=== PATIENT | male | born 1935 | race Caucasian/White ===

== ENCOUNTER 2016-10-13 05:47 | Day surgery (SDC) | payer MEDICARE, BC ==
[2016-10-13] MEDS ORDERED: Lactated Ringers 1,000 ML IV SCH (06:45)
[2016-10-13] MEDS ORDERED: Propofol 200 MG/20 ML SDV IV ONE (08:10)
[2016-10-13] MEDS ORDERED: Midazolam 1 MG/ML 2 ML SDV IV ONE (08:10)
[2016-10-13] MEDS ORDERED: Lidocaine 2% 100 MG/5 ML Syringe IVPUSH ONE (08:10)
--- NOTE | 2016-10-13 08:15 | PCM.HPR ---
H & P Addendum review - H & P Addendum Review Date Reviewed: 10/13/16 Patient was Examined: No Changes (Will also do EGD because of anemia, upper abdominal pain, weight loss, hx GERD)
--- NOTE | 2016-10-13 08:59 | PCM.OPNOTE ---
- General Post-Op/Procedure Note Date of Surgery/Procedure: 10/13/16 Operative Procedure(s): EGD. Colonoscopy with Bx Findings: Prox Ascending Colon Tumor Pre Op Diagnosis: Anemia, wt loss Post-Op Diagnosis: Same Anesthesia Technique: MAC Primary Surgeon: Blake Johnson Anesthesia Provider: Nataly Timmons Pathology: Colon Bx EBL in mLs: 1 Complications: None Condition: Good
[2016-10-13 10:40] VITALS: BP 114/52
[2016-10-13] MEDS ORDERED: Iopamidol 755 MG/ML 150 ML Bottle IV ONE (12:27)
--- NOTE | 2016-10-13 13:55 | OR ---
DATE OF OPERATION: 10/13/2016 SURGEON: Blake Johnson MD PREOPERATIVE DIAGNOSES: 1. Anemia. 2. Weight loss. POSTOPERATIVE DIAGNOSES: 1. Small hiatal hernia. 2. Proximal ascending colon tumor. PROCEDURE: 1. Esophagogastroduodenoscopy. 2. Colonoscopy with biopsy. ANESTHESIA: IV sedation. DESCRIPTION OF PROCEDURE: The patient was brought to the procedure room, where he was placed on his left side and IV sedation administered. Oral bite-block was placed and the upper endoscope advanced into the esophagus under direct vision without difficulty. Vocal cords were viewed and were normal. The scope was advanced to the third portion of the duodenum. Duodenum and pylorus were normal. Antrum and body of the stomach were normal. Retroflexion reveals a normal appearing fundus. A small regular hiatal hernia is noted. Squamocolumnar junction appears normal. There was no evidence of reflux esophagitis. Air was removed from the stomach and the scope withdrawn through the remaining esophagus, which appears normal. The patient tolerated this portion of the procedure well. Next, colonoscopy was performed, after digital rectal exam was performed, which was normal. The colonoscope was inserted and advanced to the level of the cecum without difficulty. Cecal position was confirmed by identifying the appendiceal lumen and ileocecal valve. Prep was good and surfaces were well visualized. Upon withdrawing the scope, there is an obvious malignancy in the proximal ascending colon that is at least half circumferential and is the source of his anemia. I did take several biopsies from this. The remaining ascending, transverse, and descending colon were normal. The colorectal anastomosis appears normal. Rectum was normal and retroflexion was normal. Air was removed and the scope was withdrawn. The patient tolerated the procedure well and returned to recovery in stable condition. RECOMMENDATIONS: I will have the patient obtain a CT scan of the chest, abdomen, and pelvis, and follow up with me at the end of the week for review of biopsies. /[id number] MARQUES/ELEAZAR
--- NOTE | 2016-10-13 15:44 | CT ---
INDICATION: Follow-up colon tumor, ascending colon. CT CHEST/ABDOMEN/PELVIS WITH CONTRAST: Spiral 2.5-mm axial sections were obtained through the chest, abdomen, and pelvis with oral and IV contrast (150 mL Isovue-370 at 1 mL per second due to limited IV access). Examination was obtained 10/13/2016. No comparison was available. Total Exam DLP = 2467.15 mGy-cm. CT CHEST: Examination of the chest was obtained, as noted above, revealing relatively minimal apical pleuroparenchymal scarring. There are some emphysematous changes noted in the lungs. No definite active infiltrate, effusion, or nodular changes could be identified to suggest malignancy or pneumonia or pleuritis. There is some pleuroparenchymal scarring of mild degree. Minimal mediastinal lymphadenopathy is noted, which is nonspecific. No mediastinal masses were identified. Calcifications are noted in the thoracic aorta, brachiocephalic vessels, and coronary arteries. The heart appears slightly generous in size. Aortic valvular area calcifications also noted. The gallbladder is absent with clips at the cystic duct compatible with cholecystectomy. The liver had a normal appearance. The spleen, pancreas, and adrenal glands appeared essentially normal. Renal fascial thickening is noted, compatible with a mild degree of renal cortical scarring. The kidneys otherwise appeared unremarkable. No retroperitoneal masses were identified. Calcifications are noted in the aorta, superior mesenteric artery, at the origins of the renal arteries, in the iliac, and minimally in the left femoral artery. Radioactive seeds are noted in the prostate, which does not appear to be enlarged. The urinary bladder appeared fairly normal. There is suggestion of a very early minimal right inguinal hernia including only fat and normal structures in that area. Inguinal lymphadenopathy is noted, which is nonspecific. Degenerative changes and disk disease with vacuum disk phenomenon are noted at the L5-S1 level. Mild hypertrophic degenerative changes are noted off vertebral bodies in the lumbar area in general, with bridging hyperostotic changes anterolaterally at T12-L1 and in mid and lower thoracic spine included on the study. The appendix is not definitely visualized. This should be correlated clinically. No finding to suggest metastatic disease was identified. A partially encircling overhanging edge soft tissue density is noted in the mid ascending colon, compatible with a carcinoma. No definite synchronous lesion is identified. There appears to have been previous surgery at the level of the sigmoid colon, with anastomoses there. No evidence of bowel obstruction was seen. IMPRESSION: 1. No evidence of metastatic disease could be identified in the chest, abdomen , or pelvis. 2. 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 3. Radioactive seeds at the prostate noted compatible with previous prostatic surgery. 4. Degenerative changes and disk disease L5-S1. Hypertrophic degenerative changes thoracolumbar spine. 5. Post-surgical change sigmoid colon. 6. Minimal left inguinal hernia which appears to include only fat. 7. Mild degree of renal cortical scarring. 8. ASD/ASHD. 9. Appendix not definitely visualized. 10. Post cholecystectomy. CT ABDOMEN: Examination of the abdomen was obtained by CT, as noted above, and revealed findings compatible with carcinoma in the mid ascending colon, involving the mucosa posteriorly - encircling the lumen posteriorly over a relatively short interval of the ascending colon. No definite retroperitoneal masses were identified with a mild degree of retroperitoneal lymphadenopathy, which is nonspecific. No definite evidence of metastatic disease was seen. CT PELVIS: Examination of the pelvis was obtained by CT, as noted above, and revealed evidence of radioactive seeds in the area of the prostate, compatible with previous prostatic CA. No definite metastatic disease process was identified. The appendix was not definitely visualized. Calcifications are noted in the arteries. Degenerative changes and disk disease are noted at L5-S1. Report faxed to Dr. Johnson on 10/13/2016 at 1541 hours. MTDD
== END 2016-10-13 10:20 | disposition home or self-care (01) ==
LOC: FB.SDS 05:47
PROVIDERS: ATTEND Surgery
DX: C18.2 Malignant neoplasm of ascending colon (principal); K44.9 Diaphragmatic hernia without obstruction or gangrene; Z88.0 Allergy status to penicillin; Z79.82 Long term (current) use of aspirin; Z79.899 Other long term (current) drug therapy
CPT/HCPCS: 00810; 36415; 43235; 45380; 71260; 74177; 80053; 82378; 85025; 88305; J2250; J2704; J7120; Q9967

== ENCOUNTER 2016-10-20 10:30 | Inpatient (IN) | payer MEDICARE, BC ==
[2016-10-20] MEDS ORDERED: Lactated Ringers 1,000 ML IV SCH (11:00)
[2016-10-20] MEDS ORDERED: Neostigmine Methylsulfate 10 MG/10 ML MDV IVPUSH ONE (12:30)
[2016-10-20] MEDS ORDERED: Rocuronium 50 MG/5 ML Vial IV ONE (12:30)
[2016-10-20] MEDS ORDERED: Labetalol 100 MG/20 ML MDV IV ONE (12:30)
[2016-10-20] MEDS ORDERED: Glycopyrrolate 0.2 MG/ML 5 ML MDV IV ONE (12:30)
[2016-10-20] MEDS ORDERED: Succinylcholine 200 MG/10 ML MDV IV ONE (12:30)
[2016-10-20] MEDS ORDERED: Citric Acid/Sodium Citrate Solution 30 ML Cup PO ONE (12:30)
[2016-10-20] MEDS ORDERED: cefOXitin 2 GM in Sodium Chloride 0.9% 100 ML IV ONE (12:30)
[2016-10-20] MEDS ORDERED: Ketorolac 30 MG/ML SDV IVPUSH ONE (12:30)
[2016-10-20] MEDS ORDERED: Lactated Ringers 1,000 ML IV ONE (12:30)
[2016-10-20] MEDS ORDERED: Ondansetron 4 MG/2 ML SDV IVPUSH ONE (12:30)
[2016-10-20] MEDS ORDERED: fentaNYL 100 MCG/2 ML SDV IV ONE (12:30)
[2016-10-20] MEDS ORDERED: Midazolam 1 MG/ML 2 ML SDV IV ONE (12:30)
[2016-10-20] MEDS ORDERED: Propofol 200 MG/20 ML SDV IV ONE (12:30)
--- NOTE | 2016-10-20 15:11 | PCM.HPR ---
H & P Addendum review - H & P Addendum Review Date of Original H & P: 10/17/16 Date Reviewed: 10/20/16 Time Reviewed: 10:30 Patient was Examined: No Changes
--- NOTE | 2016-10-20 15:13 | PCM.OPNOTE ---
- General Post-Op/Procedure Note Date of Surgery/Procedure: 10/20/16 Operative Procedure(s): Right Colectomy; Adhesiolysis Findings: Asc Colon Tumor Pre Op Diagnosis: Colon Ca Post-Op Diagnosis: Same Anesthesia Technique: General ET Tube Primary Surgeon: Blake Johnson Anesthesia Provider: Nataly Timmons Hospital Carrier: Bruce Fink Pathology: Right Colon EBL in mLs: 200 Complications: None Condition: Good
[2016-10-20] MEDS ORDERED: Naloxone 0.4 MG/ML SDV IVPUSH PRN (15:21)
[2016-10-20] MEDS: Morphine 2 MG/ML Syringe IVPUSH PRN ×2 (16:00→16:22)
[2016-10-20] MEDS: Morphine PF 30 MG/30 ML PCA Vial IV PRN (17:12)
[2016-10-20] MEDS: Pantoprazole 40 MG Vial IVPUSH SCH (17:29)
[2016-10-20] MEDS: Ketorolac 15 MG/ML SDV IVPUSH SCH (19:38)
[2016-10-21] MEDS: Ketorolac 15 MG/ML SDV IVPUSH SCH ×4 (00:50→19:35)
[2016-10-21] MEDS: Lactated Ringers 1,000 ML IV SCH ×3 (03:56→21:54)
[2016-10-21] MEDS: Morphine PF 30 MG/30 ML PCA Vial IV PRN (04:12)
--- NOTE | 2016-10-21 09:17 | PCM.SURGPN ---
- General Info Date of Service: 10/21/16 POD#: 1 Functional Status: Reports: Pain Controlled, Ambulating - Review of Systems General: Reports: No Symptoms Pulmonary: Reports: No Symptoms Cardiovascular: Reports: No Symptoms Gastrointestinal: Reports: No Symptoms - Patient Data Vitals - Most Recent: Last Vital Signs Temp 98.2 F 10/21/16 03:55 Pulse 74 10/21/16 07:57 Resp 18 10/21/16 03:55 BP 132/64 10/21/16 03:55 Pulse Ox 93 L 10/21/16 07:57 Weight - Most Recent: 130.635 kg I&O - Last 24 Hours: Intake & Output 10/20/16 10/21/16 10/21/16 22:59 06:59 14:59 Intake Total 665 988 Output Total 175 300 Balance 490 688 Lab Results Last 24 Hrs: Laboratory Results - last 24 hr 10/20/16 10/21/16 10/21/16 Range/Units 11:50 06:30 06:30 WBC 12.8 H (4.5-12.0) X10-3/uL RBC 3.85 L (4.30-5.75) x10(6)uL Hgb 8.5 L (11.5-15.5) g/dL Hct 27.6 L (30.0-51.3) % MCV 71.5 L (80-96) fL MCH 22.2 L (27.7-33.6) pg MCHC 31.0 L (32.2-35.4) g/dL RDW 20.3 H (11.5-15.5) % Plt Count 340 (125-369) X10(3)uL MPV 8.3 (7.4-10.4) fL Neut % (Auto) 84.1 H (46-82) % Lymph % (Auto) 8.2 L (13-37) % Todd % (Auto) 7.2 (4-12) % Eos % (Auto) 0 L (1.0-5.0) % Baso % (Auto) 0 (0-2) % Neut # (Auto) 10.8 H (1.6-8.3) # Lymph # (Auto) 1.0 (0.6-5.0) # Todd # (Auto) 0.9 (0.0-1.3) # Eos # (Auto) 0.0 (0.0-0.8) # Baso # (Auto) 0.1 (0.0-0.2) # Sodium 137 (135-145) mmol/L Potassium 4.2 (3.5-5.3) mmol/L Chloride 106 (100-110) mmol/L Carbon Dioxide 25 (23-29) mmol/L BUN 14 (8-23) mg/dL Creatinine 1.0 (0.6-1.3) mg/dL Est Cr Clr Drug Dosing 62.86 mL/min Estimated GFR (MDRD) > 60 (>60) BUN/Creatinine Ratio 14.0 (9-20) Glucose 153 H (80-116) mg/dL Calcium 8.8 (8.6-10.2) mg/dL Blood Type A POSITIVE Gel Antibody Screen Negative Med Orders - Current: Current Medications Enoxaparin Sodium (Lovenox) 30 mg SUBCUT Q24H [facility] [place] Lactated Ringer's (Ringers, Lactated) 1,000 mls @ 125 mls/hr IV ASDIRECTED [facility] Last Admin: 10/21/16 03:56 Dose: 125 mls/hr Cefoxitin Sodium 1 gm/ Sodium (Chloride) 50 mls @ 100 mls/hr IV Q6H [facility] [place] Stop: 10/22/16 07:29 Last Admin: 10/21/16 06:27 Dose: 100 mls/hr Ketorolac Tromethamine (Toradol) 15 mg IVPUSH Q6H [facility] [place] Stop: 10/25/16 15:20 Last Admin: 10/21/16 06:27 Dose: 15 mg Metoprolol Tartrate (Lopressor) 25 mg PO BID [facility] [place] Morphine Sulfate (Morphine Hotel Or Motel Receptionist 30 Mg In 30 Ml) 0 mg IV ASDIRECTED PRN; Protocol PRN Reason: Pain (severe 7-10) Last Admin: 10/21/16 04:12 Dose: 30 mg Morphine Sulfate (Morphine) 2 mg IVPUSH Q3M PRN PRN Reason: Abdominal Pain Last Admin: 10/20/16 16:22 Dose: 2 mg Naloxone HCl (Narcan) 0.4 mg IVPUSH Q2M PRN PRN Reason: Respiratory Distress Pantoprazole Sodium (Protonix Iv) 40 mg IVPUSH DAILY@1600 [facility] Last Admin: 10/20/16 17:29 Dose: 40 mg Sodium Chloride (Saline Flush) 10 ml FLUSH ASDIRECTED PRN PRN Reason: Keep Vein Open Discontinued Medications Lactated Ringer's (Ringers, Lactated) 1,000 mls @ 125 mls/hr IV ASDIRECTED [facility] [place] Last Admin: 10/20/16 12:10 Dose: 125 mls/hr Cefoxitin Sodium 2 gm/ Sodium (Chloride) 100 mls @ 200 mls/hr IV ONETIME ONE Stop: 10/20/16 12:59 Last Admin: 10/20/16 12:20 Dose: 200 mls/hr - Exam Wound/Incisions: Dressing Dry and Intact General: Alert, Oriented Lungs: Clear to Auscultation, Normal Respiratory Effort Cardiovascular: Regular Rate, Regular Rhythm GI/Abdominal Exam: Soft - Problem List Review Problem List Initiated/Reviewed/Updated: Yes - My Orders Last 24 Hours: Active Orders 24 hr Category Date Time Status Patient Status [ADT] Routine ADT 10/20/16 11:00 Active Ambulate [RC] QSHIFT Care 10/20/16 15:13 Active Antiembolic Devices [RC] .Routine Care 10/20/16 15:16 Active Cardiac Monitoring [RC] .As Directed Care 10/20/16 15:21 Inactive Communication Order [RC] STAT Care 10/20/16 15:21 Active Notify Provider [RC] PRN Care 10/20/16 15:21 Active Oxygen Therapy [RC] PRN Care 10/20/16 15:13 Active FINANCIAL AID MANAGER Record [RC] 06,14,22 Care 10/20/16 15:21 Active Pulse Oximetry [RC] CONTINUOUS Care 10/20/16 15:21 Inactive RT Incentive Spirometry [RC] Q2HWA Care 10/20/16 15:13 Active VTE/DVT Education [RC] Click to Edit Care 10/20/16 15:16 Active Vital Signs [RC] 00,04,08,12,16,20 Care 10/20/16 15:13 Active Nothing Per Oral Diet [DIET] Diet 10/20/16 Dinner Active Enoxaparin [Lovenox] Med 10/21/16 12:00 Active 30 mg SUBCUT Q24H Ketorolac [Toradol] Med 10/20/16 19:00 Active 15 mg IVPUSH Q6H Lactated Ringers [Ringers, Lactated] 1,000 ml Med 10/20/16 15:15 Active IV ASDIRECTED Metoprolol Tartrate [Lopressor] Med 10/21/16 09:00 Active 25 mg PO BID Morphine Med 10/20/16 15:38 Active 2 mg IVPUSH Q3M PRN Morphine PF [Morphine FINANCIAL AID MANAGER 30 MG in 30 ML] Med 10/20/16 15:21 Active See Protocol IV ASDIRECTED PRN Naloxone [Narcan] Med 10/20/16 15:21 Active 0.4 mg IVPUSH Q2M PRN Pantoprazole [ProTONIX IV] Med 10/20/16 16:00 Active 40 mg IVPUSH DAILY@1600 Sodium Chloride 0.9% [Saline Flush] Med 10/20/16 11:00 Active 10 ml FLUSH ASDIRECTED PRN cefOXitin [Mefoxin] 1 gm Med 10/20/16 19:00 Active Sodium Chloride 0.9% [Normal Saline] 50 ml IV Q6H DVT/VTE Prophylaxis Reflex [OM.PC] Per Unit Routine Oth 10/20/16 15:16 Ordered Medication Discontinuation Instructions [OM.PC] Stat Oth 10/20/16 15:21 Ordered Peripheral IV Insertion Adult [OM.PC] Routine Oth 10/20/16 11:00 Ordered Sequential Compression Device [OM.PC] Routine Oth 10/20/16 11:00 Ordered Resuscitation Status Routine Resus Stat 10/20/16 09:57 Ordered EKG 12 Lead [EK] Routine Ther 10/20/16 10:23 Ordered Medication Orders Enoxaparin Sodium (Lovenox) 30 mg SUBCUT Q24H [facility] Lactated Ringer's (Ringers, Lactated) 1,000 mls @ 125 mls/hr IV ASDIRECTED [facility] Last Admin: 10/21/16 03:56 Dose: 125 mls/hr Cefoxitin Sodium 1 gm/ Sodium (Chloride) 50 mls @ 100 mls/hr IV Q6H [facility] Stop: 10/22/16 07:29 Last Admin: 10/21/16 06:27 Dose: 100 mls/hr Infusion: 10/21/16 01:20 Dose: 100 mls/hr Admin: 10/21/16 00:50 Dose: 100 mls/hr Infusion: 10/20/16 19:52 Dose: 100 mls/hr Admin: 10/20/16 19:22 Dose: 100 mls/hr Ketorolac Tromethamine (Toradol) 15 mg IVPUSH Q6H [facility] Stop: 10/25/16 15:20 Last Admin: 10/21/16 06:27 Dose: 15 mg Admin: 10/21/16 00:50 Dose: 15 mg Admin: 10/20/16 19:38 Dose: 15 mg Metoprolol Tartrate (Lopressor) 25 mg PO BID [facility] [place] Morphine Sulfate (Morphine Hotel [employer]el Receptionist 30 Mg In 30 Ml) 0 mg IV ASDIRECTED PRN; Protocol PRN Reason: Pain (severe 7-10) Last Admin: 10/21/16 04:12 Dose: 30 mg Admin: 10/20/16 17:12 Dose: 30 mg Morphine Sulfate (Morphine) 2 mg IVPUSH Q3M PRN PRN Reason: Abdominal Pain Last Admin: 10/20/16 16:22 Dose: 2 mg Admin: 10/20/16 16:00 Dose: 2 mg Naloxone HCl (Narcan) 0.4 mg IVPUSH Q2M PRN PRN Reason: Respiratory Distress Pantoprazole Sodium (Protonix Iv) 40 mg IVPUSH DAILY@1600 [facility] Last Admin: 10/20/16 17:29 Dose: 40 mg Sodium Chloride (Saline Flush) 10 ml FLUSH ASDIRECTED PRN PRN Reason: Keep Vein Open - Assessment Assessment (Free Text/Narrative):: Doing well POD #1 Hgb 8.5 - Plan Plan (Free Text/Narrative):: Cont as is, start Lovenox
[2016-10-21] MEDS: Metoprolol Tartrate 25 MG Tab PO SCH ×2 (10:08→21:53)
[2016-10-21] MEDS: Promethazine 25 MG in Sodium Chloride 0.9% 50 ML IV PRN (11:33)
[2016-10-21] MEDS: Enoxaparin 30 MG/0.3 ML Syringe SUBCUT SCH (12:48)
[2016-10-21] MEDS: Pantoprazole 40 MG Vial IVPUSH SCH (18:06)
[2016-10-22] MEDS: Morphine PF 30 MG/30 ML PCA Vial IV PRN (00:22)
[2016-10-22] MEDS: Ketorolac 15 MG/ML SDV IVPUSH SCH ×4 (00:25→19:46)
[2016-10-22] MEDS: Lactated Ringers 1,000 ML IV SCH ×3 (06:12→23:21)
[2016-10-22] MEDS: Metoprolol Tartrate 25 MG Tab PO SCH ×2 (09:27→21:05)
[2016-10-22] MEDS: Enoxaparin 30 MG/0.3 ML Syringe SUBCUT SCH (12:10)
[2016-10-22] MEDS: Sodium Chloride 0.9% 10 ML Syringe FLUSH PRN (12:18)
--- NOTE | 2016-10-22 13:37 | PCM.SURGPN ---
- General Info Date of Service: 10/22/16 POD#: 2 Functional Status: Reports: Pain Controlled, Ambulating - Review of Systems General: Reports: No Symptoms Pulmonary: Reports: No Symptoms Cardiovascular: Reports: No Symptoms Gastrointestinal: Reports: No Symptoms, Abdominal Pain (controlled) - Patient Data Vitals - Most Recent: Last Vital Signs Temp 98.6 F 10/22/16 12:00 Pulse 79 10/22/16 12:00 Resp 18 10/22/16 12:00 BP 123/70 10/22/16 12:00 Pulse Ox 93 L 10/22/16 12:00 Weight - Most Recent: 130.635 kg I&O - Last 24 Hours: Intake & Output 10/21/16 10/22/16 10/22/16 22:59 06:59 14:59 Intake Total 1015 994 Output Total 350 350 Balance 665 644 Med Orders - Current: Current Medications Enoxaparin Sodium (Lovenox) 30 mg SUBCUT Q24H [facility] Last Admin: 10/22/16 12:10 Dose: 30 mg Lactated Ringer's (Ringers, Lactated) 1,000 mls @ 125 mls/hr IV ASDIRECTED [facility] Last Admin: 10/22/16 06:12 Dose: 125 mls/hr Promethazine HCl 25 mg/ Sodium (Chloride) 51 mls @ 200 mls/hr IV Q6H PRN PRN Reason: Nausea/Vomiting Last Admin: 10/21/16 11:33 Dose: 200 mls/hr Ketorolac Tromethamine (Toradol) 15 mg IVPUSH Q6H [facility] Stop: 10/25/16 15:20 Last Admin: 10/22/16 12:11 Dose: 15 mg Metoprolol Tartrate (Lopressor) 25 mg PO BID [facility] Last Admin: 10/22/16 09:27 Dose: 25 mg Morphine Sulfate (Morphine Anodiser 30 Mg In 30 Ml) 0 mg IV ASDIRECTED PRN; Protocol PRN Reason: Pain (severe 7-10) Last Admin: 10/22/16 00:22 Dose: 30 mg Naloxone HCl (Narcan) 0.4 mg IVPUSH Q2M PRN PRN Reason: Respiratory Distress Pantoprazole Sodium (Protonix Iv) 40 mg IVPUSH DAILY@1600 [facility] Last Admin: 10/21/16 18:06 Dose: 40 mg Sodium Chloride (Saline Flush) 10 ml FLUSH ASDIRECTED PRN PRN Reason: Keep Vein Open Last Admin: 10/22/16 12:18 Dose: 10 ml Discontinued Medications Lactated Ringer's (Ringers, Lactated) 1,000 mls @ 125 mls/hr IV ASDIRECTED [facility] Last Admin: 10/20/16 12:10 Dose: 125 mls/hr Cefoxitin Sodium 2 gm/ Sodium (Chloride) 100 mls @ 200 mls/hr IV ONETIME ONE Stop: 10/20/16 12:59 Last Admin: 10/20/16 12:20 Dose: 200 mls/hr Cefoxitin Sodium 1 gm/ Sodium (Chloride) 50 mls @ 100 mls/hr IV Q6H [facility] Stop: 10/22/16 07:29 Last Admin: 10/22/16 06:12 Dose: 100 mls/hr Morphine Sulfate (Morphine) 2 mg IVPUSH Q3M PRN PRN Reason: Abdominal Pain Last Admin: 10/20/16 16:22 Dose: 2 mg - Exam Wound/Incisions: Healing Well General: Alert, Oriented Lungs: Clear to Auscultation, Normal Respiratory Effort GI/Abdominal Exam: Soft, Non-Tender - Problem List Review Problem List Initiated/Reviewed/Updated: Yes - My Orders Last 24 Hours: Active Orders 24 hr Category Date Time Status DC Denney Catheter [Urinary Catheter Removal] [RC] Per Care 10/22/16 13:34 Ordered Unit Routine Medication Orders Enoxaparin Sodium (Lovenox) 30 mg SUBCUT Q24H [facility] Last Admin: 10/22/16 12:10 Dose: 30 mg Admin: 10/21/16 12:48 Dose: 30 mg Lactated Ringer's (Ringers, Lactated) 1,000 mls @ 125 mls/hr IV ASDIRECTED [facility] Last Admin: 10/22/16 06:12 Dose: 125 mls/hr Infusion: 10/22/16 05:54 Dose: 125 mls/hr Admin: 10/21/16 21:54 Dose: 125 mls/hr Infusion: 10/21/16 20:49 Dose: 125 mls/hr Admin: 10/21/16 12:49 Dose: 125 mls/hr Infusion: 10/21/16 11:56 Dose: 125 mls/hr Admin: 10/21/16 03:56 Dose: 125 mls/hr Promethazine HCl 25 mg/ Sodium (Chloride) 51 mls @ 200 mls/hr IV Q6H PRN PRN Reason: Nausea/Vomiting Last Admin: 10/21/16 11:33 Dose: 200 mls/hr Ketorolac Tromethamine (Toradol) 15 mg IVPUSH Q6H [facility] Stop: 10/25/16 15:20 Last Admin: 10/22/16 12:11 Dose: 15 mg Admin: 10/22/16 06:12 Dose: 15 mg Admin: 10/22/16 00:25 Dose: 15 mg Admin: 10/21/16 19:35 Dose: 15 mg Admin: 10/21/16 12:45 Dose: 15 mg Admin: 10/21/16 06:27 Dose: 15 mg Admin: 10/21/16 00:50 Dose: 15 mg Admin: 10/20/16 19:38 Dose: 15 mg Metoprolol Tartrate (Lopressor) 25 mg PO BID [facility] Last Admin: 10/22/16 09:27 Dose: 25 mg Admin: 10/21/16 21:53 Dose: 25 mg Admin: 10/21/16 10:08 Dose: 25 mg Morphine Sulfate (Morphine Anodiser 30 Mg In 30 Ml) 0 mg IV ASDIRECTED PRN; Protocol PRN Reason: Pain (severe 7-10) Last Admin: 10/22/16 00:22 Dose: 30 mg Admin: 10/21/16 04:12 Dose: 30 mg Admin: 10/20/16 17:12 Dose: 30 mg Naloxone HCl (Narcan) 0.4 mg IVPUSH Q2M PRN PRN Reason: Respiratory Distress Pantoprazole Sodium (Protonix Iv) 40 mg IVPUSH DAILY@1600 [facility] Last Admin: 10/21/16 18:06 Dose: 40 mg Admin: 10/20/16 17:29 Dose: 40 mg Sodium Chloride (Saline Flush) 10 ml FLUSH ASDIRECTED PRN PRN Reason: Keep Vein Open Last Admin: 10/22/16 12:18 Dose: 10 ml - Assessment Assessment (Free Text/Narrative):: Doing well POD #2 - Plan Plan (Free Text/Narrative):: Discontinue CYBER REVERSE ENGINEER continuous rate D/C denney
--- NOTE | 2016-10-22 15:05 | OR ---
DATE OF OPERATION: 10/22/2016 SURGEON: Blake Johnson MD PREOPERATIVE DIAGNOSIS: Carcinoma of ascending colon. POSTOPERATIVE DIAGNOSIS: Carcinoma of ascending colon with adhesions. PROCEDURE PERFORMED: Right colectomy with adhesiolysis. CSR: Bruce Fink MD. ANESTHESIA: General. DESCRIPTION OF PROCEDURE: The patient was brought to the operating room, where general endotracheal anesthesia was administered. A Atkinson catheter was inserted and Flowtrons applied. The abdomen was prepped with ChloraPrep and draped sterilely. An upper midline incision was made through his previous scar and extended into the peritoneal cavity without difficulty. There were fairly extensive adhesions along the anterior abdominal wall consisting of omentum, colon, and small bowel. Approximately 30 minutes was spent, taking down and freeing these adhesions. The wound protractor was then placed and Acosta retractor system set up. The cecum and ascending colon were mobilized along the peritoneal reflection using electrocautery. This continued up to the hepatic flexure and proximal transverse colon. The middle colic vessel was identified and the mesocolon transected to the right of the middle colic vessels. The omentum was split throughout this level also. The transverse colon was transected with a BRIANNA 60 stapler. The right colic vessels were taken down with pions and doubly tied with #0 Vicryl sutures. The transection line was decided to be approximately 10 cm proximal to the ileocecal valve, and the small bowel mesentery was scored at this level and divided with hemostats and 0 Vicryl ties. The terminal ilium was divided with a BRIANNA 60 stapler. The ileocolic vessels were then taken down with pions and 0 Vicryl ties. Specimen was handed off for pathology and opened. The tumor was evident. I did not feel any gross lymphadenopathy. The ileocolic anastomosis was then performed by using one application of the BRIANNA 60 stapler across the antimesenteric surfaces and the colotomy closed with a TA- 60 stapler. The anterior surface of the anastomosis and heel of the anastomosis were secured with interrupted 3-0 silk sutures. Mesenteric defect was closed with running 2-0 chromic. Wound was thoroughly irrigated and hemostasis assured. The general exploration revealed palpable and visible small bowel to be normal. The right lobe of liver feels to have a cyst at the dome but no evidence of metastatic disease. The gallbladder was surgically absent. Midline fascia was closed with running 2-0 Prolene with a few interrupted 1-0 PDS internal retention sutures. The wound was thoroughly irrigated, and the skin closed with marquita. A sterile dressing was applied. The patient tolerated the procedure well. Estimated blood loss was 200 mL. He returned to postanesthesia in stable condition. /[id number] MARQUES/ELEAZAR
[2016-10-22] MEDS: Pantoprazole 40 MG Vial IVPUSH SCH (16:27)
[2016-10-23] MEDS: Ketorolac 15 MG/ML SDV IVPUSH SCH ×5 (01:51→19:43)
[2016-10-23] MEDS: Morphine PF 30 MG/30 ML PCA Vial IV PRN (01:59)
[2016-10-23] MEDS: Metoprolol Tartrate 25 MG Tab PO SCH ×2 (09:45→21:08)
[2016-10-23] MEDS: Enoxaparin 30 MG/0.3 ML Syringe SUBCUT SCH (12:12)
[2016-10-23] MEDS: Lactated Ringers 1,000 ML IV SCH (15:50)
[2016-10-23] MEDS: Pantoprazole 40 MG Vial IVPUSH SCH (15:54)
--- NOTE | 2016-10-23 19:21 | PCM.SURGPN ---
- General Info Date of Service: 10/23/16 Date of Surgery/Procedure: 10/20/16 POD#: 3 Functional Status: Reports: Pain Controlled (Patient notes moderate pain with activity) - Review of Systems Pulmonary: Reports: No Symptoms Gastrointestinal: Denies: Flatus, Nausea, Vomiting Musculoskeletal: Denies: Leg Pain - Patient Data Vitals - Most Recent: Last Vital Signs Temp 97.6 F 10/23/16 16:10 Pulse 75 10/23/16 16:10 Resp 18 10/23/16 16:10 BP 129/65 10/23/16 16:10 Pulse Ox 96 10/23/16 16:10 Weight - Most Recent: 288 lb I&O - Last 24 Hours: Intake & Output 10/23/16 10/23/16 10/23/16 06:59 14:59 22:59 Intake Total 815 Output Total 450 Balance -450 815 Med Orders - Current: Current Medications Enoxaparin Sodium (Lovenox) 30 mg SUBCUT Q24H [facility] Last Admin: 10/23/16 12:12 Dose: 30 mg Lactated Ringer's (Ringers, Lactated) 1,000 mls @ 125 mls/hr IV ASDIRECTED [facility] Last Admin: 10/23/16 15:50 Dose: 125 mls/hr Promethazine HCl 25 mg/ Sodium (Chloride) 51 mls @ 200 mls/hr IV Q6H PRN PRN Reason: Nausea/Vomiting Last Admin: 10/21/16 11:33 Dose: 200 mls/hr Ketorolac Tromethamine (Toradol) 15 mg IVPUSH Q6H [facility] Stop: 10/25/16 15:20 Last Admin: 10/23/16 16:31 Dose: Not Given Metoprolol Tartrate (Lopressor) 25 mg PO BID [facility] Last Admin: 10/23/16 09:45 Dose: 25 mg Morphine Sulfate (Morphine Employment Clerk 30 Mg In 30 Ml) 0 mg IV ASDIRECTED PRN; Protocol PRN Reason: Pain (severe 7-10) Last Admin: 10/23/16 01:59 Dose: 30 mg Naloxone HCl (Narcan) 0.4 mg IVPUSH Q2M PRN PRN Reason: Respiratory Distress Pantoprazole Sodium (Protonix Iv) 40 mg IVPUSH DAILY@1600 [facility] Last Admin: 10/23/16 15:54 Dose: 40 mg Sodium Chloride (Saline Flush) 10 ml FLUSH ASDIRECTED PRN PRN Reason: Keep Vein Open Last Admin: 10/22/16 12:18 Dose: 10 ml Discontinued Medications Lactated Ringer's (Ringers, Lactated) 1,000 mls @ 125 mls/hr IV ASDIRECTED [facility] Last Admin: 10/20/16 12:10 Dose: 125 mls/hr Cefoxitin Sodium 2 gm/ Sodium (Chloride) 100 mls @ 200 mls/hr IV ONETIME ONE Stop: 10/20/16 12:59 Last Admin: 10/20/16 12:20 Dose: 200 mls/hr Cefoxitin Sodium 1 gm/ Sodium (Chloride) 50 mls @ 100 mls/hr IV Q6H [facility] Stop: 10/22/16 07:29 Last Admin: 10/22/16 06:12 Dose: 100 mls/hr Morphine Sulfate (Morphine) 2 mg IVPUSH Q3M PRN PRN Reason: Abdominal Pain Last Admin: 10/20/16 16:22 Dose: 2 mg - Exam Wound/Incisions: Dressing Dry and Intact General: Alert, Oriented Lungs: Normal Respiratory Effort - Problem List Review Problem List Initiated/Reviewed/Updated: Yes - My Orders Last 24 Hours: Active Orders 24 hr Category Date Time Status BASIC METABOLIC PANEL,BMP [CHEM] Routine Lab 10/24/16 07:00 Ordered CBC W/O DIFF,HEMOGRAM [HEME] Routine Lab 10/24/16 07:00 Ordered Medication Orders Enoxaparin Sodium (Lovenox) 30 mg SUBCUT Q24H [facility] Last Admin: 10/23/16 12:12 Dose: 30 mg Admin: 10/22/16 12:10 Dose: 30 mg Admin: 10/21/16 12:48 Dose: 30 mg Lactated Ringer's (Ringers, Lactated) 1,000 mls @ 125 mls/hr IV ASDIRECTED [facility] Last Admin: 10/23/16 15:50 Dose: 125 mls/hr Infusion: 10/23/16 07:21 Dose: 125 mls/hr Admin: 10/22/16 23:21 Dose: 125 mls/hr Infusion: 10/22/16 23:06 Dose: 125 mls/hr Admin: 10/22/16 15:06 Dose: 125 mls/hr Infusion: 10/22/16 14:12 Dose: 125 mls/hr Admin: 10/22/16 06:12 Dose: 125 mls/hr Infusion: 10/22/16 05:54 Dose: 125 mls/hr Admin: 10/21/16 21:54 Dose: 125 mls/hr Infusion: 10/21/16 20:49 Dose: 125 mls/hr Admin: 10/21/16 12:49 Dose: 125 mls/hr Infusion: 10/21/16 11:56 Dose: 125 mls/hr Admin: 10/21/16 03:56 Dose: 125 mls/hr Promethazine HCl 25 mg/ Sodium (Chloride) 51 mls @ 200 mls/hr IV Q6H PRN PRN Reason: Nausea/Vomiting Last Admin: 10/21/16 11:33 Dose: 200 mls/hr Ketorolac Tromethamine (Toradol) 15 mg IVPUSH Q6H [facility] Stop: 10/25/16 15:20 Last Admin: 10/23/16 16:31 Dose: Not Given Admin: 10/23/16 14:35 Dose: 15 mg Admin: 10/23/16 01:51 Dose: 15 mg Admin: 10/22/16 19:46 Dose: 15 mg Admin: 10/22/16 12:11 Dose: 15 mg Admin: 10/22/16 06:12 Dose: 15 mg Admin: 10/22/16 00:25 Dose: 15 mg Admin: 10/21/16 19:35 Dose: 15 mg Admin: 10/21/16 12:45 Dose: 15 mg Admin: 10/21/16 06:27 Dose: 15 mg Admin: 10/21/16 00:50 Dose: 15 mg Admin: 10/20/16 19:38 Dose: 15 mg Metoprolol Tartrate (Lopressor) 25 mg PO BID [facility] Last Admin: 10/23/16 09:45 Dose: 25 mg Admin: 10/22/16 21:05 Dose: 25 mg Admin: 10/22/16 09:27 Dose: 25 mg Admin: 10/21/16 21:53 Dose: 25 mg Admin: 10/21/16 10:08 Dose: 25 mg Morphine Sulfate (Morphine Employment Clerk 30 Mg In 30 Ml) 0 mg IV ASDIRECTED PRN; Protocol PRN Reason: Pain (severe 7-10) Last Admin: 10/23/16 01:59 Dose: 30 mg Admin: 10/22/16 00:22 Dose: 30 mg Admin: 10/21/16 04:12 Dose: 30 mg Admin: 10/20/16 17:12 Dose: 30 mg Naloxone HCl (Narcan) 0.4 mg IVPUSH Q2M PRN PRN Reason: Respiratory Distress Pantoprazole Sodium (Protonix Iv) 40 mg IVPUSH DAILY@1600 [facility] Last Admin: 10/23/16 15:54 Dose: 40 mg Admin: 10/22/16 16:27 Dose: 40 mg Admin: 10/21/16 18:06 Dose: 40 mg Admin: 10/20/16 17:29 Dose: 40 mg Sodium Chloride (Saline Flush) 10 ml FLUSH ASDIRECTED PRN PRN Reason: Keep Vein Open Last Admin: 10/22/16 12:18 Dose: 10 ml - Assessment Assessment (Free Text/Narrative):: POD#3 Right Colectomy - progressing satisfactory - afebrile no flatus yet voiding OK without denney - Plan Plan (Free Text/Narrative):: Continue IV and pain control encourage ambulation continue NPO until evidence of return of bowel function
[2016-10-24] MEDS: Ketorolac 15 MG/ML SDV IVPUSH SCH ×4 (01:28→18:10)
[2016-10-24] MEDS: Lactated Ringers 1,000 ML IV SCH ×2 (02:06→14:42)
[2016-10-24] MEDS: Promethazine 25 MG in Sodium Chloride 0.9% 50 ML IV PRN ×2 (06:18→18:12)
[2016-10-24] MEDS: Metoprolol Tartrate 25 MG Tab PO SCH ×2 (08:39→22:02)
[2016-10-24] MEDS ORDERED: Iopamidol 755 MG/ML 150 ML Bottle IV ONE (09:39)
[2016-10-24] MEDS ORDERED: Ondansetron 4 MG/2 ML SDV IVPUSH ONE (11:00)
[2016-10-24] MEDS ORDERED: Lactated Ringers 1,000 ML IV ONE (11:00)
[2016-10-24] MEDS ORDERED: Glycopyrrolate 0.2 MG/ML 5 ML MDV IV ONE (11:00)
[2016-10-24] MEDS ORDERED: Propofol 200 MG/20 ML SDV IV ONE (11:00)
[2016-10-24] MEDS ORDERED: Morphine 10 MG/ML Syringe IVPUSH ONE (11:00)
[2016-10-24] MEDS ORDERED: Succinylcholine 200 MG/10 ML MDV IV ONE (11:00)
[2016-10-24] MEDS ORDERED: Rocuronium 50 MG/5 ML Vial IV ONE (11:00)
[2016-10-24] MEDS ORDERED: Midazolam 1 MG/ML 2 ML SDV IV ONE (11:00)
[2016-10-24] MEDS ORDERED: Neostigmine Methylsulfate 10 MG/10 ML MDV IVPUSH ONE (11:00)
[2016-10-24] MEDS ORDERED: fentaNYL 100 MCG/2 ML SDV IV ONE (11:00)
[2016-10-24] MEDS ORDERED: Phenylephrine 1% 10 MG/ML SDV IV ONE (11:00)
--- NOTE | 2016-10-24 11:13 | CT ---
INDICATION: Severe pain after right colectomy. CT ABDOMEN AND PELVIS WITH CONTRAST: Spiral 2.5-mm axial sections were obtained through the abdomen and pelvis with an additional run through the lower chest/upper abdomen to include the entire liver, with sagittal and coronal reconstructions, 10/24/2016, utilizing 150 mL Isovue-370 at 3.5 mL per second. Findings were compared with 10/13/2016 examination. Total Exam DLP = 2262.03 mGy-cm. Minimal pleuroparenchymal changes are noted at the lung bases, appearing slightly more prominent than on the previous examination. Findings may represent some atelectasis and possibly very minimal pneumonia and pleuritis post surgically. No gross consolidating pneumonia was identified. Coronary artery calcifications are noted. Calcifications are noted in the aorta. The heart is slightly enlarged. Abdominal ascites is noted surrounding the liver and spleen with fluid extending into the paracolic gutters bilaterally. The amount of fluid on the right is more prominent. Bubbles of free intraperitoneal air are noted. Air/gas is noted, which conceivably could be secondary to post-surgical change. Radioactive seeds are noted in the prostate. The urinary bladder was normal in appearance. Multiple fluid-filled loops of small bowel are noted with air-fluid levels, which may be on the basis of paralytic ileus post surgically. Air-fluid level also noted in the colon. Clips compatible with cholecystectomy are noted. No focal liver lesions were identified. Evidence of right hemicolectomy is noted with no definite mechanically obstructive process identified, since there is fluid throughout the small and large bowel. IMPRESSION: 1. The patient is post right hemicolectomy with findings of ascites and relatively minimal amount of free air in the abdomen, likely on that basis. However, the possibility of peritonitis is difficult to entirely exclude. Findings should be correlated clinically therefore. Most of the bubbles of air or gas were in the midline anteriorly, although a few were noted right laterally and posteriorly just below the level of the liver and anterior to the right kidney. The possibility of a bowel leak, also, is difficult to entirely exclude. 2. Probable paralytic ileus post-surgically, with no definite mechanically obstructive process. 3. Radioactive seeds prostate. 4. Post cholecystectomy CT PELVIS: Examination of the pelvis was obtained by CT, as noted above, revealing some fat stranding extending into the pelvis, which may be on the basis of previous surgery. Multiple loops of small bowel with air-fluid levels are noted. Fluid is noted in the colon also. Findings are compatible post-op paralytic ileus and should be correlated clinically. Only one abnormal air bubble was noted in the uppermost pelvis anteriorly, likely in the surgical wound. No gross free air was seen. No gross fluid collections were seen in the pelvis. Radioactive seeds were noted in the prostate. Report was called to Dr. Johnson at 1040 hours, 10/24/2016. [facility]
--- NOTE | 2016-10-24 11:18 | PCM.SURGPN ---
- General Info Date of Service: 10/24/16 POD#: 4 Functional Status: Reports: Urinating, New Symptoms (severe abd pain and nausea) . Denies: Pain Controlled - Review of Systems General: Denies: Fever, Chills Pulmonary: Reports: No Symptoms Cardiovascular: Reports: No Symptoms Gastrointestinal: Reports: Abdominal Pain (severe diffuse), Other (loose stools today) - Patient Data Vitals - Most Recent: Last Vital Signs Temp 98.7 F 10/24/16 10:56 Pulse 82 10/24/16 10:56 Resp 18 10/24/16 10:56 BP 150/80 H 10/24/16 10:56 Pulse Ox 97 10/24/16 10:56 Weight - Most Recent: 130.635 kg I&O - Last 24 Hours: Intake & Output 10/23/16 10/24/16 10/24/16 22:59 06:59 14:59 Intake Total 918 705 Output Total 500 Balance 918 205 Lab Results Last 24 Hrs: Laboratory Results - last 24 hr 10/24/16 10/24/16 Range/Units 06:30 06:30 WBC 7.6 (4.5-12.0) X10-3/uL RBC 3.97 L (4.30-5.75) x10(6)uL Hgb 8.6 L (11.5-15.5) g/dL Hct 28.3 L (30.0-51.3) % MCV 71.1 L (80-96) fL MCH 21.7 L (27.7-33.6) pg MCHC 30.5 L (32.2-35.4) g/dL RDW 21.0 H (11.5-15.5) % Plt Count 386 H (125-369) X10(3)uL Sodium 136 (135-145) mmol/L Potassium 3.6 (3.5-5.3) mmol/L Chloride 106 (100-110) mmol/L Carbon Dioxide 19 L (23-29) mmol/L BUN 11 (8-23) mg/dL Creatinine 0.8 (0.6-1.3) mg/dL Est Cr Clr Drug Dosing 78.58 mL/min Estimated GFR (MDRD) > 60 (>60) BUN/Creatinine Ratio 13.8 (9-20) Glucose 117 H (80-116) mg/dL Calcium 8.4 L (8.6-10.2) mg/dL Med Orders - Current: Current Medications Enoxaparin Sodium (Lovenox) 30 mg SUBCUT Q24H [facility] Last Admin: 10/23/16 12:12 Dose: 30 mg Lactated Ringer's (Ringers, Lactated) 1,000 mls @ 75 mls/hr IV ASDIRECTED [facility] Last Admin: 10/24/16 02:06 Dose: 75 mls/hr Promethazine HCl 25 mg/ Sodium (Chloride) 51 mls @ 200 mls/hr IV Q6H PRN PRN Reason: Nausea/Vomiting Last Admin: 10/24/16 06:18 Dose: 200 mls/hr Ketorolac Tromethamine (Toradol) 15 mg IVPUSH Q6H [facility] Stop: 10/25/16 15:20 Last Admin: 10/24/16 06:48 Dose: 15 mg Metoprolol Tartrate (Lopressor) 25 mg PO BID [facility] Last Admin: 10/24/16 08:39 Dose: 25 mg Morphine Sulfate (Morphine Garage Helper 30 Mg In 30 Ml) 0 mg IV ASDIRECTED PRN; Protocol PRN Reason: Pain (severe 7-10) Last Admin: 10/23/16 01:59 Dose: 30 mg Naloxone HCl (Narcan) 0.4 mg IVPUSH Q2M PRN PRN Reason: Respiratory Distress Pantoprazole Sodium (Protonix Iv) 40 mg IVPUSH DAILY@1600 [facility] Last Admin: 10/23/16 15:54 Dose: 40 mg Sodium Chloride (Saline Flush) 10 ml FLUSH ASDIRECTED PRN PRN Reason: Keep Vein Open Last Admin: 10/22/16 12:18 Dose: 10 ml Discontinued Medications Lactated Ringer's (Ringers, Lactated) 1,000 mls @ 125 mls/hr IV ASDIRECTED [facility] Last Admin: 10/20/16 12:10 Dose: 125 mls/hr Cefoxitin Sodium 2 gm/ Sodium (Chloride) 100 mls @ 200 mls/hr IV ONETIME ONE Stop: 10/20/16 12:59 Last Admin: 10/20/16 12:20 Dose: 200 mls/hr Cefoxitin Sodium 1 gm/ Sodium (Chloride) 50 mls @ 100 mls/hr IV Q6H [facility] Stop: 10/22/16 07:29 Last Admin: 10/22/16 06:12 Dose: 100 mls/hr Iopamidol (Isovue-370 (76%)) 150 ml IV ONETIME ONE Stop: 10/24/16 09:40 Last Admin: 10/24/16 10:12 Dose: 150 ml Morphine Sulfate (Morphine) 2 mg IVPUSH Q3M PRN PRN Reason: Abdominal Pain Last Admin: 10/20/16 16:22 Dose: 2 mg - Exam Wound/Incisions: Healing Well General: Alert, Severe Distress Lungs: Clear to Auscultation, Normal Respiratory Effort GI/Abdominal Exam: Distended, Rebound, Tender - Problem List Review Problem List Initiated/Reviewed/Updated: Yes - My Orders Last 24 Hours: Medication Orders Enoxaparin Sodium (Lovenox) 30 mg SUBCUT Q24H [facility] Last Admin: 10/23/16 12:12 Dose: 30 mg Admin: 10/22/16 12:10 Dose: 30 mg Admin: 10/21/16 12:48 Dose: 30 mg Lactated Ringer's (Ringers, Lactated) 1,000 mls @ 75 mls/hr IV ASDIRECTED [facility] Last Admin: 10/24/16 02:06 Dose: 75 mls/hr Infusion: 10/24/16 02:05 Dose: 75 mls/hr Infusion: 10/23/16 20:29 Dose: 75 mls/hr Admin: 10/23/16 15:50 Dose: 125 mls/hr Infusion: 10/23/16 07:21 Dose: 125 mls/hr Admin: 10/22/16 23:21 Dose: 125 mls/hr Infusion: 10/22/16 23:06 Dose: 125 mls/hr Admin: 10/22/16 15:06 Dose: 125 mls/hr Infusion: 10/22/16 14:12 Dose: 125 mls/hr Admin: 10/22/16 06:12 Dose: 125 mls/hr Infusion: 10/22/16 05:54 Dose: 125 mls/hr Admin: 10/21/16 21:54 Dose: 125 mls/hr Infusion: 10/21/16 20:49 Dose: 125 mls/hr Admin: 10/21/16 12:49 Dose: 125 mls/hr Infusion: 10/21/16 11:56 Dose: 125 mls/hr Admin: 10/21/16 03:56 Dose: 125 mls/hr Promethazine HCl 25 mg/ Sodium (Chloride) 51 mls @ 200 mls/hr IV Q6H PRN PRN Reason: Nausea/Vomiting Last Admin: 10/24/16 06:18 Dose: 200 mls/hr Admin: 10/21/16 11:33 Dose: 200 mls/hr Ketorolac Tromethamine (Toradol) 15 mg IVPUSH Q6H [facility] Stop: 10/25/16 15:20 Last Admin: 10/24/16 06:48 Dose: 15 mg Admin: 10/24/16 01:28 Dose: 15 mg Admin: 10/23/16 19:43 Dose: 15 mg Admin: 10/23/16 16:31 Dose: Not Given Admin: 10/23/16 14:35 Dose: 15 mg Admin: 10/23/16 01:51 Dose: 15 mg Admin: 10/22/16 19:46 Dose: 15 mg Admin: 10/22/16 12:11 Dose: 15 mg Admin: 10/22/16 06:12 Dose: 15 mg Admin: 10/22/16 00:25 Dose: 15 mg Admin: 10/21/16 19:35 Dose: 15 mg Admin: 10/21/16 12:45 Dose: 15 mg Admin: 10/21/16 06:27 Dose: 15 mg Admin: 10/21/16 00:50 Dose: 15 mg Admin: 10/20/16 19:38 Dose: 15 mg Metoprolol Tartrate (Lopressor) 25 mg PO BID [facility] Last Admin: 10/24/16 08:39 Dose: 25 mg Admin: 10/23/16 21:08 Dose: 25 mg Admin: 10/23/16 09:45 Dose: 25 mg Admin: 10/22/16 21:05 Dose: 25 mg Admin: 10/22/16 09:27 Dose: 25 mg Admin: 10/21/16 21:53 Dose: 25 mg Admin: 10/21/16 10:08 Dose: 25 mg Morphine Sulfate (Morphine Garage Helper 30 Mg In 30 Ml) 0 mg IV ASDIRECTED PRN; Protocol PRN Reason: Pain (severe 7-10) Last Admin: 10/23/16 01:59 Dose: 30 mg Admin: 10/22/16 00:22 Dose: 30 mg Admin: 10/21/16 04:12 Dose: 30 mg Admin: 10/20/16 17:12 Dose: 30 mg Naloxone HCl (Narcan) 0.4 mg IVPUSH Q2M PRN PRN Reason: Respiratory Distress Pantoprazole Sodium (Protonix Iv) 40 mg IVPUSH DAILY@1600 [facility] Last Admin: 10/23/16 15:54 Dose: 40 mg Admin: 10/22/16 16:27 Dose: 40 mg Admin: 10/21/16 18:06 Dose: 40 mg Admin: 10/20/16 17:29 Dose: 40 mg Sodium Chloride (Saline Flush) 10 ml FLUSH ASDIRECTED PRN PRN Reason: Keep Vein Open Last Admin: 10/22/16 12:18 Dose: 10 ml - Assessment Assessment (Free Text/Narrative):: Severe abd pain CT scan shows moderate amount of free fluid and some air bubbles outside of the bowel - Plan Plan (Free Text/Narrative):: Will bring back to OR for probable anastomotoc leak discussed with patient and ; understand possible ostomy needed
[2016-10-24] MEDS ORDERED: metroNIDAZOLE/Normal Saline 100 ML IV ONE (11:45)
[2016-10-24] MEDS ORDERED: Ciprofloxacin in D5W 400 MG in Premix Bag 1 BAG IV ONE ×2 (11:45)
--- NOTE | 2016-10-24 13:30 | PCM.OPNOTE ---
- General Post-Op/Procedure Note Date of Surgery/Procedure: 10/24/16 Operative Procedure(s): Expl Lap, Repair Anast Leak; Diverting loop ileostomy Findings: Small Anast Leak Pre Op Diagnosis: Abd Pain Post-Op Diagnosis: Same Anesthesia Technique: General ET Tube Primary Surgeon: Blake Johnson Anesthesia Provider: Luis Pack Clinical Nursing Director: Bruce Fink Output, Urine Amount: 500 EBL in mLs: 10 Complications: None Condition: Good Free Text/Narrative:: Intake & Output 10/23/16 10/24/16 10/24/16 22:59 06:59 14:59 Intake Total 918 705 Output Total 500 Balance 918 205
[2016-10-24] MEDS ORDERED: fentaNYL 100 MCG/2 ML SDV IVPUSH PRN (13:38)
[2016-10-24] MEDS ORDERED: Naloxone 0.4 MG/ML SDV IVPUSH PRN (13:38)
[2016-10-24] MEDS ORDERED: Morphine 2 MG/ML Syringe IVPUSH PRN ×2 (13:38)
[2016-10-24] MEDS ORDERED: Ondansetron 4 MG/2 ML SDV IVPUSH PRN (13:38)
[2016-10-24] MEDS ORDERED: Lactated Ringers 1,000 ML IV SCH (13:45)
[2016-10-24] MEDS: Morphine PF 30 MG/30 ML PCA Vial IV PRN (14:45)
[2016-10-24] MEDS: Enoxaparin 30 MG/0.3 ML Syringe SUBCUT SCH (14:56)
[2016-10-24] MEDS: Pantoprazole 40 MG Vial IVPUSH SCH (16:54)
[2016-10-24] MEDS: metroNIDAZOLE/Normal Saline 500 MG in Premix Bag 1 BAG IV SCH (20:25)
[2016-10-24] MEDS ORDERED: Ciprofloxacin in D5W 400 MG in Premix Bag 1 BAG IV SCH ×2 (23:45)
[2016-10-25] MEDS: Ciprofloxacin in D5W 400 MG in Premix Bag 1 BAG IV SCH ×4 (00:20→13:24)
[2016-10-25] MEDS: Lactated Ringers 1,000 ML IV SCH ×3 (01:28→23:35)
[2016-10-25] MEDS: Ketorolac 15 MG/ML SDV IVPUSH SCH ×3 (01:30→13:19)
[2016-10-25] MEDS: metroNIDAZOLE/Normal Saline 500 MG in Premix Bag 1 BAG IV SCH ×3 (04:16→20:16)
[2016-10-25] MEDS: Morphine PF 30 MG/30 ML PCA Vial IV PRN (09:47)
[2016-10-25] MEDS: Enoxaparin 30 MG/0.3 ML Syringe SUBCUT SCH (12:14)
--- NOTE | 2016-10-25 13:59 | PCM.SURGPN ---
- General Info Date of Service: 10/25/16 POD#: 5 Functional Status: Reports: Pain Controlled - Review of Systems General: Reports: No Symptoms, Weakness Pulmonary: Reports: No Symptoms Cardiovascular: Reports: No Symptoms Gastrointestinal: Reports: No Symptoms, Abdominal Pain (much better) - Patient Data Vitals - Most Recent: Last Vital Signs Temp 98.2 F 10/25/16 08:00 Pulse 82 10/25/16 10:20 Resp 16 10/25/16 08:00 BP 129/51 L 10/25/16 08:00 Pulse Ox 93 L 10/25/16 10:20 Weight - Most Recent: 133.764 kg I&O - Last 24 Hours: Intake & Output 10/24/16 10/25/16 10/25/16 22:59 06:59 14:59 Intake Total 780 1050 Output Total 440 330 175 Balance 340 720 -175 Lab Results Last 24 Hrs: Laboratory Results - last 24 hr 10/25/16 10/25/16 Range/Units 05:45 05:45 WBC 9.8 (4.5-12.0) X10-3/uL RBC 3.89 L (4.30-5.75) x10(6)uL Hgb 8.6 L (11.5-15.5) g/dL Hct 27.7 L (30.0-51.3) % MCV 71.3 L (80-96) fL MCH 22.0 L (27.7-33.6) pg MCHC 30.9 L (32.2-35.4) g/dL RDW 20.7 H (11.5-15.5) % Plt Count 371 H (125-369) X10(3)uL Sodium 137 (135-145) mmol/L Potassium 4.0 (3.5-5.3) mmol/L Chloride 108 (100-110) mmol/L Carbon Dioxide 24 (23-29) mmol/L BUN 12 (8-23) mg/dL Creatinine 0.9 (0.6-1.3) mg/dL Est Cr Clr Drug Dosing 69.85 mL/min Estimated GFR (MDRD) > 60 (>60) BUN/Creatinine Ratio 13.3 (9-20) Glucose 137 H (80-116) mg/dL Calcium 8.2 L (8.6-10.2) mg/dL Total Bilirubin 1.6 H (0.1-1.3) mg/dL AST 18 D (5-27) IU/L ALT 14 D (14-26) IU/L Alkaline Phosphatase 39 L (56-112) IU/L Total Protein 5.1 L (6.0-8.0) g/dL Albumin 2.3 L (3.2-4.6) g/dL Globulin 2.8 g/dL Albumin/Globulin Ratio 0.8 Med Orders - Current: Current Medications Enoxaparin Sodium (Lovenox) 30 mg SUBCUT Q24H [facility] Last Admin: 10/25/16 12:14 Dose: 30 mg Promethazine HCl 25 mg/ Sodium (Chloride) 51 mls @ 200 mls/hr IV Q6H PRN PRN Reason: Nausea/Vomiting Last Admin: 10/24/16 18:12 Dose: 200 mls/hr Metronidazole 500 mg/ Premix 100 mls @ 100 mls/hr IV Q8H [facility] Last Admin: 10/25/16 12:07 Dose: 100 mls/hr Ciprofloxacin/Dextrose 400 mg/ (Premix) 200 mls @ 200 mls/hr IV Q12H [facility] Last Admin: 10/25/16 13:24 Dose: 200 mls/hr Lactated Ringer's (Ringers, Lactated) 1,000 mls @ 125 mls/hr IV ASDIRECTED [facility] Last Admin: 10/25/16 10:54 Dose: 125 mls/hr Ketorolac Tromethamine (Toradol) 15 mg IVPUSH Q6H [facility] Stop: 10/25/16 15:20 Last Admin: 10/25/16 13:19 Dose: 15 mg Metoprolol Tartrate (Lopressor) 25 mg PO BID [facility] Last Admin: 10/24/16 22:02 Dose: Not Given Morphine Sulfate (Morphine Yield Engineer 30 Mg In 30 Ml) 0 mg IV ASDIRECTED PRN; Protocol PRN Reason: Pain (severe 7-10) Last Admin: 10/25/16 09:47 Dose: 30 mg Naloxone HCl (Narcan) 0.4 mg IVPUSH Q2M PRN PRN Reason: Respiratory Distress Pantoprazole Sodium (Protonix Iv) 40 mg IVPUSH DAILY@1600 [facility] Last Admin: 10/24/16 16:54 Dose: 40 mg Sodium Chloride (Saline Flush) 10 ml FLUSH ASDIRECTED PRN PRN Reason: Keep Vein Open Last Admin: 10/22/16 12:18 Dose: 10 ml Discontinued Medications Fentanyl (Sublimaze) 50 mcg IVPUSH Q5M PRN PRN Reason: Pain (severe 7-10) Lactated Ringer's (Ringers, Lactated) 1,000 mls @ 125 mls/hr IV ASDIRECTED [facility] Last Admin: 10/20/16 12:10 Dose: 125 mls/hr Cefoxitin Sodium 2 gm/ Sodium (Chloride) 100 mls @ 200 mls/hr IV ONETIME ONE Stop: 10/20/16 12:59 Last Admin: 10/20/16 12:20 Dose: 200 mls/hr Lactated Ringer's (Ringers, Lactated) 1,000 mls @ 75 mls/hr IV ASDIRECTED [facility] Last Admin: 10/24/16 14:42 Dose: 75 mls/hr Cefoxitin Sodium 1 gm/ Sodium (Chloride) 50 mls @ 100 mls/hr IV Q6H [facility] Stop: 10/22/16 07:29 Last Admin: 10/22/16 06:12 Dose: 100 mls/hr Metronidazole (Flagyl 500 Mg In Ns 100 Ml) 100 mls @ 200 mls/hr IV ONETIME ONE Stop: 10/24/16 12:14 Last Admin: 10/24/16 11:51 Dose: 200 mls/hr Ciprofloxacin/Dextrose 400 mg/ (Premix) 200 mls @ 200 mls/hr IV ONETIME ONE Stop: 10/24/16 12:44 Last Admin: 10/24/16 11:46 Dose: 200 mls/hr Lactated Ringer's (Ringers, Lactated) 1,000 mls @ 0 mls/hr IV ASDIRECTED [facility] PRN Reason: KVO Ciprofloxacin/Dextrose 400 mg/ (Premix) 200 mls @ 200 mls/hr IV Q12H [facility] Iopamidol (Isovue-370 (76%)) 150 ml IV ONETIME ONE Stop: 10/24/16 09:40 Last Admin: 10/24/16 10:12 Dose: 150 ml Morphine Sulfate (Morphine Yield Engineer 30 Mg In 30 Ml) 0 mg IV ASDIRECTED PRN; Protocol PRN Reason: Pain (severe 7-10) Last Admin: 10/24/16 14:45 Dose: 30 mg Morphine Sulfate (Morphine) 2 mg IVPUSH Q3M PRN PRN Reason: Abdominal Pain Last Admin: 10/20/16 16:22 Dose: 2 mg Morphine Sulfate (Morphine) 1 mg IVPUSH Q5M PRN PRN Reason: Pain (moderate 4-6) Last Admin: 10/24/16 13:59 Dose: 1 mg Morphine Sulfate (Morphine) 2 mg IVPUSH ONETIME PRN PRN Reason: Pain (severe 7-10) Naloxone HCl (Narcan) 0.2 mg IVPUSH Q1M PRN PRN Reason: Respiratory Depression Ondansetron HCl (Zofran) 4 mg IVPUSH ONETIME PRN PRN Reason: Nausea/Vomiting - Exam Wound/Incisions: Dressing Dry and Intact General: Alert, Oriented Lungs: Clear to Auscultation, Normal Respiratory Effort, Decreased Breath Sounds Cardiovascular: Regular Rate, Regular Rhythm GI/Abdominal Exam: Soft, Other (ileostomy pink) Psy/Mental Status: Alert, Normal Affect, Normal Mood - Problem List Review Problem List Initiated/Reviewed/Updated: Yes - My Orders Last 24 Hours: Active Orders 24 hr Category Date Time Status Patient Status Manage Transfer [TRANSFER] Routine ADT 10/25/16 13:53 Ordered Communication Order [RC] ASDIRECTED Care 10/24/16 13:39 Active Communication Order [RC] ASDIRECTED Care 10/24/16 16:52 Active [place]kinson Catheter Insertion [Insert Urinary Catheter] [OM. Care 10/24/16 13:45 Ordered PC] Q24H Intake and Output [RC] 06,14,22 Care 10/24/16 16:51 Active NG [Gastrointestinal Tube Mgmt] [RC] QSHIFT Care 10/24/16 13:32 Inactive Notify Provider [RC] PRN Care 10/24/16 13:39 Active Oxygen Therapy [RC] ASDIRECTED Care 10/24/16 13:39 Active Urinary Catheter Assessment [RC] QSHIFT Care 10/24/16 13:33 Active Vital Signs [RC] PER UNIT ROUTINE Care 10/24/16 13:39 Active Ciprofloxacin in D5W [Cipro in D5W 400 MG/200 ML] 400 Med 10/25/16 00:01 Active mg Premix Bag 1 bag IV Q12H Lactated Ringers [Ringers, Lactated] 1,000 ml Med 10/24/16 16:50 Active IV ASDIRECTED Morphine PF [Morphine BRIDGE MANAGER 30 MG in 30 ML] Med 10/24/16 16:52 Active See Protocol IV ASDIRECTED PRN metroNIDAZOLE/Normal Saline [Flagyl 500 MG in NS 100 ML Med 10/24/16 20:00 Active ] 500 mg Premix Bag 1 bag IV Q8H Patient May [OM.PC] Click to Edit Ot 10/24/16 13:39 Ordered Medication Orders Enoxaparin Sodium (Lovenox) 30 mg SUBCUT Q24H [facility] Last Admin: 10/25/16 12:14 Dose: 30 mg Admin: 10/24/16 14:56 Dose: Admin: 10/23/16 12:12 Dose: 30 mg Admin: 10/22/16 12:10 Dose: 30 mg Admin: 10/21/16 12:48 Dose: 30 mg Promethazine HCl 25 mg/ Sodium (Chloride) 51 mls @ 200 mls/hr IV Q6H PRN PRN Reason: Nausea/Vomiting Last Admin: 10/24/16 18:12 Dose: 200 mls/hr Admin: 10/24/16 06:18 Dose: 200 mls/hr Admin: 10/21/16 11:33 Dose: 200 mls/hr Metronidazole 500 mg/ Premix 100 mls @ 100 mls/hr IV Q8H [facility] Last Admin: 10/25/16 12:07 Dose: 100 mls/hr Infusion: 10/25/16 05:16 Dose: 100 mls/hr Admin: 10/25/16 04:16 Dose: 100 mls/hr Infusion: 10/24/16 21:25 Dose: 100 mls/hr Admin: 10/24/16 20:25 Dose: 100 mls/hr Ciprofloxacin/Dextrose 400 mg/ (Premix) 200 mls @ 200 mls/hr IV Q12H [facility] Last Admin: 10/25/16 13:24 Dose: 200 mls/hr Infusion: 10/25/16 01:20 Dose: 200 mls/hr Admin: 10/25/16 00:20 Dose: 200 mls/hr Lactated Ringer's (Ringers, Lactated) 1,000 mls @ 125 mls/hr IV ASDIRECTED [facility] Last Admin: 10/25/16 10:54 Dose: 125 mls/hr Infusion: 10/25/16 09:28 Dose: 125 mls/hr Admin: 10/25/16 01:28 Dose: 125 mls/hr Ketorolac Tromethamine (Toradol) 15 mg IVPUSH Q6H [facility] Stop: 10/25/16 15:20 Last Admin: 10/25/16 13:19 Dose: 15 mg Admin: 10/25/16 06:49 Dose: 15 mg Admin: 10/25/16 01:30 Dose: 15 mg Admin: 10/24/16 18:10 Dose: 15 mg Admin: 10/24/16 12:56 Dose: 15 mg Admin: 10/24/16 06:48 Dose: 15 mg Admin: 10/24/16 01:28 Dose: 15 mg Admin: 10/23/16 19:43 Dose: 15 mg Admin: 10/23/16 16:31 Dose: Not Given Admin: 10/23/16 14:35 Dose: 15 mg Admin: 10/23/16 01:51 Dose: 15 mg Admin: 10/22/16 19:46 Dose: 15 mg Admin: 10/22/16 12:11 Dose: 15 mg Admin: 10/22/16 06:12 Dose: 15 mg Admin: 10/22/16 00:25 Dose: 15 mg Admin: 10/21/16 19:35 Dose: 15 mg Admin: 10/21/16 12:45 Dose: 15 mg Admin: 10/21/16 06:27 Dose: 15 mg Admin: 10/21/16 00:50 Dose: 15 mg Admin: 10/20/16 19:38 Dose: 15 mg Metoprolol Tartrate (Lopressor) 25 mg PO BID [facility] Last Admin: 10/24/16 22:02 Dose: Admin: 10/24/16 08:39 Dose: 25 mg Admin: 10/23/16 21:08 Dose: 25 mg Admin: 10/23/16 09:45 Dose: 25 mg Admin: 10/22/16 21:05 Dose: 25 mg Admin: 10/22/16 09:27 Dose: 25 mg Admin: 10/21/16 21:53 Dose: 25 mg Admin: 10/21/16 10:08 Dose: 25 mg Morphine Sulfate (Morphine Yield Engineer 30 Mg In 30 Ml) 0 mg IV ASDIRECTED PRN; Protocol PRN Reason: Pain (severe 7-10) Last Admin: 10/25/16 09:47 Dose: 30 mg Naloxone HCl (Narcan) 0.4 mg IVPUSH Q2M PRN PRN Reason: Respiratory Distress Pantoprazole Sodium (Protonix Iv) 40 mg IVPUSH DAILY@1600 [facility] Last Admin: 10/24/16 16:54 Dose: 40 mg Admin: 10/23/16 15:54 Dose: 40 mg Admin: 10/22/16 16:27 Dose: 40 mg Admin: 10/21/16 18:06 Dose: 40 mg Admin: 10/20/16 17:29 Dose: 40 mg Sodium Chloride (Saline Flush) 10 ml FLUSH ASDIRECTED PRN PRN Reason: Keep Vein Open Last Admin: 10/22/16 12:18 Dose: 10 ml - Assessment Assessment (Free Text/Narrative):: Doing well POD # 5/1 - Plan Plan (Free Text/Narrative):: Keep in ICU
[2016-10-25] MEDS: Pantoprazole 40 MG Vial IVPUSH SCH (16:45)
[2016-10-25] MEDS: Metoprolol Tartrate 25 MG Tab PO SCH ×2 (16:51→23:00)
[2016-10-25] MEDS ORDERED: Sodium Chloride 0.9% 500 ML IV ONE (18:28)
[2016-10-25] MEDS: diphenhydrAMINE 50 MG/ML SDV IVPUSH PRN (18:40)
[2016-10-25] MEDS ORDERED: Furosemide 20 MG/2 ML VIAL IVPUSH ONE (21:31)
[2016-10-26] MEDS: Ciprofloxacin in D5W 400 MG in Premix Bag 1 BAG IV SCH ×6 (00:11→23:43)
[2016-10-26] MEDS: Morphine PF 30 MG/30 ML PCA Vial IV PRN (04:06)
[2016-10-26] MEDS: metroNIDAZOLE/Normal Saline 500 MG in Premix Bag 1 BAG IV SCH ×3 (04:18→21:00)
[2016-10-26] MEDS: Metoprolol Tartrate 25 MG Tab PO SCH ×2 (08:58→21:30)
[2016-10-26] MEDS: diphenhydrAMINE 50 MG/ML SDV IVPUSH PRN (09:26)
--- NOTE | 2016-10-26 10:43 | PCM.SURGPN ---
- General Info Date of Service: 10/26/16 POD#: 6 Functional Status: Reports: Pain Controlled - Review of Systems General: Reports: No Symptoms Pulmonary: Reports: No Symptoms Cardiovascular: Reports: No Symptoms Gastrointestinal: Reports: No Symptoms, Other (minimal liquid ostomy output) Psychiatric: Reports: Confusion - Patient Data Vitals - Most Recent: Last Vital Signs Temp 98.0 F 10/26/16 08:00 Pulse 108 H 10/26/16 08:58 Resp 20 10/26/16 08:00 BP 152/106 H 10/26/16 08:58 Pulse Ox 94 L 10/26/16 08:00 Weight - Most Recent: 133.764 kg I&O - Last 24 Hours: Intake & Output 10/25/16 10/26/16 10/26/16 22:59 06:59 14:59 Intake Total 1132 952 Output Total 310 650 Balance 822 302 Med Orders - Current: Current Medications Diphenhydramine HCl (Benadryl) 25 mg IVPUSH Q6H PRN PRN Reason: Itching Last Admin: 10/26/16 09:26 Dose: 25 mg Enoxaparin Sodium (Lovenox) 30 mg SUBCUT Q24H [facility] Last Admin: 10/25/16 12:14 Dose: 30 mg Promethazine HCl 25 mg/ Sodium (Chloride) 51 mls @ 200 mls/hr IV Q6H PRN PRN Reason: Nausea/Vomiting Last Admin: 10/24/16 18:12 Dose: 200 mls/hr Metronidazole 500 mg/ Premix 100 mls @ 100 mls/hr IV Q8H [facility] Last Admin: 10/26/16 04:18 Dose: 100 mls/hr Ciprofloxacin/Dextrose 400 mg/ (Premix) 200 mls @ 200 mls/hr IV Q12H [facility] Last Admin: 10/26/16 00:11 Dose: 200 mls/hr Lactated Ringer's (Ringers, Lactated) 1,000 mls @ 100 mls/hr IV ASDIRECTED [facility] Last Admin: 10/25/16 23:35 Dose: 100 mls/hr Ketorolac Tromethamine (Toradol) 15 mg IVPUSH Q6H [facility] Stop: 10/29/16 10:34 Metoprolol Tartrate (Lopressor) 25 mg PO BID [facility] Last Admin: 10/26/16 08:58 Dose: 25 mg Morphine Sulfate (Morphine Continuing Education Dean 30 Mg In 30 Ml) 0 mg IV ASDIRECTED PRN; Protocol PRN Reason: Pain (severe 7-10) Last Admin: 10/26/16 04:06 Dose: 30 mg Naloxone HCl (Narcan) 0.4 mg IVPUSH Q2M PRN PRN Reason: Respiratory Distress Pantoprazole Sodium (Protonix Iv) 40 mg IVPUSH DAILY@1600 [facility] Last Admin: 10/25/16 16:45 Dose: 40 mg Sodium Chloride (Saline Flush) 10 ml FLUSH ASDIRECTED PRN PRN Reason: Keep Vein Open Last Admin: 10/22/16 12:18 Dose: 10 ml Discontinued Medications Fentanyl (Sublimaze) 50 mcg IVPUSH Q5M PRN PRN Reason: Pain (severe 7-10) Furosemide (Lasix) 10 mg IVPUSH NOW ONE Stop: 10/25/16 21:32 Last Admin: 10/25/16 21:43 Dose: 10 mg Lactated Ringer's (Ringers, Lactated) 1,000 mls @ 125 mls/hr IV ASDIRECTED [facility] Last Admin: 10/20/16 12:10 Dose: 125 mls/hr Cefoxitin Sodium 2 gm/ Sodium (Chloride) 100 mls @ 200 mls/hr IV ONETIME ONE Stop: 10/20/16 12:59 Last Admin: 10/20/16 12:20 Dose: 200 mls/hr Lactated Ringer's (Ringers, Lactated) 1,000 mls @ 75 mls/hr IV ASDIRECTED [facility] Last Admin: 10/24/16 14:42 Dose: 75 mls/hr Cefoxitin Sodium 1 gm/ Sodium (Chloride) 50 mls @ 100 mls/hr IV Q6H [facility] Stop: 10/22/16 07:29 Last Admin: 10/22/16 06:12 Dose: 100 mls/hr Metronidazole (Flagyl 500 Mg In Ns 100 Ml) 100 mls @ 200 mls/hr IV ONETIME ONE Stop: 10/24/16 12:14 Last Admin: 10/24/16 11:51 Dose: 200 mls/hr Ciprofloxacin/Dextrose 400 mg/ (Premix) 200 mls @ 200 mls/hr IV ONETIME ONE Stop: 10/24/16 12:44 Last Admin: 10/24/16 11:46 Dose: 200 mls/hr Lactated Ringer's (Ringers, Lactated) 1,000 mls @ 0 mls/hr IV ASDIRECTED [facility] PRN Reason: KVO Ciprofloxacin/Dextrose 400 mg/ (Premix) 200 mls @ 200 mls/hr IV Q12H [facility] Lactated Ringer's (Ringers, Lactated) 1,000 mls @ 125 mls/hr IV ASDIRECTED [facility] Last Admin: 10/25/16 10:54 Dose: 125 mls/hr Sodium Chloride (Normal Saline) 500 mls @ 500 mls/hr IV .BOLUS ONE Stop: 10/25/16 19:27 Last Admin: 10/25/16 18:35 Dose: 500 mls/hr Iopamidol (Isovue-370 (76%)) 150 ml IV ONETIME ONE Stop: 10/24/16 09:40 Last Admin: 10/24/16 10:12 Dose: 150 ml Ketorolac Tromethamine (Toradol) 15 mg IVPUSH Q6H [facility] Stop: 10/25/16 15:20 Last Admin: 10/25/16 13:19 Dose: 15 mg Morphine Sulfate (Morphine Continuing Education Dean 30 Mg In 30 Ml) 0 mg IV ASDIRECTED PRN; Protocol PRN Reason: Pain (severe 7-10) Last Admin: 10/24/16 14:45 Dose: 30 mg Morphine Sulfate (Morphine) 2 mg IVPUSH Q3M PRN PRN Reason: Abdominal Pain Last Admin: 10/20/16 16:22 Dose: 2 mg Morphine Sulfate (Morphine) 1 mg IVPUSH Q5M PRN PRN Reason: Pain (moderate 4-6) Last Admin: 10/24/16 13:59 Dose: 1 mg Morphine Sulfate (Morphine) 2 mg IVPUSH ONETIME PRN PRN Reason: Pain (severe 7-10) Naloxone HCl (Narcan) 0.2 mg IVPUSH Q1M PRN PRN Reason: Respiratory Depression Ondansetron HCl (Zofran) 4 mg IVPUSH ONETIME PRN PRN Reason: Nausea/Vomiting - Exam Wound/Incisions: Healing Well, Dressing Dry and Intact General: Alert, Cooperative Lungs: Clear to Auscultation, Normal Respiratory Effort Cardiovascular: Regular Rate GI/Abdominal Exam: Soft, Tender (mild diffuse), Other (scrotal edema) Psy/Mental Status: Labile Mood (was more angry and confused this am, better now) - Problem List Review Problem List Initiated/Reviewed/Updated: Yes - My Orders Last 24 Hours: Active Orders 24 hr Category Date Time Status Transfer Patient (Change bed) [ADT] Routine ADT 10/26/16 10:32 Ordered Daily Weight [Height and Weight] [RC] DAILY Care 10/26/16 06:00 Active BASIC METABOLIC PANEL,BMP [CHEM] Routine Lab 10/27/16 07:00 Ordered CBC W/O DIFF,HEMOGRAM [HEME] Routine Lab 10/27/16 07:00 Ordered Ketorolac [Toradol] Med 10/26/16 10:45 Ordered 15 mg IVPUSH Q6H Lactated Ringers [Ringers, Lactated] 1,000 ml Med 10/25/16 23:15 Active IV ASDIRECTED diphenhydrAMINE [Benadryl] Med 10/25/16 18:28 Active 25 mg IVPUSH Q6H PRN Medication Orders Diphenhydramine HCl (Benadryl) 25 mg IVPUSH Q6H PRN PRN Reason: Itching Last Admin: 10/26/16 09:26 Dose: 25 mg Admin: 10/25/16 18:40 Dose: 25 mg Enoxaparin Sodium (Lovenox) 30 mg SUBCUT Q24H [facility] Last Admin: 10/25/16 12:14 Dose: 30 mg Admin: 10/24/16 14:56 Dose: Admin: 10/23/16 12:12 Dose: 30 mg Admin: 10/22/16 12:10 Dose: 30 mg Admin: 10/21/16 12:48 Dose: 30 mg Promethazine HCl 25 mg/ Sodium (Chloride) 51 mls @ 200 mls/hr IV Q6H PRN PRN Reason: Nausea/Vomiting Last Admin: 10/24/16 18:12 Dose: 200 mls/hr Admin: 10/24/16 06:18 Dose: 200 mls/hr Admin: 10/21/16 11:33 Dose: 200 mls/hr Metronidazole 500 mg/ Premix 100 mls @ 100 mls/hr IV Q8H [facility] Last Admin: 10/26/16 04:18 Dose: 100 mls/hr Infusion: 10/25/16 21:16 Dose: 100 mls/hr Admin: 10/25/16 20:16 Dose: 100 mls/hr Infusion: 10/25/16 13:07 Dose: 100 mls/hr Admin: 10/25/16 12:07 Dose: 100 mls/hr Infusion: 10/25/16 05:16 Dose: 100 mls/hr Admin: 10/25/16 04:16 Dose: 100 mls/hr Infusion: 10/24/16 21:25 Dose: 100 mls/hr Admin: 10/24/16 20:25 Dose: 100 mls/hr Ciprofloxacin/Dextrose 400 mg/ (Premix) 200 mls @ 200 mls/hr IV Q12H [facility] Last Admin: 10/26/16 00:11 Dose: 200 mls/hr Infusion: 10/25/16 14:24 Dose: 200 mls/hr Admin: 10/25/16 13:24 Dose: 200 mls/hr Infusion: 10/25/16 01:20 Dose: 200 mls/hr Admin: 10/25/16 00:20 Dose: 200 mls/hr Lactated Ringer's (Ringers, Lactated) 1,000 mls @ 100 mls/hr IV ASDIRECTED [facility] Last Admin: 10/25/16 23:35 Dose: 100 mls/hr Ketorolac Tromethamine (Toradol) 15 mg IVPUSH Q6H [facility] Stop: 10/29/16 10:34 Metoprolol Tartrate (Lopressor) 25 mg PO BID [facility] Last Admin: 10/26/16 08:58 Dose: 25 mg Admin: 10/25/16 23:00 Dose: 25 mg Admin: 10/25/16 16:51 Dose: 25 mg Admin: 10/24/16 22:02 Dose: Admin: 10/24/16 08:39 Dose: 25 mg Admin: 10/23/16 21:08 Dose: 25 mg Admin: 10/23/16 09:45 Dose: 25 mg Admin: 10/22/16 21:05 Dose: 25 mg Admin: 10/22/16 09:27 Dose: 25 mg Admin: 10/21/16 21:53 Dose: 25 mg Admin: 10/21/16 10:08 Dose: 25 mg Morphine Sulfate (Morphine Continuing Education Dean 30 Mg In 30 Ml) 0 mg IV ASDIRECTED PRN; Protocol PRN Reason: Pain (severe 7-10) Last Admin: 10/26/16 04:06 Dose: 30 mg Admin: 10/25/16 09:47 Dose: 30 mg Naloxone HCl (Narcan) 0.4 mg IVPUSH Q2M PRN PRN Reason: Respiratory Distress Pantoprazole Sodium (Protonix Iv) 40 mg IVPUSH DAILY@1600 [facility] Last Admin: 10/25/16 16:45 Dose: 40 mg Admin: 10/24/16 16:54 Dose: 40 mg Admin: 10/23/16 15:54 Dose: 40 mg Admin: 10/22/16 16:27 Dose: 40 mg Admin: 10/21/16 18:06 Dose: 40 mg Admin: 10/20/16 17:29 Dose: 40 mg Sodium Chloride (Saline Flush) 10 ml FLUSH ASDIRECTED PRN PRN Reason: Keep Vein Open Last Admin: 10/22/16 12:18 Dose: 10 ml - Assessment Assessment (Free Text/Narrative):: Doing well POD #6 Some confusion - Plan Plan (Free Text/Narrative):: Await bowel function D/C 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
[2016-10-26] MEDS ORDERED: Furosemide 20 MG/2 ML VIAL IVPUSH ONE (10:46)
[2016-10-26] MEDS: Ketorolac 15 MG/ML SDV IVPUSH SCH ×3 (11:02→23:02)
[2016-10-26] MEDS: Lactated Ringers 1,000 ML IV SCH (12:28)
[2016-10-26] MEDS: Enoxaparin 30 MG/0.3 ML Syringe SUBCUT SCH (12:35)
[2016-10-26] MEDS: Promethazine 25 MG in Sodium Chloride 0.9% 50 ML IV PRN (13:42)
[2016-10-26] MEDS: Pantoprazole 40 MG Vial IVPUSH SCH (17:13)
[2016-10-27] MEDS: Lactated Ringers 1,000 ML IV SCH (01:56)
[2016-10-27] MEDS: metroNIDAZOLE/Normal Saline 500 MG in Premix Bag 1 BAG IV SCH ×3 (04:40→20:45)
[2016-10-27] MEDS: Ketorolac 15 MG/ML SDV IVPUSH SCH ×4 (05:06→22:33)
[2016-10-27] MEDS: Promethazine 25 MG in Sodium Chloride 0.9% 50 ML IV PRN (07:43)
--- NOTE | 2016-10-27 08:45 | PCM.SURGPN ---
- General Info Date of Service: 10/27/16 POD#: 7 Functional Status: Reports: Pain Controlled - Review of Systems General: Reports: No Symptoms Pulmonary: Reports: No Symptoms Cardiovascular: Reports: No Symptoms Gastrointestinal: Reports: Nausea, Other (liquid ostomy output) Neurological: Reports: Confusion (less today) - Patient Data Vitals - Most Recent: Last Vital Signs Temp 98.5 F 10/27/16 04:00 Pulse 87 10/27/16 04:00 Resp 20 10/27/16 04:00 BP 155/68 H 10/27/16 04:00 Pulse Ox 97 10/27/16 04:00 Weight - Most Recent: 134.399 kg I&O - Last 24 Hours: Intake & Output 10/26/16 10/27/16 10/27/16 22:59 06:59 14:59 Intake Total 926 1199 Output Total 210 260 Balance 716 939 Lab Results Last 24 Hrs: Laboratory Results - last 24 hr 10/27/16 10/27/16 Range/Units 06:25 06:25 WBC 9.9 (4.5-12.0) X10-3/uL RBC 3.39 L (4.30-5.75) x10(6)uL Hgb 7.5 L (11.5-15.5) g/dL Hct 24.4 L (30.0-51.3) % MCV 72.0 L (80-96) fL MCH 22.2 L (27.7-33.6) pg MCHC 30.9 L (32.2-35.4) g/dL RDW 21.1 H (11.5-15.5) % Plt Count 388 H (125-369) X10(3)uL Sodium 138 (135-145) mmol/L Potassium 3.4 L (3.5-5.3) mmol/L Chloride 107 (100-110) mmol/L Carbon Dioxide 23 (23-29) mmol/L BUN 15 (8-23) mg/dL Creatinine 0.8 (0.6-1.3) mg/dL Est Cr Clr Drug Dosing 78.58 mL/min Estimated GFR (MDRD) > 60 (>60) BUN/Creatinine Ratio 18.8 (9-20) Glucose 111 (80-116) mg/dL Calcium 8.2 L (8.6-10.2) mg/dL Med Orders - Current: Current Medications Diphenhydramine HCl (Benadryl) 25 mg IVPUSH Q6H PRN PRN Reason: Itching Last Admin: 10/26/16 09:26 Dose: 25 mg Enoxaparin Sodium (Lovenox) 30 mg SUBCUT Q24H [facility] Last Admin: 10/26/16 12:35 Dose: 30 mg Promethazine HCl 25 mg/ Sodium (Chloride) 51 mls @ 200 mls/hr IV Q6H PRN PRN Reason: Nausea/Vomiting Last Admin: 10/27/16 07:43 Dose: 200 mls/hr Metronidazole 500 mg/ Premix 100 mls @ 100 mls/hr IV Q8H [facility] Last Admin: 10/27/16 04:40 Dose: 100 mls/hr Ciprofloxacin/Dextrose 400 mg/ (Premix) 200 mls @ 200 mls/hr IV Q12H [facility] Last Admin: 10/26/16 23:43 Dose: 200 mls/hr Lactated Ringer's (Ringers, Lactated) 1,000 mls @ 100 mls/hr IV ASDIRECTED [facility] Last Admin: 10/27/16 01:56 Dose: 100 mls/hr Ketorolac Tromethamine (Toradol) 15 mg IVPUSH Q6H [facility] Stop: 10/29/16 10:34 Last Admin: 10/27/16 05:06 Dose: 15 mg Metoclopramide HCl (Reglan) 10 mg IV Q6H [facility] Stop: 10/28/16 02:46 Metoprolol Tartrate (Lopressor) 25 mg PO BID [facility] Last Admin: 10/26/16 21:30 Dose: 25 mg Morphine Sulfate (Morphine Income Tax Analyst 30 Mg In 30 Ml) 0 mg IV ASDIRECTED PRN; Protocol PRN Reason: Pain (severe 7-10) Last Admin: 10/26/16 04:06 Dose: 30 mg Naloxone HCl (Narcan) 0.4 mg IVPUSH Q2M PRN PRN Reason: Respiratory Distress Pantoprazole Sodium (Protonix Iv) 40 mg IVPUSH DAILY@1600 [facility] Last Admin: 10/26/16 17:13 Dose: 40 mg Sodium Chloride (Saline Flush) 10 ml FLUSH ASDIRECTED PRN PRN Reason: Keep Vein Open Last Admin: 10/22/16 12:18 Dose: 10 ml Discontinued Medications Fentanyl (Sublimaze) 50 mcg IVPUSH Q5M PRN PRN Reason: Pain (severe 7-10) Furosemide (Lasix) 10 mg IVPUSH NOW ONE Stop: 10/25/16 21:32 Last Admin: 10/25/16 21:43 Dose: 10 mg Furosemide (Lasix) 10 mg IVPUSH NOW ONE Stop: 10/26/16 10:47 Last Admin: 10/26/16 11:06 Dose: 10 mg Lactated Ringer's (Ringers, Lactated) 1,000 mls @ 125 mls/hr IV ASDIRECTED [facility] Last Admin: 10/20/16 12:10 Dose: 125 mls/hr Cefoxitin Sodium 2 gm/ Sodium (Chloride) 100 mls @ 200 mls/hr IV ONETIME ONE Stop: 10/20/16 12:59 Last Admin: 10/20/16 12:20 Dose: 200 mls/hr Lactated Ringer's (Ringers, Lactated) 1,000 mls @ 75 mls/hr IV ASDIRECTED [facility] Last Admin: 10/24/16 14:42 Dose: 75 mls/hr Cefoxitin Sodium 1 gm/ Sodium (Chloride) 50 mls @ 100 mls/hr IV Q6H [facility] Stop: 10/22/16 07:29 Last Admin: 10/22/16 06:12 Dose: 100 mls/hr Metronidazole (Flagyl 500 Mg In Ns 100 Ml) 100 mls @ 200 mls/hr IV ONETIME ONE Stop: 10/24/16 12:14 Last Admin: 10/24/16 11:51 Dose: 200 mls/hr Ciprofloxacin/Dextrose 400 mg/ (Premix) 200 mls @ 200 mls/hr IV ONETIME ONE Stop: 10/24/16 12:44 Last Admin: 10/24/16 11:46 Dose: 200 mls/hr Lactated Ringer's (Ringers, Lactated) 1,000 mls @ 0 mls/hr IV ASDIRECTED [facility] PRN Reason: KVO Ciprofloxacin/Dextrose 400 mg/ (Premix) 200 mls @ 200 mls/hr IV Q12H [facility] Lactated Ringer's (Ringers, Lactated) 1,000 mls @ 125 mls/hr IV ASDIRECTED [facility] Last Admin: 10/25/16 10:54 Dose: 125 mls/hr Sodium Chloride (Normal Saline) 500 mls @ 500 mls/hr IV .BOLUS ONE Stop: 10/25/16 19:27 Last Admin: 10/25/16 18:35 Dose: 500 mls/hr Iopamidol (Isovue-370 (76%)) 150 ml IV ONETIME ONE Stop: 10/24/16 09:40 Last Admin: 10/24/16 10:12 Dose: 150 ml Ketorolac Tromethamine (Toradol) 15 mg IVPUSH Q6H [facility] Stop: 10/25/16 15:20 Last Admin: 10/25/16 13:19 Dose: 15 mg Morphine Sulfate (Morphine Income Tax Analyst 30 Mg In 30 Ml) 0 mg IV ASDIRECTED PRN; Protocol PRN Reason: Pain (severe 7-10) Last Admin: 10/24/16 14:45 Dose: 30 mg Morphine Sulfate (Morphine) 2 mg IVPUSH Q3M PRN PRN Reason: Abdominal Pain Last Admin: 10/20/16 16:22 Dose: 2 mg Morphine Sulfate (Morphine) 1 mg IVPUSH Q5M PRN PRN Reason: Pain (moderate 4-6) Last Admin: 10/24/16 13:59 Dose: 1 mg Morphine Sulfate (Morphine) 2 mg IVPUSH ONETIME PRN PRN Reason: Pain (severe 7-10) Naloxone HCl (Narcan) 0.2 mg IVPUSH Q1M PRN PRN Reason: Respiratory Depression Ondansetron HCl (Zofran) 4 mg IVPUSH ONETIME PRN PRN Reason: Nausea/Vomiting - Exam Wound/Incisions: Healing Well General: Alert, Cooperative, No Acute Distress Lungs: Clear to Auscultation, Normal Respiratory Effort GI/Abdominal Exam: Distended, Other (ostomy pink) - Problem List Review Problem List Initiated/Reviewed/Updated: Yes - My Orders Last 24 Hours: Active Orders 24 hr Category Date Time Status Transfer Patient (Change bed) [ADT] Routine ADT 10/26/16 10:32 Ordered Ketorolac [Toradol] Med 10/26/16 10:45 Active 15 mg IVPUSH Q6H Metoclopramide [Reglan] Med 10/27/16 08:45 Ordered 10 mg IV Q6H Medication Orders Diphenhydramine HCl (Benadryl) 25 mg IVPUSH Q6H PRN PRN Reason: Itching Last Admin: 10/26/16 09:26 Dose: 25 mg Admin: 10/25/16 18:40 Dose: 25 mg Enoxaparin Sodium (Lovenox) 30 mg SUBCUT Q24H [facility] Last Admin: 10/26/16 12:35 Dose: 30 mg Admin: 10/25/16 12:14 Dose: 30 mg Admin: 10/24/16 14:56 Dose: Admin: 10/23/16 12:12 Dose: 30 mg Admin: 10/22/16 12:10 Dose: 30 mg Admin: 10/21/16 12:48 Dose: 30 mg Promethazine HCl 25 mg/ Sodium (Chloride) 51 mls @ 200 mls/hr IV Q6H PRN PRN Reason: Nausea/Vomiting Last Admin: 10/27/16 07:43 Dose: 200 mls/hr Admin: 10/26/16 13:42 Dose: 200 mls/hr Admin: 10/24/16 18:12 Dose: 200 mls/hr Admin: 10/24/16 06:18 Dose: 200 mls/hr Admin: 10/21/16 11:33 Dose: 200 mls/hr Metronidazole 500 mg/ Premix 100 mls @ 100 mls/hr IV Q8H [facility] Last Admin: 10/27/16 04:40 Dose: 100 mls/hr Infusion: 10/26/16 22:00 Dose: 100 mls/hr Admin: 10/26/16 21:00 Dose: 100 mls/hr Infusion: 10/26/16 12:10 Dose: 100 mls/hr Admin: 10/26/16 11:10 Dose: 100 mls/hr Infusion: 10/26/16 05:18 Dose: 100 mls/hr Admin: 10/26/16 04:18 Dose: 100 mls/hr Infusion: 10/25/16 21:16 Dose: 100 mls/hr Admin: 10/25/16 20:16 Dose: 100 mls/hr Infusion: 10/25/16 13:07 Dose: 100 mls/hr Admin: 10/25/16 12:07 Dose: 100 mls/hr Infusion: 10/25/16 05:16 Dose: 100 mls/hr Admin: 10/25/16 04:16 Dose: 100 mls/hr Infusion: 10/24/16 21:25 Dose: 100 mls/hr Admin: 10/24/16 20:25 Dose: 100 mls/hr Ciprofloxacin/Dextrose 400 mg/ (Premix) 200 mls @ 200 mls/hr IV Q12H [facility] Last Admin: 10/26/16 23:43 Dose: 200 mls/hr Infusion: 10/26/16 13:28 Dose: 200 mls/hr Admin: 10/26/16 12:28 Dose: 200 mls/hr Infusion: 10/26/16 01:11 Dose: 200 mls/hr Admin: 10/26/16 00:11 Dose: 200 mls/hr Infusion: 10/25/16 14:24 Dose: 200 mls/hr Admin: 10/25/16 13:24 Dose: 200 mls/hr Infusion: 10/25/16 01:20 Dose: 200 mls/hr Admin: 10/25/16 00:20 Dose: 200 mls/hr Lactated Ringer's (Ringers, Lactated) 1,000 mls @ 100 mls/hr IV ASDIRECTED [facility] Last Admin: 10/27/16 01:56 Dose: 100 mls/hr Infusion: 10/26/16 22:28 Dose: 100 mls/hr Admin: 10/26/16 12:28 Dose: 100 mls/hr Infusion: 10/26/16 09:35 Dose: 100 mls/hr Admin: 10/25/16 23:35 Dose: 100 mls/hr Ketorolac Tromethamine (Toradol) 15 mg IVPUSH Q6H [facility] Stop: 10/29/16 10:34 Last Admin: 10/27/16 05:06 Dose: 15 mg Admin: 10/26/16 23:02 Dose: 15 mg Admin: 10/26/16 17:19 Dose: 15 mg Admin: 10/26/16 11:02 Dose: 15 mg Metoclopramide HCl (Reglan) 10 mg IV Q6H [facility] Stop: 10/28/16 02:46 Metoprolol Tartrate (Lopressor) 25 mg PO BID [facility] Last Admin: 10/26/16 21:30 Dose: 25 mg Admin: 10/26/16 08:58 Dose: 25 mg Admin: 10/25/16 23:00 Dose: 25 mg Admin: 10/25/16 16:51 Dose: 25 mg Admin: 10/24/16 22:02 Dose: Admin: 10/24/16 08:39 Dose: 25 mg Admin: 10/23/16 21:08 Dose: 25 mg Admin: 10/23/16 09:45 Dose: 25 mg Admin: 10/22/16 21:05 Dose: 25 mg Admin: 10/22/16 09:27 Dose: 25 mg Admin: 10/21/16 21:53 Dose: 25 mg Admin: 10/21/16 10:08 Dose: 25 mg Morphine Sulfate (Morphine Income Tax Analyst 30 Mg In 30 Ml) 0 mg IV ASDIRECTED PRN; Protocol PRN Reason: Pain (severe 7-10) Last Admin: 10/26/16 04:06 Dose: 30 mg Admin: 10/25/16 09:47 Dose: 30 mg Naloxone HCl (Narcan) 0.4 mg IVPUSH Q2M PRN PRN Reason: Respiratory Distress Pantoprazole Sodium (Protonix Iv) 40 mg IVPUSH DAILY@1600 [facility] Last Admin: 10/26/16 17:13 Dose: 40 mg Admin: 10/25/16 16:45 Dose: 40 mg Admin: 10/24/16 16:54 Dose: 40 mg Admin: 10/23/16 15:54 Dose: 40 mg Admin: 10/22/16 16:27 Dose: 40 mg Admin: 10/21/16 18:06 Dose: 40 mg Admin: 10/20/16 17:29 Dose: 40 mg Sodium Chloride (Saline Flush) 10 ml FLUSH ASDIRECTED PRN PRN Reason: Keep Vein Open Last Admin: 10/22/16 12:18 Dose: 10 ml - Assessment Assessment (Free Text/Narrative):: Post op ileus - Plan Plan (Free Text/Narrative):: Await bowel function add K to IV
--- NOTE | 2016-10-27 09:07 | OR ---
DATE OF OPERATION: 10/24/2016 SURGEON: lBake Johnson MD SUPERVISOR TUNNEL HEADING: Dr. Bruce Fink was present and necessary for assistance and retraction. PREOPERATIVE DIAGNOSIS: Severe abdominal pain. POSTOPERATIVE DIAGNOSIS: Ileocolonic anastomotic leak. PROCEDURE: 1. Exploratory laparotomy with repair of anastomotic leak. 2. Creation of diverting loop ileostomy. ANESTHESIA: General. HISTORY: This patient underwent a right colectomy for colon cancer 4 days ago and had been doing well. 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 This morning, his abdominal pain became severe. He was afebrile and not tachycardic and WBC was normal. I had a CT scan of the abdomen and pelvis obtained which shows moderate amount of ascites fluid, and some air bubbles. This is suspicious for anastomotic leak. I met with the patient and his and recommended he return to the operating room for exploratory laparotomy to inspect the anastomosis and to possibly create an ostomy if one was found. Informed consent was obtained. DESCRIPTION OF PROCEDURE: The patient was brought to the operating room, where general endotracheal anesthesia was administered. A Atkinson catheter was inserted and NG tube placed during the procedure. Abdomen was prepped with ChloraPrep and draped sterilely. Adolfo were taken out and midline fascia opened by removing of the Prolene sutures. There was a minimal amount of clear reddish ascites fluid and no evidence of peritonitis. The colon and small bowel were mobilized so the anastomosis could be inspected. Initially, this looked good and then a few small air bubbles were seen coming from the TA staple line where the colotomy was closed. There was some induration around this area. I elected to sharply excise this portion of the staple line and the rest of the anastomosis looked good. This was also visualized from the inside. The defect was then closed with a single layer of interrupted 3-0 Vicryl sutures including the seromuscular and mucosal layers. This went well. I decided that a diverting loop ileostomy would be best to ensure healing. A location was chosen in the right lateral abdomen and a hole made in the skin and extended down to the rectus fascia. Rectus fascia was incised and peritoneal cavity entered. Posterior rectus fascia was also incised to allow the hole to be dilated to 3 fingerbreadths. Terminal ileum was chosen approximately 25 to 30 cm proximal to the anastomosis and brought out. This was kept in place with a [place] clamp while the peritoneal cavity was irrigated with 1 L of warm saline. Return was clear and hemostasis was assured. Midline fascia was closed with running #2 Prolene with a few interrupted #1 PDS internal retention sutures. Subcutaneous tissue was irrigated and skin closed with adolfo. Next, the loop ileostomy was matured by incising the antimesenteric surface of the bowel and securing this to the skin circumferentially in each corner with the skin mucosa and serosa to create an everted edge. A bridge had been placed prior to maturing and secured to the skin with 2-0 Ethilon. An ostomy appliance was placed. A sterile dressing was applied. The patient tolerated the procedure well. Blood loss less than 20 mL. Urine output was good during the procedure with approximately 500 mL of clear yellow urine. There was approximately 200 mL of dark greenish NG contents removed. The patient returned to recovery in stable condition. /[id number] MARQUES/ELEAZAR
[2016-10-27] MEDS: Dextrose 5%-Lact Ringers w/KCl 1,000 ML IV SCH (09:27)
[2016-10-27] MEDS: Morphine PF 30 MG/30 ML PCA Vial IV PRN (10:10)
[2016-10-27] MEDS: Metoprolol Tartrate 25 MG Tab PO SCH ×2 (10:36→20:49)
[2016-10-27] MEDS: Metoclopramide 10 MG/2 ML SDV IV SCH ×3 (10:36→20:50)
[2016-10-27] MEDS: Ciprofloxacin in D5W 400 MG in Premix Bag 1 BAG IV SCH ×2 (13:34)
[2016-10-27] MEDS: Enoxaparin 30 MG/0.3 ML Syringe SUBCUT SCH (15:22)
[2016-10-27] MEDS: Pantoprazole 40 MG Vial IVPUSH SCH (16:42)
[2016-10-28] MEDS: Dextrose 5%-Lact Ringers w/KCl 1,000 ML IV SCH ×3 (00:07→21:40)
[2016-10-28] MEDS: Ciprofloxacin in D5W 400 MG in Premix Bag 1 BAG IV SCH ×2 (00:18)
[2016-10-28] MEDS: metroNIDAZOLE/Normal Saline 500 MG in Premix Bag 1 BAG IV SCH (03:20)
[2016-10-28] MEDS: Metoclopramide 10 MG/2 ML SDV IV SCH (03:20)
[2016-10-28] MEDS: Ketorolac 15 MG/ML SDV IVPUSH SCH ×4 (04:28→22:24)
[2016-10-28] MEDS: Metoprolol Tartrate 25 MG Tab PO SCH ×2 (08:16→20:00)
--- NOTE | 2016-10-28 10:11 | PCM.SURGPN ---
- General Info Date of Service: 10/28/16 POD#: 8 Functional Status: Reports: Pain Controlled, Ambulating - Review of Systems General: Reports: No Symptoms Pulmonary: Reports: No Symptoms Cardiovascular: Reports: No Symptoms Gastrointestinal: Reports: No Symptoms, Other (ostomy with much liquid output) - Patient Data Vitals - Most Recent: Last Vital Signs Temp 97.7 F 10/28/16 08:10 Pulse 81 10/28/16 08:16 Resp 24 H 10/28/16 08:10 BP 143/79 H 10/28/16 08:16 Pulse Ox 98 10/28/16 08:10 Weight - Most Recent: 135.261 kg I&O - Last 24 Hours: Intake & Output 10/27/16 10/28/16 10/28/16 22:59 06:59 14:59 Intake Total 925 705 Output Total 400 700 Balance 525 5 Med Orders - Current: Current Medications Diphenhydramine HCl (Benadryl) 25 mg IVPUSH Q6H PRN PRN Reason: Itching Last Admin: 10/26/16 09:26 Dose: 25 mg Enoxaparin Sodium (Lovenox) 30 mg SUBCUT Q24H [facility] Last Admin: 10/27/16 15:22 Dose: 30 mg Potassium Cl/Dextrose/Lact Ringer's (D5 Lr With 20 Meq Kcl) 1,000 mls @ 100 mls /hr IV Q10H [facility] Last Admin: 10/28/16 00:07 Dose: 100 mls/hr Ketorolac Tromethamine (Toradol) 15 mg IVPUSH Q6H [facility] Stop: 10/29/16 10:34 Last Admin: 10/28/16 04:28 Dose: 15 mg Metoprolol Tartrate (Lopressor) 25 mg PO BID [facility] Last Admin: 10/28/16 08:16 Dose: 25 mg Morphine Sulfate (Morphine Crimp Setter 30 Mg In 30 Ml) 0 mg IV ASDIRECTED PRN; Protocol PRN Reason: Pain (severe 7-10) Last Admin: 10/27/16 10:10 Dose: 30 mg Naloxone HCl (Narcan) 0.4 mg IVPUSH Q2M PRN PRN Reason: Respiratory Distress Pantoprazole Sodium (Protonix Iv) 40 mg IVPUSH DAILY@1600 [facility] Last Admin: 10/27/16 16:42 Dose: 40 mg Sodium Chloride (Saline Flush) 10 ml FLUSH ASDIRECTED PRN PRN Reason: Keep Vein Open Last Admin: 10/22/16 12:18 Dose: 10 ml Discontinued Medications Fentanyl (Sublimaze) 50 mcg IVPUSH Q5M PRN PRN Reason: Pain (severe 7-10) Fentanyl (Sublimaze) 200 mcg IV .STK-MED ONE Stop: 10/24/16 11:01 Furosemide (Lasix) 10 mg IVPUSH NOW ONE Stop: 10/25/16 21:32 Last Admin: 10/25/16 21:43 Dose: 10 mg Furosemide (Lasix) 10 mg IVPUSH NOW ONE Stop: 10/26/16 10:47 Last Admin: 10/26/16 11:06 Dose: 10 mg Glycopyrrolate (Robinul) 0.6 mg IV .STK-MED ONE Stop: 10/24/16 11:01 Lactated Ringer's (Ringers, Lactated) 1,000 mls @ 125 mls/hr IV ASDIRECTED [facility] Last Admin: 10/20/16 12:10 Dose: 125 mls/hr Cefoxitin Sodium 2 gm/ Sodium (Chloride) 100 mls @ 200 mls/hr IV ONETIME ONE Stop: 10/20/16 12:59 Last Admin: 10/20/16 12:20 Dose: 200 mls/hr Lactated Ringer's (Ringers, Lactated) 1,000 mls @ 75 mls/hr IV ASDIRECTED [facility] Last Admin: 10/24/16 14:42 Dose: 75 mls/hr Cefoxitin Sodium 1 gm/ Sodium (Chloride) 50 mls @ 100 mls/hr IV Q6H [facility] Stop: 10/22/16 07:29 Last Admin: 10/22/16 06:12 Dose: 100 mls/hr Promethazine HCl 25 mg/ Sodium (Chloride) 51 mls @ 200 mls/hr IV Q6H PRN PRN Reason: Nausea/Vomiting Last Admin: 10/27/16 07:43 Dose: 200 mls/hr Metronidazole (Flagyl 500 Mg In Ns 100 Ml) 100 mls @ 200 mls/hr IV ONETIME ONE Stop: 10/24/16 12:14 Last Admin: 10/24/16 11:51 Dose: 200 mls/hr Ciprofloxacin/Dextrose 400 mg/ (Premix) 200 mls @ 200 mls/hr IV ONETIME ONE Stop: 10/24/16 12:44 Last Admin: 10/24/16 11:46 Dose: 200 mls/hr Lactated Ringer's (Ringers, Lactated) 1,000 mls @ 0 mls/hr IV ASDIRECTED [facility] PRN Reason: KVO Ciprofloxacin/Dextrose 400 mg/ (Premix) 200 mls @ 200 mls/hr IV Q12H [facility] Metronidazole 500 mg/ Premix 100 mls @ 100 mls/hr IV Q8H [facility] Last Admin: 10/28/16 03:20 Dose: 100 mls/hr Ciprofloxacin/Dextrose 400 mg/ (Premix) 200 mls @ 200 mls/hr IV Q12H [facility] Last Admin: 10/26/16 23:43 Dose: 200 mls/hr Lactated Ringer's (Ringers, Lactated) 1,000 mls @ 125 mls/hr IV ASDIRECTED [facility] Last Admin: 10/25/16 10:54 Dose: 125 mls/hr Sodium Chloride (Normal Saline) 500 mls @ 500 mls/hr IV .BOLUS ONE Stop: 10/25/16 19:27 Last Admin: 10/25/16 18:35 Dose: 500 mls/hr Lactated Ringer's (Ringers, Lactated) 1,000 mls @ 100 mls/hr IV ASDIRECTED [facility] Last Admin: 10/27/16 01:56 Dose: 100 mls/hr Ciprofloxacin/Dextrose 400 mg/ (Premix) 200 mls @ 200 mls/hr IV Q12H [facility] Last Admin: 10/28/16 00:18 Dose: 200 mls/hr Acetaminophen (Ofirmev) 100 mls @ as directed IV .STK-MED ONE Stop: 10/24/16 11:01 Lactated Ringer's (Ringers, Lactated) 1,000 mls @ as directed IV .STK-MED ONE Stop: 10/24/16 11:01 Iopamidol (Isovue-370 (76%)) 150 ml IV ONETIME ONE Stop: 10/24/16 09:40 Last Admin: 10/24/16 10:12 Dose: 150 ml Ketorolac Tromethamine (Toradol) 15 mg IVPUSH Q6H [facility] Stop: 10/25/16 15:20 Last Admin: 10/25/16 13:19 Dose: 15 mg Metoclopramide HCl (Reglan) 10 mg IV Q6H [facility] Stop: 10/28/16 02:46 Last Admin: 10/28/16 03:20 Dose: 10 mg Midazolam HCl (Versed 1 Mg/Ml) 1 mg IV .STK-MED ONE Stop: 10/24/16 11:01 Morphine Sulfate (Morphine Crimp Setter 30 Mg In 30 Ml) 0 mg IV ASDIRECTED PRN; Protocol PRN Reason: Pain (severe 7-10) Last Admin: 10/24/16 14:45 Dose: 30 mg Morphine Sulfate (Morphine) 2 mg IVPUSH Q3M PRN PRN Reason: Abdominal Pain Last Admin: 10/20/16 16:22 Dose: 2 mg Morphine Sulfate (Morphine) 1 mg IVPUSH Q5M PRN PRN Reason: Pain (moderate 4-6) Last Admin: 10/24/16 13:59 Dose: 1 mg Morphine Sulfate (Morphine) 2 mg IVPUSH ONETIME PRN PRN Reason: Pain (severe 7-10) Morphine Sulfate (Morphine) 4 mg IVPUSH .STK-MED ONE Stop: 10/24/16 11:01 Naloxone HCl (Narcan) 0.2 mg IVPUSH Q1M PRN PRN Reason: Respiratory Depression Neostigmine Methylsulfate (Neostigmine Methylsulfate) 3 mg IVPUSH .STK-MED ONE Stop: 10/24/16 11:01 Ondansetron HCl (Zofran) 4 mg IVPUSH ONETIME PRN PRN Reason: Nausea/Vomiting Ondansetron HCl (Zofran) 4 mg IVPUSH .STK-MED ONE Stop: 10/24/16 11:01 Phenylephrine HCl (Doug-Synephrine) 0.1 mg IV .STK-MED ONE Stop: 10/24/16 11:01 Propofol (Diprivan 20 Ml) 200 mg IV .STK-MED ONE Stop: 10/24/16 11:01 Rocuronium [place] (Zemuron) 60 mg IV .STK-MED ONE Stop: 10/24/16 11:01 Succinylcholine Chloride (Quelicin) 160 mg IV .STK-MED ONE Stop: 10/24/16 11:01 - Exam Wound/Incisions: Healing Well General: Alert, Oriented Lungs: Clear to Auscultation, Normal Respiratory Effort Cardiovascular: Regular Rate, Regular Rhythm GI/Abdominal Exam: Soft, Non-Tender, Other (ostomy good) Psy/Mental Status: Alert, Normal Affect - Problem List Review Problem List Initiated/Reviewed/Updated: Yes - My Orders Last 24 Hours: Active Orders 24 hr Category Date Time Status Remove Atkinson Catheter [Urinary Catheter Removal] [RC] Care 10/28/16 10:05 Ordered Per Unit Routine Clear Liquid Diet [DIET] Diet 10/28/16 Lunch Ordered BASIC METABOLIC PANEL,BMP [CHEM] Routine Lab 10/29/16 07:00 Ordered CBC W/O DIFF,HEMOGRAM [HEME] Routine Lab 10/29/16 07:00 Ordered Medication Orders Diphenhydramine HCl (Benadryl) 25 mg IVPUSH Q6H PRN PRN Reason: Itching Last Admin: 10/26/16 09:26 Dose: 25 mg Admin: 10/25/16 18:40 Dose: 25 mg Enoxaparin Sodium (Lovenox) 30 mg SUBCUT Q24H [facility] Last Admin: 10/27/16 15:22 Dose: 30 mg Admin: 10/26/16 12:35 Dose: 30 mg Admin: 10/25/16 12:14 Dose: 30 mg Admin: 10/24/16 14:56 Dose: Admin: 10/23/16 12:12 Dose: 30 mg Admin: 10/22/16 12:10 Dose: 30 mg Admin: 10/21/16 12:48 Dose: 30 mg Potassium Cl/Dextrose/Lact Ringer's (D5 Lr With 20 Meq Kcl) 1,000 mls @ 100 mls /hr IV Q10H [facility] Last Admin: 10/28/16 00:07 Dose: 100 mls/hr Infusion: 10/27/16 19:27 Dose: 100 mls/hr Admin: 10/27/16 09:27 Dose: 100 mls/hr Ketorolac Tromethamine (Toradol) 15 mg IVPUSH Q6H [facility] Stop: 10/29/16 10:34 Last Admin: 10/28/16 04:28 Dose: 15 mg Admin: 10/27/16 22:33 Dose: 15 mg Admin: 10/27/16 16:43 Dose: 15 mg Admin: 10/27/16 09:55 Dose: 15 mg Admin: 10/27/16 05:06 Dose: 15 mg Admin: 10/26/16 23:02 Dose: 15 mg Admin: 10/26/16 17:19 Dose: 15 mg Admin: 10/26/16 11:02 Dose: 15 mg Metoprolol Tartrate (Lopressor) 25 mg PO BID [facility] Last Admin: 10/28/16 08:16 Dose: 25 mg Admin: 10/27/16 20:49 Dose: 25 mg Admin: 10/27/16 10:36 Dose: 25 mg Admin: 10/26/16 21:30 Dose: 25 mg Admin: 10/26/16 08:58 Dose: 25 mg Admin: 10/25/16 23:00 Dose: 25 mg Admin: 10/25/16 16:51 Dose: 25 mg Admin: 10/24/16 22:02 Dose: Admin: 10/24/16 08:39 Dose: 25 mg Admin: 10/23/16 21:08 Dose: 25 mg Admin: 10/23/16 09:45 Dose: 25 mg Admin: 10/22/16 21:05 Dose: 25 mg Admin: 10/22/16 09:27 Dose: 25 mg Admin: 10/21/16 21:53 Dose: 25 mg Admin: 10/21/16 10:08 Dose: 25 mg Morphine Sulfate (Morphine Crimp Setter 30 Mg In 30 Ml) 0 mg IV ASDIRECTED PRN; Protocol PRN Reason: Pain (severe 7-10) Last Admin: 10/27/16 10:10 Dose: 30 mg Admin: 10/26/16 04:06 Dose: 30 mg Admin: 10/25/16 09:47 Dose: 30 mg Naloxone HCl (Narcan) 0.4 mg IVPUSH Q2M PRN PRN Reason: Respiratory Distress Pantoprazole Sodium (Protonix Iv) 40 mg IVPUSH DAILY@1600 [facility] Last Admin: 10/27/16 16:42 Dose: 40 mg Admin: 10/26/16 17:13 Dose: 40 mg Admin: 10/25/16 16:45 Dose: 40 mg Admin: 10/24/16 16:54 Dose: 40 mg Admin: 10/23/16 15:54 Dose: 40 mg Admin: 10/22/16 16:27 Dose: 40 mg Admin: 10/21/16 18:06 Dose: 40 mg Admin: 10/20/16 17:29 Dose: 40 mg Sodium Chloride (Saline Flush) 10 ml FLUSH ASDIRECTED PRN PRN Reason: Keep Vein Open Last Admin: 10/22/16 12:18 Dose: 10 ml - Assessment Assessment (Free Text/Narrative):: Ileus resolving; will start liquids - Plan Plan (Free Text/Narrative):: Clear liquids Check labs in am D/C antibiotocs D/C олег
[2016-10-28] MEDS: Enoxaparin 30 MG/0.3 ML Syringe SUBCUT SCH (11:35)
[2016-10-28] MEDS ORDERED: Metoclopramide 10 MG/2 ML SDV IVPUSH PRN (16:17)
[2016-10-28] MEDS: Pantoprazole 40 MG Vial IVPUSH SCH (16:19)
[2016-10-29] MEDS: Ketorolac 15 MG/ML SDV IVPUSH SCH (04:52)
[2016-10-29] MEDS: Dextrose 5%-Lact Ringers w/KCl 1,000 ML IV SCH (07:46)
[2016-10-29] MEDS ORDERED: Ibuprofen 600 MG Tab PO PRN (07:54)
[2016-10-29] MEDS: Metoprolol Tartrate 25 MG Tab PO SCH ×2 (09:28→21:14)
--- NOTE | 2016-10-29 11:28 | PCM.SURGPN ---
- General Info Date of Service: 10/29/16 POD#: 9 Functional Status: Reports: Pain Controlled, Tolerating Diet - Review of Systems General: Reports: No Symptoms Cardiovascular: Reports: No Symptoms Gastrointestinal: Reports: No Symptoms, Other (ostony working well) - Patient Data Vitals - Most Recent: Last Vital Signs Temp 98.3 F 10/29/16 08:00 Pulse 80 10/29/16 09:28 Resp 20 10/29/16 08:00 BP 154/70 H 10/29/16 09:28 Pulse Ox 99 10/29/16 08:00 Weight - Most Recent: 133.492 kg I&O - Last 24 Hours: Intake & Output 10/28/16 10/29/16 10/29/16 22:59 06:59 14:59 Intake Total 863 741 Output Total 1705 1325 Balance -837 534 Lab Results Last 24 Hrs: Laboratory Results - last 24 hr 10/29/16 10/29/16 Range/Units 06:30 06:30 WBC 8.2 (4.5-12.0) X10-3/uL RBC 3.43 L (4.30-5.75) x10(6)uL Hgb 7.4 L (11.5-15.5) g/dL Hct 23.9 L (30.0-51.3) % MCV 69.7 L (80-96) fL MCH 21.7 L (27.7-33.6) pg MCHC 31.1 L (32.2-35.4) g/dL RDW 21.2 H (11.5-15.5) % Plt Count 445 H (125-369) X10(3)uL Sodium 141 (135-145) mmol/L Potassium 3.7 (3.5-5.3) mmol/L Chloride 112 H D (100-110) mmol/L Carbon Dioxide 24 (23-29) mmol/L BUN 10 (8-23) mg/dL Creatinine 0.8 (0.6-1.3) mg/dL Est Cr Clr Drug Dosing 78.58 mL/min Estimated GFR (MDRD) > 60 (>60) BUN/Creatinine Ratio 12.5 (9-20) Glucose 152 H (80-116) mg/dL Calcium 8.2 L (8.6-10.2) mg/dL Med Orders - Current: Current Medications Diphenhydramine HCl (Benadryl) 25 mg IVPUSH Q6H PRN PRN Reason: Itching Last Admin: 10/26/16 09:26 Dose: 25 mg Enoxaparin Sodium (Lovenox) 30 mg SUBCUT Q24H [facility] Last Admin: 10/28/16 11:35 Dose: 30 mg Potassium Cl/Dextrose/Lact Ringer's (D5 Lr With 20 Meq Kcl) 1,000 mls @ 50 mls/ hr IV Q10H [facility] Last Admin: 10/29/16 07:46 Dose: 100 mls/hr Ibuprofen (Motrin) 600 mg PO Q6H PRN PRN Reason: Pain Metoclopramide HCl (Reglan) 10 mg IVPUSH Q6H PRN PRN Reason: Nausea Last Admin: 10/28/16 16:58 Dose: 10 mg Metoprolol Tartrate (Lopressor) 25 mg PO BID [facility] Last Admin: 10/29/16 09:28 Dose: 25 mg Naloxone HCl (Narcan) 0.4 mg IVPUSH Q2M PRN PRN Reason: Respiratory Distress Pantoprazole Sodium (Protonix Iv) 40 mg IVPUSH DAILY@1600 [facility] Last Admin: 10/28/16 16:19 Dose: 40 mg Sodium Chloride (Saline Flush) 10 ml FLUSH ASDIRECTED PRN PRN Reason: Keep Vein Open Last Admin: 10/22/16 12:18 Dose: 10 ml Discontinued Medications Citric Acid/Sodium Citrate (Bicitra Solution) 30 ml PO .STK-MED ONE Stop: 10/20/16 12:31 Fentanyl (Sublimaze) 50 mcg IVPUSH Q5M PRN PRN Reason: Pain (severe 7-10) Fentanyl (Sublimaze) 200 mcg IV .STK-MED ONE Stop: 10/24/16 11:01 Fentanyl (Sublimaze) 200 mcg IV .STK-MED ONE Stop: 10/20/16 12:31 Furosemide (Lasix) 10 mg IVPUSH NOW ONE Stop: 10/25/16 21:32 Last Admin: 10/25/16 21:43 Dose: 10 mg Furosemide (Lasix) 10 mg IVPUSH NOW ONE Stop: 10/26/16 10:47 Last Admin: 10/26/16 11:06 Dose: 10 mg Glycopyrrolate (Robinul) 0.6 mg IV .STK-MED ONE Stop: 10/24/16 11:01 Glycopyrrolate (Robinul) 0.5 mg IV .STK-MED ONE Stop: 10/20/16 12:31 Lactated Ringer's (Ringers, Lactated) 1,000 mls @ 125 mls/hr IV ASDIRECTED [facility] Last Admin: 10/20/16 12:10 Dose: 125 mls/hr Cefoxitin Sodium 2 gm/ Sodium (Chloride) 100 mls @ 200 mls/hr IV ONETIME ONE Stop: 10/20/16 12:59 Last Admin: 10/20/16 12:20 Dose: 200 mls/hr Lactated Ringer's (Ringers, Lactated) 1,000 mls @ 75 mls/hr IV ASDIRECTED [facility] Last Admin: 10/24/16 14:42 Dose: 75 mls/hr Cefoxitin Sodium 1 gm/ Sodium (Chloride) 50 mls @ 100 mls/hr IV Q6H [facility] Stop: 10/22/16 07:29 Last Admin: 10/22/16 06:12 Dose: 100 mls/hr Promethazine HCl 25 mg/ Sodium (Chloride) 51 mls @ 200 mls/hr IV Q6H PRN PRN Reason: Nausea/Vomiting Last Admin: 10/27/16 07:43 Dose: 200 mls/hr Metronidazole (Flagyl 500 Mg In Ns 100 Ml) 100 mls @ 200 mls/hr IV ONETIME ONE Stop: 10/24/16 12:14 Last Admin: 10/24/16 11:51 Dose: 200 mls/hr Ciprofloxacin/Dextrose 400 mg/ (Premix) 200 mls @ 200 mls/hr IV ONETIME ONE Stop: 10/24/16 12:44 Last Admin: 10/24/16 11:46 Dose: 200 mls/hr Lactated Ringer's (Ringers, Lactated) 1,000 mls @ 0 mls/hr IV ASDIRECTED [facility] PRN Reason: KVO Ciprofloxacin/Dextrose 400 mg/ (Premix) 200 mls @ 200 mls/hr IV Q12H [facility] Metronidazole 500 mg/ Premix 100 mls @ 100 mls/hr IV Q8H [facility] Last Admin: 10/28/16 03:20 Dose: 100 mls/hr Ciprofloxacin/Dextrose 400 mg/ (Premix) 200 mls @ 200 mls/hr IV Q12H [facility] Last Admin: 10/26/16 23:43 Dose: 200 mls/hr Lactated Ringer's (Ringers, Lactated) 1,000 mls @ 125 mls/hr IV ASDIRECTED [facility] Last Admin: 10/25/16 10:54 Dose: 125 mls/hr Sodium Chloride (Normal Saline) 500 mls @ 500 mls/hr IV .BOLUS ONE Stop: 10/25/16 19:27 Last Admin: 10/25/16 18:35 Dose: 500 mls/hr Lactated Ringer's (Ringers, Lactated) 1,000 mls @ 100 mls/hr IV ASDIRECTED [facility] Last Admin: 10/27/16 01:56 Dose: 100 mls/hr Ciprofloxacin/Dextrose 400 mg/ (Premix) 200 mls @ 200 mls/hr IV Q12H [facility] Last Admin: 10/28/16 00:18 Dose: 200 mls/hr Acetaminophen (Ofirmev) 100 mls @ as directed IV .STK-MED ONE Stop: 10/24/16 11:01 Lactated Ringer's (Ringers, Lactated) 1,000 mls @ as directed IV .STK-MED ONE Stop: 10/24/16 11:01 Lactated Ringer's (Ringers, Lactated) 1,000 mls @ as directed IV .STK-MED ONE Stop: 10/20/16 12:31 Iopamidol (Isovue-370 (76%)) 150 ml IV ONETIME ONE Stop: 10/24/16 09:40 Last Admin: 10/24/16 10:12 Dose: 150 ml Ketorolac Tromethamine (Toradol) 15 mg IVPUSH Q6H [facility] Stop: 10/25/16 15:20 Last Admin: 10/25/16 13:19 Dose: 15 mg Ketorolac Tromethamine (Toradol) 15 mg IVPUSH Q6H [facility] Stop: 10/29/16 10:34 Last Admin: 10/29/16 04:52 Dose: 15 mg Ketorolac Tromethamine (Toradol) 30 mg IVPUSH .STK-MED ONE Stop: 10/20/16 12:31 Labetalol HCl (Normodyne) 5 mg IV .STK-MED ONE Stop: 10/20/16 12:31 Metoclopramide HCl (Reglan) 10 mg IV Q6H [facility] Stop: 10/28/16 02:46 Last Admin: 10/28/16 03:20 Dose: 10 mg Midazolam HCl (Versed 1 Mg/Ml) 1 mg IV .STK-MED ONE Stop: 10/24/16 11:01 Midazolam HCl (Versed 1 Mg/Ml) 2 mg IV .STK-MED ONE Stop: 10/20/16 12:31 Morphine Sulfate (Morphine Noc Technician 30 Mg In 30 Ml) 0 mg IV ASDIRECTED PRN; Protocol PRN Reason: Pain (severe 7-10) Last Admin: 10/24/16 14:45 Dose: 30 mg Morphine Sulfate (Morphine) 2 mg IVPUSH Q3M PRN PRN Reason: Abdominal Pain Last Admin: 10/20/16 16:22 Dose: 2 mg Morphine Sulfate (Morphine) 1 mg IVPUSH Q5M PRN PRN Reason: Pain (moderate 4-6) Last Admin: 10/24/16 13:59 Dose: 1 mg Morphine Sulfate (Morphine) 2 mg IVPUSH ONETIME PRN PRN Reason: Pain (severe 7-10) Morphine Sulfate (Morphine Noc Technician 30 Mg In 30 Ml) 0 mg IV ASDIRECTED PRN; Protocol PRN Reason: Pain (severe 7-10) Last Admin: 10/27/16 10:10 Dose: 30 mg Morphine Sulfate (Morphine) 4 mg IVPUSH .STK-MED ONE Stop: 10/24/16 11:01 Naloxone HCl (Narcan) 0.2 mg IVPUSH Q1M PRN PRN Reason: Respiratory Depression Neostigmine Methylsulfate (Neostigmine Methylsulfate) 3 mg IVPUSH .STK-MED ONE Stop: 10/24/16 11:01 Neostigmine Methylsulfate (Neostigmine Methylsulfate) 5 mg IVPUSH .STK-MED ONE Stop: 10/20/16 12:31 Ondansetron HCl (Zofran) 4 mg IVPUSH ONETIME PRN PRN Reason: Nausea/Vomiting Ondansetron HCl (Zofran) 4 mg IVPUSH .STK-MED ONE Stop: 10/24/16 11:01 Ondansetron HCl (Zofran) 4 mg IVPUSH .STK-MED ONE Stop: 10/20/16 12:31 Phenylephrine HCl (Doug-Synephrine) 0.1 mg IV .STK-MED ONE Stop: 10/24/16 11:01 Propofol (Diprivan 20 Ml) 200 mg IV .STK-MED ONE Stop: 10/24/16 11:01 Propofol (Diprivan 20 Ml) 150 mg IV .STK-MED ONE Stop: 10/20/16 12:31 Rocuronium [place] (Zemuron) 60 mg IV .STK-MED ONE Stop: 10/24/16 11:01 Rocuronium [place] (Zemuron) 80 mg IV .STK-MED ONE Stop: 10/20/16 12:31 Succinylcholine Chloride (Quelicin) 160 mg IV .STK-MED ONE Stop: 10/24/16 11:01 Succinylcholine Chloride (Quelicin) 100 mg IV .STK-MED ONE Stop: 10/20/16 12:31 - Exam Wound/Incisions: Healing Well, Dressing Dry and Intact General: Alert, Oriented Lungs: Clear to Auscultation GI/Abdominal Exam: Soft, Non-Tender, Other (ileostomy pink) - Problem List Review Problem List Initiated/Reviewed/Updated: Yes - My Orders Last 24 Hours: Active Orders 24 hr Category Date Time Status Full Liquid Diet [DIET] Diet 10/29/16 Lunch Active Ibuprofen [Motrin] Med 10/29/16 07:54 Active 600 mg PO Q6H PRN Metoclopramide [Reglan] Med 10/28/16 16:17 Active 10 mg IVPUSH Q6H PRN Oral Nutrition Supplement [COMM] BID Oth 10/29/16 11:18 Ordered Oral Nutrition Supplement [COMM] BID Oth 10/30/16 11:18 Ordered Oral Nutrition Supplement [COMM] BID Oth 10/31/16 11:18 Ordered Oral Nutrition Supplement [COMM] BID Oth 11/01/16 11:18 Ordered Oral Nutrition Supplement [COMM] BID Oth 11/02/16 11:18 Ordered Oral Nutrition Supplement [COMM] BID Oth 11/03/16 11:18 Ordered Oral Nutrition Supplement [COMM] BID Oth 11/04/16 11:18 Ordered Medication Orders Diphenhydramine HCl (Benadryl) 25 mg IVPUSH Q6H PRN PRN Reason: Itching Last Admin: 10/26/16 09:26 Dose: 25 mg Admin: 10/25/16 18:40 Dose: 25 mg Enoxaparin Sodium (Lovenox) 30 mg SUBCUT Q24H [facility] Last Admin: 10/28/16 11:35 Dose: 30 mg Admin: 10/27/16 15:22 Dose: 30 mg Admin: 10/26/16 12:35 Dose: 30 mg Admin: 10/25/16 12:14 Dose: 30 mg Admin: 10/24/16 14:56 Dose: Admin: 10/23/16 12:12 Dose: 30 mg Admin: 10/22/16 12:10 Dose: 30 mg Admin: 10/21/16 12:48 Dose: 30 mg Potassium Cl/Dextrose/Lact Ringer's (D5 Lr With 20 Meq Kcl) 1,000 mls @ 50 mls/ hr IV Q10H [facility] Last Admin: 10/29/16 07:46 Dose: 100 mls/hr Infusion: 10/29/16 07:40 Dose: 100 mls/hr Admin: 10/28/16 21:40 Dose: 100 mls/hr Infusion: 10/28/16 21:35 Dose: 100 mls/hr Admin: 10/28/16 11:35 Dose: 100 mls/hr Infusion: 10/28/16 10:07 Dose: 100 mls/hr Admin: 10/28/16 00:07 Dose: 100 mls/hr Infusion: 10/27/16 19:27 Dose: 100 mls/hr Admin: 10/27/16 09:27 Dose: 100 mls/hr Ibuprofen (Motrin) 600 mg PO Q6H PRN PRN Reason: Pain Metoclopramide HCl (Reglan) 10 mg IVPUSH Q6H PRN PRN Reason: Nausea Last Admin: 10/28/16 16:58 Dose: 10 mg Metoprolol Tartrate (Lopressor) 25 mg PO BID [facility] Last Admin: 10/29/16 09:28 Dose: 25 mg Admin: 10/28/16 20:00 Dose: 25 mg Admin: 10/28/16 08:16 Dose: 25 mg Admin: 10/27/16 20:49 Dose: 25 mg Admin: 10/27/16 10:36 Dose: 25 mg Admin: 10/26/16 21:30 Dose: 25 mg Admin: 10/26/16 08:58 Dose: 25 mg Admin: 10/25/16 23:00 Dose: 25 mg Admin: 10/25/16 16:51 Dose: 25 mg Admin: 10/24/16 22:02 Dose: Admin: 10/24/16 08:39 Dose: 25 mg Admin: 10/23/16 21:08 Dose: 25 mg Admin: 10/23/16 09:45 Dose: 25 mg Admin: 10/22/16 21:05 Dose: 25 mg Admin: 10/22/16 09:27 Dose: 25 mg Admin: 10/21/16 21:53 Dose: 25 mg Admin: 10/21/16 10:08 Dose: 25 mg Naloxone HCl (Narcan) 0.4 mg IVPUSH Q2M PRN PRN Reason: Respiratory Distress Pantoprazole Sodium (Protonix Iv) 40 mg IVPUSH DAILY@1600 [facility] Last Admin: 10/28/16 16:19 Dose: 40 mg Admin: 10/27/16 16:42 Dose: 40 mg Admin: 10/26/16 17:13 Dose: 40 mg Admin: 10/25/16 16:45 Dose: 40 mg Admin: 10/24/16 16:54 Dose: 40 mg Admin: 10/23/16 15:54 Dose: 40 mg Admin: 10/22/16 16:27 Dose: 40 mg Admin: 10/21/16 18:06 Dose: 40 mg Admin: 10/20/16 17:29 Dose: 40 mg Sodium Chloride (Saline Flush) 10 ml FLUSH ASDIRECTED PRN PRN Reason: Keep Vein Open Last Admin: 10/22/16 12:18 Dose: 10 ml - Assessment Assessment (Free Text/Narrative):: Bowel function returning - Plan Plan (Free Text/Narrative):: Slowly advance diet Decrease IV fluids
[2016-10-29] MEDS: Enoxaparin 30 MG/0.3 ML Syringe SUBCUT SCH (12:32)
[2016-10-29] MEDS: Sodium Chloride 0.9% 10 ML Syringe FLUSH PRN (15:48)
[2016-10-29] MEDS: Pantoprazole 40 MG Vial IVPUSH SCH (16:56)
[2016-10-29] MEDS ORDERED: Sodium Chloride 0.65% Nasal Spray 45 ML Bottle NAS PRN (21:29)
[2016-10-29] MEDS ORDERED: Dextrose 5%-Lact Ringers w/KCl 1,000 ML IV SCH (22:00)
[2016-10-30] MEDS: Metoprolol Tartrate 25 MG Tab PO SCH ×2 (08:32→20:49)
--- NOTE | 2016-10-30 10:24 | PCM.SURGPN ---
- General Info Date of Service: 10/30/16 POD#: 10 Functional Status: Reports: Pain Controlled, Tolerating Diet, Ambulating - Review of Systems General: Reports: No Symptoms Gastrointestinal: Reports: No Symptoms - Patient Data Vitals - Most Recent: Last Vital Signs Temp 97.9 F 10/30/16 08:00 Pulse 80 10/30/16 08:32 Resp 18 10/30/16 04:00 BP 162/76 H 10/30/16 08:32 Pulse Ox 97 10/30/16 08:00 Weight - Most Recent: 129.909 kg I&O - Last 24 Hours: Intake & Output 10/29/16 10/30/16 10/30/16 22:59 06:59 14:59 Intake Total 534 498 Output Total 1400 1200 550 Balance -090 -702 -550 Med Orders - Current: Current Medications Diphenhydramine HCl (Benadryl) 25 mg IVPUSH Q6H PRN PRN Reason: Itching Last Admin: 10/26/16 09:26 Dose: 25 mg Enoxaparin Sodium (Lovenox) 30 mg SUBCUT Q24H [facility] Last Admin: 10/29/16 12:32 Dose: 30 mg Potassium Cl/Dextrose/Lact Ringer's (D5 Lr With 20 Meq Kcl) 1,000 mls @ 50 mls/ hr IV Q20H [facility] Last Admin: 10/29/16 22:02 Dose: 50 mls/hr Ibuprofen (Motrin) 600 mg PO Q6H PRN PRN Reason: Pain Last Admin: 10/29/16 15:47 Dose: 600 mg Metoclopramide HCl (Reglan) 10 mg IVPUSH Q6H PRN PRN Reason: Nausea Last Admin: 10/28/16 16:58 Dose: 10 mg Metoprolol Tartrate (Lopressor) 25 mg PO BID [facility] Last Admin: 10/30/16 08:32 Dose: 25 mg Naloxone HCl (Narcan) 0.4 mg IVPUSH Q2M PRN PRN Reason: Respiratory Distress Pantoprazole Sodium (Protonix) 40 mg PO 0600 [facility] Sodium Chloride (Saline Flush) 10 ml FLUSH ASDIRECTED PRN PRN Reason: Keep Vein Open Last Admin: 10/29/16 15:48 Dose: 10 ml Sodium Chloride ([place] Nasal [place]) 1 ml RONAK Q2H PRN PRN Reason: Congestion Discontinued Medications Citric Acid/Sodium Citrate (Bicitra Solution) 30 ml PO .STK-MED ONE Stop: 10/20/16 12:31 Fentanyl (Sublimaze) 50 mcg IVPUSH Q5M PRN PRN Reason: Pain (severe 7-10) Fentanyl (Sublimaze) 200 mcg IV .STK-MED ONE Stop: 10/24/16 11:01 Fentanyl (Sublimaze) 200 mcg IV .STK-MED ONE Stop: 10/20/16 12:31 Furosemide (Lasix) 10 mg IVPUSH NOW ONE Stop: 10/25/16 21:32 Last Admin: 10/25/16 21:43 Dose: 10 mg Furosemide (Lasix) 10 mg IVPUSH NOW ONE Stop: 10/26/16 10:47 Last Admin: 10/26/16 11:06 Dose: 10 mg Glycopyrrolate (Robinul) 0.6 mg IV .STK-MED ONE Stop: 10/24/16 11:01 Glycopyrrolate (Robinul) 0.5 mg IV .STK-MED ONE Stop: 10/20/16 12:31 Lactated Ringer's (Ringers, Lactated) 1,000 mls @ 125 mls/hr IV ASDIRECTED [facility] Last Admin: 10/20/16 12:10 Dose: 125 mls/hr Cefoxitin Sodium 2 gm/ Sodium (Chloride) 100 mls @ 200 mls/hr IV ONETIME ONE Stop: 10/20/16 12:59 Last Admin: 10/20/16 12:20 Dose: 200 mls/hr Lactated Ringer's (Ringers, Lactated) 1,000 mls @ 75 mls/hr IV ASDIRECTED [facility] Last Admin: 10/24/16 14:42 Dose: 75 mls/hr Cefoxitin Sodium 1 gm/ Sodium (Chloride) 50 mls @ 100 mls/hr IV Q6H [facility] Stop: 10/22/16 07:29 Last Admin: 10/22/16 06:12 Dose: 100 mls/hr Promethazine HCl 25 mg/ Sodium (Chloride) 51 mls @ 200 mls/hr IV Q6H PRN PRN Reason: Nausea/Vomiting Last Admin: 10/27/16 07:43 Dose: 200 mls/hr Metronidazole (Flagyl 500 Mg In Ns 100 Ml) 100 mls @ 200 mls/hr IV ONETIME ONE Stop: 10/24/16 12:14 Last Admin: 10/24/16 11:51 Dose: 200 mls/hr Ciprofloxacin/Dextrose 400 mg/ (Premix) 200 mls @ 200 mls/hr IV ONETIME ONE Stop: 10/24/16 12:44 Last Admin: 10/24/16 11:46 Dose: 200 mls/hr Lactated Ringer's (Ringers, Lactated) 1,000 mls @ 0 mls/hr IV ASDIRECTED [facility] PRN Reason: KVO Ciprofloxacin/Dextrose 400 mg/ (Premix) 200 mls @ 200 mls/hr IV Q12H [facility] Metronidazole 500 mg/ Premix 100 mls @ 100 mls/hr IV Q8H [facility] Last Admin: 10/28/16 03:20 Dose: 100 mls/hr Ciprofloxacin/Dextrose 400 mg/ (Premix) 200 mls @ 200 mls/hr IV Q12H [facility] Last Admin: 10/26/16 23:43 Dose: 200 mls/hr Lactated Ringer's (Ringers, Lactated) 1,000 mls @ 125 mls/hr IV ASDIRECTED [facility] Last Admin: 10/25/16 10:54 Dose: 125 mls/hr Sodium Chloride (Normal Saline) 500 mls @ 500 mls/hr IV .BOLUS ONE Stop: 10/25/16 19:27 Last Admin: 10/25/16 18:35 Dose: 500 mls/hr Lactated Ringer's (Ringers, Lactated) 1,000 mls @ 100 mls/hr IV ASDIRECTED [facility] Last Admin: 10/27/16 01:56 Dose: 100 mls/hr Potassium Cl/Dextrose/Lact Ringer's (D5 Lr With 20 Meq Kcl) 1,000 mls @ 50 mls/ hr IV Q10H [facility] Stop: 10/29/16 21:59 Last Admin: 10/29/16 07:46 Dose: 100 mls/hr Ciprofloxacin/Dextrose 400 mg/ (Premix) 200 mls @ 200 mls/hr IV Q12H [facility] Last Admin: 10/28/16 00:18 Dose: 200 mls/hr Acetaminophen (Ofirmev) 100 mls @ as directed IV .STK-MED ONE Stop: 10/24/16 11:01 Lactated Ringer's (Ringers, Lactated) 1,000 mls @ as directed IV .STK-MED ONE Stop: 10/24/16 11:01 Lactated Ringer's (Ringers, Lactated) 1,000 mls @ as directed IV .STK-MED ONE Stop: 10/20/16 12:31 Iopamidol (Isovue-370 (76%)) 150 ml IV ONETIME ONE Stop: 10/24/16 09:40 Last Admin: 10/24/16 10:12 Dose: 150 ml Ketorolac Tromethamine (Toradol) 15 mg IVPUSH Q6H [facility] Stop: 10/25/16 15:20 Last Admin: 10/25/16 13:19 Dose: 15 mg Ketorolac Tromethamine (Toradol) 15 mg IVPUSH Q6H [facility] Stop: 10/29/16 10:34 Last Admin: 10/29/16 04:52 Dose: 15 mg Ketorolac Tromethamine (Toradol) 30 mg IVPUSH .STK-MED ONE Stop: 10/20/16 12:31 Labetalol HCl (Normodyne) 5 mg IV .STK-MED ONE Stop: 10/20/16 12:31 Metoclopramide HCl (Reglan) 10 mg IV Q6H [facility] Stop: 10/28/16 02:46 Last Admin: 10/28/16 03:20 Dose: 10 mg Midazolam HCl (Versed 1 Mg/Ml) 1 mg IV .STK-MED ONE Stop: 10/24/16 11:01 Midazolam HCl (Versed 1 Mg/Ml) 2 mg IV .STK-MED ONE Stop: 10/20/16 12:31 Morphine Sulfate (Morphine Work And Family Life Consultant 30 Mg In 30 Ml) 0 mg IV ASDIRECTED PRN; Protocol PRN Reason: Pain (severe 7-10) Last Admin: 10/24/16 14:45 Dose: 30 mg Morphine Sulfate (Morphine) 2 mg IVPUSH Q3M PRN PRN Reason: Abdominal Pain Last Admin: 10/20/16 16:22 Dose: 2 mg Morphine Sulfate (Morphine) 1 mg IVPUSH Q5M PRN PRN Reason: Pain (moderate 4-6) Last Admin: 10/24/16 13:59 Dose: 1 mg Morphine Sulfate (Morphine) 2 mg IVPUSH ONETIME PRN PRN Reason: Pain (severe 7-10) Morphine Sulfate (Morphine Work And Family Life Consultant 30 Mg In 30 Ml) 0 mg IV ASDIRECTED PRN; Protocol PRN Reason: Pain (severe 7-10) Last Admin: 10/27/16 10:10 Dose: 30 mg Morphine Sulfate (Morphine) 4 mg IVPUSH .STK-MED ONE Stop: 10/24/16 11:01 Naloxone HCl (Narcan) 0.2 mg IVPUSH Q1M PRN PRN Reason: Respiratory Depression Neostigmine Methylsulfate (Neostigmine Methylsulfate) 3 mg IVPUSH .STK-MED ONE Stop: 10/24/16 11:01 Neostigmine Methylsulfate (Neostigmine Methylsulfate) 5 mg IVPUSH .STK-MED ONE Stop: 10/20/16 12:31 Ondansetron HCl (Zofran) 4 mg IVPUSH ONETIME PRN PRN Reason: Nausea/Vomiting Ondansetron HCl (Zofran) 4 mg IVPUSH .STK-MED ONE Stop: 10/24/16 11:01 Ondansetron HCl (Zofran) 4 mg IVPUSH .STK-MED ONE Stop: 10/20/16 12:31 Pantoprazole Sodium (Protonix Iv) 40 mg IVPUSH DAILY@1600 [facility] Last Admin: 10/29/16 16:56 Dose: 40 mg Phenylephrine HCl (Doug-Synephrine) 0.1 mg IV .STK-MED ONE Stop: 10/24/16 11:01 Propofol (Diprivan 20 Ml) 200 mg IV .STK-MED ONE Stop: 10/24/16 11:01 Propofol (Diprivan 20 Ml) 150 mg IV .STK-MED ONE Stop: 10/20/16 12:31 Rocuronium [place] (Zemuron) 60 mg IV .STK-MED ONE Stop: 10/24/16 11:01 Rocuronium [place] (Zemuron) 80 mg IV .STK-MED ONE Stop: 10/20/16 12:31 Succinylcholine Chloride (Quelicin) 160 mg IV .STK-MED ONE Stop: 10/24/16 11:01 Succinylcholine Chloride (Quelicin) 100 mg IV .STK-MED ONE Stop: 10/20/16 12:31 - Exam Wound/Incisions: Healing Well General: Alert, Oriented Lungs: Clear to Auscultation GI/Abdominal Exam: Soft, Non-Tender - Problem List Review Problem List Initiated/Reviewed/Updated: Yes - My Orders Last 24 Hours: Active Orders 24 hr Category Date Time Status Full Liquid Diet [DIET] Diet 10/30/16 Lunch Ordered Soft Diet [DIET] Diet 10/30/16 Lunch Ordered Dextrose 5%-Lact Ringers w/KCl [D5 LR with 20 mEq KCl] Med 10/29/16 22:00 Active 1,000 ml IV Q20H Pantoprazole [ProTONIX] Med 10/30/16 10:30 Ordered 40 mg PO 0600 Sodium Chloride 0.65% [[place] Nasal [place]] Med 10/29/16 21:29 Active 1 ml RONAK Q2H PRN Oral Nutrition Supplement [COMM] BID [facility] 10/29/16 11:18 Ordered Oral Nutrition Supplement [COMM] BID [facility] 10/30/16 11:18 Ordered Oral Nutrition Supplement [COMM] BID [facility] 10/31/16 11:18 Ordered Oral Nutrition Supplement [COMM] BID [facility] 11/01/16 11:18 Ordered Oral Nutrition Supplement [COMM] BID [facility] 11/02/16 11:18 Ordered Oral Nutrition Supplement [COMM] BID [facility] 11/03/16 11:18 Ordered Oral Nutrition Supplement [COMM] BID [facility] 11/04/16 11:18 Ordered Medication Orders Diphenhydramine HCl (Benadryl) 25 mg IVPUSH Q6H PRN PRN Reason: Itching Last Admin: 10/26/16 09:26 Dose: 25 mg Admin: 10/25/16 18:40 Dose: 25 mg Enoxaparin Sodium (Lovenox) 30 mg SUBCUT Q24H LEROY Last Admin: 10/29/16 12:32 Dose: 30 mg Admin: 10/28/16 11:35 Dose: 30 mg Admin: 10/27/16 15:22 Dose: 30 mg Admin: 10/26/16 12:35 Dose: 30 mg Admin: 10/25/16 12:14 Dose: 30 mg Admin: 10/24/16 14:56 Dose: Admin: 10/23/16 12:12 Dose: 30 mg Admin: 10/22/16 12:10 Dose: 30 mg Admin: 10/21/16 12:48 Dose: 30 mg Potassium Cl/Dextrose/Lact Ringer's (D5 Lr With 20 Meq Kcl) 1,000 mls @ 50 mls/ hr IV Q20H LEROY Last Admin: 10/29/16 22:02 Dose: 50 mls/hr Ibuprofen (Motrin) 600 mg PO Q6H PRN PRN Reason: Pain Last Admin: 10/29/16 15:47 Dose: 600 mg Metoclopramide HCl (Reglan) 10 mg IVPUSH Q6H PRN PRN Reason: Nausea Last Admin: 10/28/16 16:58 Dose: 10 mg Metoprolol Tartrate (Lopressor) 25 mg PO BID LEROY Last Admin: 10/30/16 08:32 Dose: 25 mg Admin: 10/29/16 21:14 Dose: 25 mg Admin: 10/29/16 09:28 Dose: 25 mg Admin: 10/28/16 20:00 Dose: 25 mg Admin: 10/28/16 08:16 Dose: 25 mg Admin: 10/27/16 20:49 Dose: 25 mg Admin: 10/27/16 10:36 Dose: 25 mg Admin: 10/26/16 21:30 Dose: 25 mg Admin: 10/26/16 08:58 Dose: 25 mg Admin: 10/25/16 23:00 Dose: 25 mg Admin: 10/25/16 16:51 Dose: 25 mg Admin: 10/24/16 22:02 Dose: Admin: 10/24/16 08:39 Dose: 25 mg Admin: 10/23/16 21:08 Dose: 25 mg Admin: 10/23/16 09:45 Dose: 25 mg Admin: 10/22/16 21:05 Dose: 25 mg Admin: 10/22/16 09:27 Dose: 25 mg Admin: 10/21/16 21:53 Dose: 25 mg Admin: 10/21/16 10:08 Dose: 25 mg Naloxone HCl (Narcan) 0.4 mg IVPUSH Q2M PRN PRN Reason: Respiratory Distress Pantoprazole Sodium (Protonix) 40 mg PO 0600 [facility] Sodium Chloride (Saline Flush) 10 ml FLUSH ASDIRECTED PRN PRN Reason: Keep Vein Open Last Admin: 10/29/16 15:48 Dose: 10 ml Admin: 10/22/16 12:18 Dose: 10 ml Sodium Chloride ([place] Nasal [place]) 1 ml RONAK Q2H PRN PRN Reason: Congestion - Assessment Assessment (Free Text/Narrative):: Doing well - Plan Plan (Free Text/Narrative):: Advance diet
[2016-10-30] MEDS: Dextrose 5%-Lact Ringers w/KCl 1,000 ML IV SCH ×2 (11:43→11:44)
[2016-10-30] MEDS: Pantoprazole 40 MG Tab.CR PO SCH (11:46)
[2016-10-30] MEDS: Enoxaparin 30 MG/0.3 ML Syringe SUBCUT SCH (12:06)
[2016-10-31] MEDS: Pantoprazole 40 MG Tab.CR PO SCH (06:19)
[2016-10-31] MEDS: Metoprolol Tartrate 25 MG Tab PO SCH (08:36)
[2016-10-31 08:39] VITALS: BP 141/56
--- NOTE | 2016-10-31 11:14 | PCM.DCSUM1 ---
Discharge Summary - Hospital Course Free Text/Narrative:: Patient underwent R colectomy for adenocarcinoma of the ascending colon 2016. Post op did well the first few days and then developec severe abd pain the morning of 10/24/2016. CT scan showed ascites and a few air bubbles outside of the colon. He was brought back to the OR and leakwas confirmed, The leak was repaired and a diverting loop ileostomy was created. He is now doing well and tolerating regular diet and ready for discharge. - Discharge Data Discharge Date: 10/31/16 Discharge Disposition: Home, Self-Care 01 Condition: Good - Patient Summary/Data Operative Procedure(s) Performed: Expl Lap, Repair Anast Leak; Diverting loop ileostomy - Patient Instructions Diet: Regular Diet as Tolerated Activity: No Lifting Over 20 Pounds (for 6 weeks) Driving: Do Not Drive (for 3 weeks) Showering/Bathing: June Shower Wound/Incision Care: Keep Operative Site/Wound Site Clean and Dry - Discharge Plan Home Medications: Home Meds Esomeprazole [NexIUM] 40 mg PO DAILY 11/14/12 [History] Metoprolol Tartrate 25 mg PO BID 11/14/12 [History] Fesoterodine Fumarate [Toviaz] 4 mg PO DAILY 10/10/16 [History] Naproxen Sodium [Aleve] 440 mg PO ASDIRECTED PRN 10/10/16 [History] Simvastatin [Zocor] 10 mg PO BEDTIME 10/10/16 [History] Fluticasone Propionate [Flonase Allergy Relief] 2 sprays NS DAILY PRN 10/13/16 [ History] Referrals: Blake Johnson MD [Physician] - (f/u next Tues for staple removal) - Discharge Summary/Plan Comment DC Time >30 min.: No Discharge Summary/Plan Comment: Start MVI with Fe daily - General Info Functional Status: Reports: Pain Controlled, Tolerating Diet, Ambulating - Review of Systems General: Reports: No Symptoms Pulmonary: Reports: No Symptoms Cardiovascular: Reports: No Symptoms Gastrointestinal: Reports: No Symptoms - Patient Data Vitals - Most Recent: Last Vital Signs Temp 98.4 F 10/31/16 08:00 Pulse 82 10/31/16 08:36 Resp 18 10/31/16 08:00 BP 141/56 H 10/31/16 08:36 Pulse Ox 97 10/31/16 08:00 Weight - Most Recent: 129.228 kg I&O - Last 24 hours: Intake & Output 10/30/16 10/31/16 10/31/16 22:59 06:59 14:59 Intake Total 820 150 Output Total 1000 1225 Balance -180 -1075 Med Orders - Current: Current Medications Diphenhydramine HCl (Benadryl) 25 mg IVPUSH Q6H PRN PRN Reason: Itching Last Admin: 10/26/16 09:26 Dose: 25 mg Enoxaparin Sodium (Lovenox) 30 mg SUBCUT Q24H [facility] Last Admin: 10/30/16 12:06 Dose: 30 mg Ibuprofen (Motrin) 600 mg PO Q6H PRN PRN Reason: Pain Last Admin: 10/29/16 15:47 Dose: 600 mg Metoclopramide HCl (Reglan) 10 mg IVPUSH Q6H PRN PRN Reason: Nausea Last Admin: 10/28/16 16:58 Dose: 10 mg Metoprolol Tartrate (Lopressor) 25 mg PO BID [facility] Last Admin: 10/31/16 08:36 Dose: 25 mg Naloxone HCl (Narcan) 0.4 mg IVPUSH Q2M PRN PRN Reason: Respiratory Distress Pantoprazole Sodium (Protonix) 40 mg PO 0600 [facility] Last Admin: 10/31/16 06:19 Dose: 40 mg Sodium Chloride (Saline Flush) 10 ml FLUSH ASDIRECTED PRN PRN Reason: Keep Vein Open Last Admin: 10/29/16 15:48 Dose: 10 ml Sodium Chloride ([place] Nasal [place]) 1 ml RONAK Q2H PRN PRN Reason: Congestion Discontinued Medications Citric Acid/Sodium Citrate (Bicitra Solution) 30 ml PO .STK-MED ONE Stop: 10/20/16 12:31 Fentanyl (Sublimaze) 50 mcg IVPUSH Q5M PRN PRN Reason: Pain (severe 7-10) Fentanyl (Sublimaze) 200 mcg IV .STK-MED ONE Stop: 10/24/16 11:01 Fentanyl (Sublimaze) 200 mcg IV .STK-MED ONE Stop: 10/20/16 12:31 Furosemide (Lasix) 10 mg IVPUSH NOW ONE Stop: 10/25/16 21:32 Last Admin: 10/25/16 21:43 Dose: 10 mg Furosemide (Lasix) 10 mg IVPUSH NOW ONE Stop: 10/26/16 10:47 Last Admin: 10/26/16 11:06 Dose: 10 mg Glycopyrrolate (Robinul) 0.6 mg IV .STK-MED ONE Stop: 10/24/16 11:01 Glycopyrrolate (Robinul) 0.5 mg IV .STK-MED ONE Stop: 10/20/16 12:31 Lactated Ringer's (Ringers, Lactated) 1,000 mls @ 125 mls/hr IV ASDIRECTED [facility] Last Admin: 10/20/16 12:10 Dose: 125 mls/hr Cefoxitin Sodium 2 gm/ Sodium (Chloride) 100 mls @ 200 mls/hr IV ONETIME ONE Stop: 10/20/16 12:59 Last Admin: 10/20/16 12:20 Dose: 200 mls/hr Lactated Ringer's (Ringers, Lactated) 1,000 mls @ 75 mls/hr IV ASDIRECTED [facility] Last Admin: 10/24/16 14:42 Dose: 75 mls/hr Cefoxitin Sodium 1 gm/ Sodium (Chloride) 50 mls @ 100 mls/hr IV Q6H [facility] Stop: 10/22/16 07:29 Last Admin: 10/22/16 06:12 Dose: 100 mls/hr Promethazine HCl 25 mg/ Sodium (Chloride) 51 mls @ 200 mls/hr IV Q6H PRN PRN Reason: Nausea/Vomiting Last Admin: 10/27/16 07:43 Dose: 200 mls/hr Metronidazole (Flagyl 500 Mg In Ns 100 Ml) 100 mls @ 200 mls/hr IV ONETIME ONE Stop: 10/24/16 12:14 Last Admin: 10/24/16 11:51 Dose: 200 mls/hr Ciprofloxacin/Dextrose 400 mg/ (Premix) 200 mls @ 200 mls/hr IV ONETIME ONE Stop: 10/24/16 12:44 Last Admin: 10/24/16 11:46 Dose: 200 mls/hr Lactated Ringer's (Ringers, Lactated) 1,000 mls @ 0 mls/hr IV ASDIRECTED [facility] PRN Reason: KVO Ciprofloxacin/Dextrose 400 mg/ (Premix) 200 mls @ 200 mls/hr IV Q12H [facility] Metronidazole 500 mg/ Premix 100 mls @ 100 mls/hr IV Q8H [facility] Last Admin: 10/28/16 03:20 Dose: 100 mls/hr Ciprofloxacin/Dextrose 400 mg/ (Premix) 200 mls @ 200 mls/hr IV Q12H [facility] Last Admin: 10/26/16 23:43 Dose: 200 mls/hr Lactated Ringer's (Ringers, Lactated) 1,000 mls @ 125 mls/hr IV ASDIRECTED [facility] Last Admin: 10/25/16 10:54 Dose: 125 mls/hr Sodium Chloride (Normal Saline) 500 mls @ 500 mls/hr IV .BOLUS ONE Stop: 10/25/16 19:27 Last Admin: 10/25/16 18:35 Dose: 500 mls/hr Lactated Ringer's (Ringers, Lactated) 1,000 mls @ 100 mls/hr IV ASDIRECTED [facility] Last Admin: 10/27/16 01:56 Dose: 100 mls/hr Potassium Cl/Dextrose/Lact Ringer's (D5 Lr With 20 Meq Kcl) 1,000 mls @ 50 mls/ hr IV Q10H [facility] Stop: 10/29/16 21:59 Last Admin: 10/30/16 11:44 Dose: Not Given Ciprofloxacin/Dextrose 400 mg/ (Premix) 200 mls @ 200 mls/hr IV Q12H [facility] Last Admin: 10/28/16 00:18 Dose: 200 mls/hr Acetaminophen (Ofirmev) 100 mls @ as directed IV .STK-MED ONE Stop: 10/24/16 11:01 Lactated Ringer's (Ringers, Lactated) 1,000 mls @ as directed IV .STK-MED ONE Stop: 10/24/16 11:01 Lactated Ringer's (Ringers, Lactated) 1,000 mls @ as directed IV .STK-MED ONE Stop: 10/20/16 12:31 Potassium Cl/Dextrose/Lact Ringer's (D5 Lr With 20 Meq Kcl) 1,000 mls @ 50 mls/ hr IV Q20H [facility] Last Admin: 10/29/16 22:02 Dose: 50 mls/hr Iopamidol (Isovue-370 (76%)) 150 ml IV ONETIME ONE Stop: 10/24/16 09:40 Last Admin: 10/24/16 10:12 Dose: 150 ml Ketorolac Tromethamine (Toradol) 15 mg IVPUSH Q6H [facility] Stop: 10/25/16 15:20 Last Admin: 10/25/16 13:19 Dose: 15 mg Ketorolac Tromethamine (Toradol) 15 mg IVPUSH Q6H [facility] Stop: 10/29/16 10:34 Last Admin: 10/29/16 04:52 Dose: 15 mg Ketorolac Tromethamine (Toradol) 30 mg IVPUSH .STK-MED ONE Stop: 10/20/16 12:31 Labetalol HCl (Normodyne) 5 mg IV .STK-MED ONE Stop: 10/20/16 12:31 Metoclopramide HCl (Reglan) 10 mg IV Q6H [facility] Stop: 10/28/16 02:46 Last Admin: 10/28/16 03:20 Dose: 10 mg Midazolam HCl (Versed 1 Mg/Ml) 1 mg IV .STK-MED ONE Stop: 10/24/16 11:01 Midazolam HCl (Versed 1 Mg/Ml) 2 mg IV .STK-MED ONE Stop: 10/20/16 12:31 Morphine Sulfate (Morphine [employer] 30 Mg In 30 Ml) 0 mg IV ASDIRECTED PRN; Protocol PRN Reason: Pain (severe 7-10) Last Admin: 10/24/16 14:45 Dose: 30 mg Morphine Sulfate (Morphine) 2 mg IVPUSH Q3M PRN PRN Reason: Abdominal Pain Last Admin: 10/20/16 16:22 Dose: 2 mg Morphine Sulfate (Morphine) 1 mg IVPUSH Q5M PRN PRN Reason: Pain (moderate 4-6) Last Admin: 10/24/16 13:59 Dose: 1 mg Morphine Sulfate (Morphine) 2 mg IVPUSH ONETIME PRN PRN Reason: Pain (severe 7-10) Morphine Sulfate (Morphine [employer] 30 Mg In 30 Ml) 0 mg IV ASDIRECTED PRN; Protocol PRN Reason: Pain (severe 7-10) Last Admin: 10/27/16 10:10 Dose: 30 mg Morphine Sulfate (Morphine) 4 mg IVPUSH .STK-MED ONE Stop: 10/24/16 11:01 Naloxone HCl (Narcan) 0.2 mg IVPUSH Q1M PRN PRN Reason: Respiratory Depression Neostigmine Methylsulfate (Neostigmine Methylsulfate) 3 mg IVPUSH .STK-MED ONE Stop: 10/24/16 11:01 Neostigmine Methylsulfate (Neostigmine Methylsulfate) 5 mg IVPUSH .STK-MED ONE Stop: 10/20/16 12:31 Ondansetron HCl (Zofran) 4 mg IVPUSH ONETIME PRN PRN Reason: Nausea/Vomiting Ondansetron HCl (Zofran) 4 mg IVPUSH .STK-MED ONE Stop: 10/24/16 11:01 Ondansetron HCl (Zofran) 4 mg IVPUSH .STK-MED ONE Stop: 10/20/16 12:31 Pantoprazole Sodium (Protonix Iv) 40 mg IVPUSH DAILY@1600 [facility] Last Admin: 10/29/16 16:56 Dose: 40 mg Phenylephrine HCl (Doug-Synephrine) 0.1 mg IV .STK-MED ONE Stop: 10/24/16 11:01 Propofol (Diprivan 20 Ml) 200 mg IV .STK-MED ONE Stop: 10/24/16 11:01 Propofol (Diprivan 20 Ml) 150 mg IV .STK-MED ONE Stop: 10/20/16 12:31 Rocuronium [place] (Zemuron) 60 mg IV .STK-MED ONE Stop: 10/24/16 11:01 Rocuronium [place] (Zemuron) 80 mg IV .STK-MED ONE Stop: 10/20/16 12:31 Succinylcholine Chloride (Quelicin) 160 mg IV .STK-MED ONE Stop: 10/24/16 11:01 Succinylcholine Chloride (Quelicin) 100 mg IV .STK-MED ONE Stop: 10/20/16 12:31 - Exam General: Reports: Alert, Oriented Lungs: Reports: Clear to Auscultation GI/Abdominal Exam: Soft, Non-Tender *Q Meaningful Use (DIS) - VTE *Q VTE Criteria *Q: - Stroke *Q Stroke Criteria *Q: - AMI *Q AMI Criteria *Q:
== END 2016-10-31 12:10 | disposition home or self-care (01) | DRG 330 ==
LOC: FB.MS 11:06 → FB.ICU 10-24 14:08 → FB.MS 10-26 10:32
PROVIDERS: ADMIT Surgery; ATTEND Surgery
PROC: 0DTK0ZZ Resection of Ascending Colon, Open Approach (ICD-10-PCS; principal; 2016-10-20)
PROC: 0DQB0ZZ Repair Ileum, Open Approach (ICD-10-PCS; 2016-10-24)
DX: C18.2 Malignant neoplasm of ascending colon (principal); T82.338A Leakage of other vascular grafts, initial encounter; D64.9 Anemia, unspecified; Z85.51 Personal history of malignant neoplasm of bladder; Z85.46 Personal history of malignant neoplasm of prostate; G47.30 Sleep apnea, unspecified; Z88.0 Allergy status to penicillin; Z79.899 Other long term (current) drug therapy
CPT/HCPCS: 36415; 74177; 80048; 80053; 85025; 85027; 86850; 86900; 86901; 88309; 93005; 94150; A9270-GY; C9113; J0131; J0330; J0694; J0744; J1200; J1650; J1885; J1940; J2250; J2270; J2274; J2370; J2405; J2550; J2704; J2710; J2765; J3010; J3480; J7030; J7040; J7050; J7120; Q9967

== ENCOUNTER 2017-01-19 06:46 | Inpatient (IN) | payer MEDICARE, BC ==
[~2017-01-19 06:46] MED LIST: Lactated Ringers 1,000 ML IV SCH; Sodium Chloride 0.9% 10 ML Syringe FLUSH PRN
[2017-01-19] MEDS ORDERED: Ondansetron 4 MG/2 ML SDV IVPUSH ONE (08:00)
[2017-01-19] MEDS ORDERED: Succinylcholine 200 MG/10 ML MDV IV ONE (08:00)
[2017-01-19] MEDS ORDERED: Rocuronium 100 MG/10 ML MDV IV ONE (08:00)
[2017-01-19] MEDS ORDERED: Neostigmine Methylsulfate 10 MG/10 ML MDV IVPUSH ONE (08:00)
[2017-01-19] MEDS ORDERED: cefOXitin 2 GM in Sodium Chloride 0.9% 100 ML IV ONE (08:00)
[2017-01-19] MEDS ORDERED: Ketorolac 30 MG/ML SDV IVPUSH ONE (08:00)
[2017-01-19] MEDS ORDERED: Lactated Ringers 1,000 ML IV ONE (08:00)
[2017-01-19] MEDS ORDERED: Glycopyrrolate 0.2 MG/ML 5 ML MDV IV ONE (08:00)
[2017-01-19] MEDS ORDERED: fentaNYL 100 MCG/2 ML SDV IV ONE (08:00)
[2017-01-19] MEDS ORDERED: Midazolam 1 MG/ML 2 ML SDV IV ONE (08:00)
[2017-01-19] MEDS ORDERED: Lidocaine 2% 100 MG/5 ML Syringe IVPUSH ONE (08:00)
[2017-01-19] MEDS ORDERED: Propofol 200 MG/20 ML SDV IV ONE (08:00)
[2017-01-19] MEDS ORDERED: cefOXitin 2 GM Vial IV ONE (08:00)
--- NOTE | 2017-01-19 08:10 | PCM.HPR ---
H & P Addendum review - H & P Addendum Review Date of Original H & P: 01/02/17 Date Reviewed: 01/19/17 Time Reviewed: 08:00 Patient was Examined: No Changes
--- NOTE | 2017-01-19 09:58 | PCM.OPNOTE ---
- General Post-Op/Procedure Note Date of Surgery/Procedure: 01/19/17 Operative Procedure(s): Takedown loop ileostomy Pre Op Diagnosis: Colon cancer Post-Op Diagnosis: Same Anesthesia Technique: General ET Tube Primary Surgeon: Blake Johnson Anesthesia Provider: Nataly Timmons Wire Coating Operator Metal: Bruce Fink EBL in mLs: 10 Surgical Drain/Tube Type: Granite Complications: None Condition: Good
[2017-01-19] MEDS ORDERED: Acetaminophen/HYDROcodone 325-5 MG Tab PO PRN (10:00)
[2017-01-19] MEDS ORDERED: fentaNYL 100 MCG/2 ML SDV IVPUSH PRN (10:35)
[2017-01-19] MEDS: Morphine 2 MG/ML Syringe IVPUSH PRN ×2 (11:10→13:02)
[2017-01-19] MEDS: Lactated Ringers 1,000 ML IV SCH ×2 (11:15→19:27)
[2017-01-19] MEDS: Pantoprazole 40 MG Vial IVPUSH SCH (11:38)
[2017-01-19] MEDS: cefOXitin 1 GM Vial IV SCH ×2 (13:08→19:43)
[2017-01-19] MEDS ORDERED: Ketorolac 30 MG/ML SDV IVPUSH SCH (14:00)
--- NOTE | 2017-01-19 14:38 | OR ---
DATE OF OPERATION: 01/19/2017 SURGEON: Blake Johnson MD PREOPERATIVE DIAGNOSIS: History of colon cancer with diverting loop ileostomy. POSTOPERATIVE DIAGNOSIS: History of colon cancer with diverting loop ileostomy. PROCEDURE PERFORMED: Takedown of diverting loop ileostomy. SURGEON PARTNER: Bruce Fink MD. ANESTHESIA: General. DESCRIPTION OF PROCEDURE: The patient was brought to the operating room, where general endotracheal anesthesia was administered. Ostomy appliance was removed, skin cleansed and hair clipped. Ostomy was closed with running 3-0 chromic. ChloraPrep was used, and the area was prepped and draped sterilely. An elliptical incision was made around the ostomy site, and the bowel ends dissected circumferentially down into the peritoneal cavity, which was easily entered on its medial side. There were more adhesions laterally that were taken down with blunt and sharp dissection freeing up the loop circumferentially. The mesentery was transected at the level of the loop and each small bowel end transected with a BRIANNA 60 stapler. The mesentery was split slightly more to allow complete mobilization of the bowel ends. The bowel ends appeared healthy. A functional end-to-end anastomosis was then performed by using one application of the BRIANNA 60 stapler across the antimesenteric surfaces. The small bowel opening was then closed with a TA 60 stapler. Staple line was reinforced with interrupted #3-0 silk. The small mesenteric defect was closed with running 3-0 chromic. The bowel was delivered back into the peritoneal cavity. The abdomen was irrigated and return was clear and hemostasis was assured. The fascia was closed in 2 layers with running #2 Prolene at each layer. The subcutaneous tissue was irrigated and skin loosely reapproximated with a [place] drain exiting laterally. A sterile dressing was applied. The patient tolerated the procedure well. Blood losswas less than 10 mL. He returned to postanesthesia in a stable condition. /[id number] MARQUES/ELEAZAR
[2017-01-19] MEDS: Ketorolac 30 MG/ML SDV IVPUSH SCH ×2 (16:12→21:54)
[2017-01-19] MEDS ORDERED: Sodium Chloride 0.65% Nasal Spray 45 ML Bottle NAS PRN (19:47)
[2017-01-20] MEDS: cefOXitin 1 GM Vial IV SCH ×4 (01:58→20:03)
[2017-01-20] MEDS: Lactated Ringers 1,000 ML IV SCH ×3 (03:39→20:03)
[2017-01-20] MEDS: Ketorolac 30 MG/ML SDV IVPUSH SCH ×4 (03:39→22:00)
[2017-01-20] MEDS ORDERED: Sodium Chloride 0.9% 500 ML IV ONE (08:00)
[2017-01-20] MEDS: Pantoprazole 40 MG Vial IVPUSH SCH (08:16)
[2017-01-20] MEDS: Enoxaparin 40 MG/0.4 ML Syringe SUBCUT SCH (09:31)
[2017-01-21] MEDS: cefOXitin 1 GM Vial IV SCH (01:59)
[2017-01-21] MEDS: Ketorolac 30 MG/ML SDV IVPUSH SCH ×4 (04:06→21:49)
[2017-01-21] MEDS: Lactated Ringers 1,000 ML IV SCH ×3 (04:06→20:30)
--- NOTE | 2017-01-21 07:57 | PCM.SURGPN ---
- General Info Date of Service: 01/20/17 POD#: 1 Functional Status: Reports: Pain Controlled, Ambulating - Review of Systems General: Reports: No Symptoms Gastrointestinal: Reports: No Symptoms Genitourinary: Reports: No Symptoms - Patient Data Vitals - Most Recent: Last Vital Signs Temp 97.7 F 01/21/17 07:50 Pulse 72 01/21/17 07:50 Resp 18 01/21/17 07:50 BP 142/70 H 01/21/17 07:50 Pulse Ox 98 01/21/17 07:50 Weight - Most Recent: 118.841 kg I&O - Last 24 Hours: Intake & Output 01/20/17 01/21/17 01/21/17 22:59 06:59 14:59 Intake Total 1711 Output Total 375 Balance 1336 Lab Results Last 24 Hrs: Laboratory Results - last 24 hr 01/21/17 Range/Units 06:07 WBC 9.2 (4.5-12.0) X10-3/uL RBC 4.07 L (4.30-5.75) x10(6)uL Hgb 11.7 D (11.5-15.5) g/dL Hct 34.0 D (30.0-51.3) % MCV 83.4 (80-96) fL MCH 28.7 (27.7-33.6) pg MCHC 34.3 (32.2-35.4) g/dL RDW 23.0 H (11.5-15.5) % Plt Count 179 (125-369) X10(3)uL Med Orders - Current: Current Medications Hydrocodone Bitart/Acetaminophen ([place] 325-5 Mg) 1 tab PO Q4H PRN PRN Reason: Pain (mild 1-3) Enoxaparin Sodium (Lovenox) 40 mg SUBCUT DAILY [facility] Last Admin: 01/20/17 09:31 Dose: 40 mg Lactated Ringer's (Ringers, Lactated) 1,000 mls @ 125 mls/hr IV ASDIRECTED [facility] Last Admin: 01/21/17 04:06 Dose: 125 mls/hr Ketorolac Tromethamine (Toradol) 30 mg IVPUSH Q6H [facility] Stop: 01/24/17 16:01 Last Admin: 01/21/17 04:06 Dose: 30 mg Morphine Sulfate (Morphine) 2 mg IVPUSH Q1H PRN PRN Reason: Pain (severe 7-10) Last Admin: 01/19/17 13:02 Dose: 2 mg Pantoprazole Sodium (Protonix Iv) 40 mg IVPUSH DAILY [facility] Last Admin: 01/20/17 08:16 Dose: 40 mg Sodium Chloride (Saline Flush) 10 ml FLUSH ASDIRECTED PRN PRN Reason: Keep Vein Open Sodium Chloride ([place] Nasal [place]) 0 ml RONAK Q2H PRN PRN Reason: Nasal Dryness Discontinued Medications Cefoxitin Sodium (Mefoxin) 2 gm IV ONETIME ONE Stop: 01/19/17 08:01 Last Admin: 01/19/17 08:04 Dose: 2 gm Cefoxitin Sodium (Mefoxin) 1 gm IV Q6H [facility] Stop: 01/21/17 02:01 Last Admin: 01/21/17 01:59 Dose: 1 gm Fentanyl (Sublimaze) 25 mcg IVPUSH Q10M PRN PRN Reason: Abdominal Pain Fentanyl (Sublimaze) 225 mcg IV .STK-MED ONE Stop: 01/19/17 08:01 Glycopyrrolate (Robinul) 0.7 mg IV .STK-MED ONE Stop: 01/19/17 08:01 Lactated Ringer's (Ringers, Lactated) 1,000 mls @ 125 mls/hr IV ASDIRECTED [facility] Last Admin: 01/19/17 07:51 Dose: 125 mls/hr Cefoxitin Sodium 1 gm/ Sodium (Chloride) 50 mls @ 100 mls/hr IV Q6H [facility] Stop: 01/21/17 02:29 Sodium Chloride (Normal Saline) 500 mls @ 250 mls/hr IV .BOLUS ONE Stop: 01/20/17 09:59 Last Admin: 01/20/17 08:04 Dose: 250 mls/hr Acetaminophen (Ofirmev) 100 mls @ as directed IV .STK-MED ONE Stop: 01/19/17 08:01 Lactated Ringer's (Ringers, Lactated) 1,000 mls @ as directed IV .STK-MED ONE Stop: 01/19/17 08:01 Ketorolac Tromethamine (Toradol) 30 mg IVPUSH Q6H [facility] Stop: 01/24/17 14:01 Ketorolac Tromethamine (Toradol) 30 mg IVPUSH .STK-MED ONE Stop: 01/19/17 08:01 Lidocaine HCl (Xylocaine 2%) 40 mg IVPUSH .STK-MED ONE Stop: 01/19/17 08:01 Midazolam HCl (Versed 1 Mg/Ml) 1 mg IV .STK-MED ONE Stop: 01/19/17 08:01 Neostigmine Methylsulfate (Neostigmine Methylsulfate) 4 mg IVPUSH .STK-MED ONE Stop: 01/19/17 08:01 Ondansetron HCl (Zofran) 4 mg IVPUSH .STK-MED ONE Stop: 01/19/17 08:01 Propofol (Diprivan 20 Ml) 200 mg IV .STK-MED ONE Stop: 01/19/17 08:01 Rocuronium [place] (Zemuron) 25 mg IV .STK-MED ONE Stop: 01/19/17 08:01 Succinylcholine Chloride (Quelicin) 160 mg IV .STK-MED ONE Stop: 01/19/17 08:01 - Exam Wound/Incisions: Healing Well General: Alert, Oriented Lungs: Clear to Auscultation, Normal Respiratory Effort GI/Abdominal Exam: Soft, Non-Tender, No Distention - Problem List Review Problem List Initiated/Reviewed/Updated: Yes - My Orders Last 24 Hours: Active Orders 24 hr Category Date Time Status DC At[place] Catheter [Urinary Catheter Removal] [RC] Per Care 01/20/17 12:00 Active Unit Routine Enoxaparin [Lovenox] Med 01/20/17 09:00 Active 40 mg SUBCUT DAILY Medication Orders Hydrocodone Bitart/Acetaminophen ([place] 325-5 Mg) 1 tab PO Q4H PRN PRN Reason: Pain (mild 1-3) Enoxaparin Sodium (Lovenox) 40 mg SUBCUT DAILY [facility] Last Admin: 01/20/17 09:31 Dose: 40 mg Lactated Ringer's (Ringers, Lactated) 1,000 mls @ 125 mls/hr IV ASDIRECTED [facility] Last Admin: 01/21/17 04:06 Dose: 125 mls/hr Infusion: 01/21/17 04:03 Dose: 125 mls/hr Admin: 01/20/17 20:03 Dose: 125 mls/hr Infusion: 01/20/17 19:53 Dose: 125 mls/hr Admin: 01/20/17 11:53 Dose: 125 mls/hr Infusion: 01/20/17 11:39 Dose: 125 mls/hr Admin: 01/20/17 03:39 Dose: 125 mls/hr Infusion: 01/20/17 03:27 Dose: 125 mls/hr Admin: 01/19/17 19:27 Dose: 125 mls/hr Infusion: 01/19/17 19:15 Dose: 125 mls/hr Admin: 01/19/17 11:15 Dose: 125 mls/hr Ketorolac Tromethamine (Toradol) 30 mg IVPUSH Q6H [facility] Stop: 01/24/17 16:01 Last Admin: 01/21/17 04:06 Dose: 30 mg Admin: 01/20/17 22:00 Dose: 30 mg Admin: 01/20/17 15:58 Dose: 30 mg Admin: 01/20/17 10:28 Dose: 30 mg Admin: 01/20/17 03:39 Dose: 30 mg Admin: 01/19/17 21:54 Dose: 30 mg Admin: 01/19/17 16:12 Dose: 30 mg Morphine Sulfate (Morphine) 2 mg IVPUSH Q1H PRN PRN Reason: Pain (severe 7-10) Last Admin: 01/19/17 13:02 Dose: 2 mg Admin: 01/19/17 11:10 Dose: 2 mg Pantoprazole Sodium (Protonix Iv) 40 mg IVPUSH DAILY [facility] Last Admin: 01/20/17 08:16 Dose: 40 mg Admin: 01/19/17 11:38 Dose: 40 mg Sodium Chloride (Saline Flush) 10 ml FLUSH ASDIRECTED PRN PRN Reason: Keep Vein Open Sodium Chloride ([place] Nasal [place]) 0 ml RONAK Q2H PRN PRN Reason: Nasal Dryness - Assessment Assessment (Free Text/Narrative):: Doing well POD#1 - Plan Plan (Free Text/Narrative):: Cont as is D/C [place]
--- NOTE | 2017-01-21 07:58 | PCM.SURGPN ---
- General Info Date of Service: 01/21/17 POD#: 2 Functional Status: Reports: Pain Controlled, Ambulating, Urinating - Review of Systems General: Reports: No Symptoms Gastrointestinal: Reports: No Symptoms - Patient Data Vitals - Most Recent: Last Vital Signs Temp 97.7 F 01/21/17 07:50 Pulse 72 01/21/17 07:50 Resp 18 01/21/17 07:50 BP 142/70 H 01/21/17 07:50 Pulse Ox 98 01/21/17 07:50 Weight - Most Recent: 118.841 kg I&O - Last 24 Hours: Intake & Output 01/20/17 01/21/17 01/21/17 22:59 06:59 14:59 Intake Total 1711 Output Total 375 Balance 1336 Lab Results Last 24 Hrs: Laboratory Results - last 24 hr 01/21/17 Range/Units 06:07 WBC 9.2 (4.5-12.0) X10-3/uL RBC 4.07 L (4.30-5.75) x10(6)uL Hgb 11.7 D (11.5-15.5) g/dL Hct 34.0 D (30.0-51.3) % MCV 83.4 (80-96) fL MCH 28.7 (27.7-33.6) pg MCHC 34.3 (32.2-35.4) g/dL RDW 23.0 H (11.5-15.5) % Plt Count 179 (125-369) X10(3)uL Med Orders - Current: Current Medications Hydrocodone Bitart/Acetaminophen ([place] 325-5 Mg) 1 tab PO Q4H PRN PRN Reason: Pain (mild 1-3) Enoxaparin Sodium (Lovenox) 40 mg SUBCUT DAILY [facility] Last Admin: 01/20/17 09:31 Dose: 40 mg Lactated Ringer's (Ringers, Lactated) 1,000 mls @ 125 mls/hr IV ASDIRECTED [facility] Last Admin: 01/21/17 04:06 Dose: 125 mls/hr Ketorolac Tromethamine (Toradol) 30 mg IVPUSH Q6H [facility] Stop: 01/24/17 16:01 Last Admin: 01/21/17 04:06 Dose: 30 mg Morphine Sulfate (Morphine) 2 mg IVPUSH Q1H PRN PRN Reason: Pain (severe 7-10) Last Admin: 01/19/17 13:02 Dose: 2 mg Pantoprazole Sodium (Protonix Iv) 40 mg IVPUSH DAILY [facility] Last Admin: 01/20/17 08:16 Dose: 40 mg Sodium Chloride (Saline Flush) 10 ml FLUSH ASDIRECTED PRN PRN Reason: Keep Vein Open Sodium Chloride ([place] Nasal [place]) 0 ml RONAK Q2H PRN PRN Reason: Nasal Dryness Discontinued Medications Cefoxitin Sodium (Mefoxin) 2 gm IV ONETIME ONE Stop: 01/19/17 08:01 Last Admin: 01/19/17 08:04 Dose: 2 gm Cefoxitin Sodium (Mefoxin) 1 gm IV Q6H [facility] Stop: 01/21/17 02:01 Last Admin: 01/21/17 01:59 Dose: 1 gm Fentanyl (Sublimaze) 25 mcg IVPUSH Q10M PRN PRN Reason: Abdominal Pain Fentanyl (Sublimaze) 225 mcg IV .STK-MED ONE Stop: 01/19/17 08:01 Glycopyrrolate (Robinul) 0.7 mg IV .STK-MED ONE Stop: 01/19/17 08:01 Lactated Ringer's (Ringers, Lactated) 1,000 mls @ 125 mls/hr IV ASDIRECTED [facility] Last Admin: 01/19/17 07:51 Dose: 125 mls/hr Cefoxitin Sodium 1 gm/ Sodium (Chloride) 50 mls @ 100 mls/hr IV Q6H [facility] Stop: 01/21/17 02:29 Sodium Chloride (Normal Saline) 500 mls @ 250 mls/hr IV .BOLUS ONE Stop: 01/20/17 09:59 Last Admin: 01/20/17 08:04 Dose: 250 mls/hr Acetaminophen (Ofirmev) 100 mls @ as directed IV .STK-MED ONE Stop: 01/19/17 08:01 Lactated Ringer's (Ringers, Lactated) 1,000 mls @ as directed IV .STK-MED ONE Stop: 01/19/17 08:01 Ketorolac Tromethamine (Toradol) 30 mg IVPUSH Q6H [facility] Stop: 01/24/17 14:01 Ketorolac Tromethamine (Toradol) 30 mg IVPUSH .STK-MED ONE Stop: 01/19/17 08:01 Lidocaine HCl (Xylocaine 2%) 40 mg IVPUSH .STK-MED ONE Stop: 01/19/17 08:01 Midazolam HCl (Versed 1 Mg/Ml) 1 mg IV .STK-MED ONE Stop: 01/19/17 08:01 Neostigmine Methylsulfate (Neostigmine Methylsulfate) 4 mg IVPUSH .STK-MED ONE Stop: 01/19/17 08:01 Ondansetron HCl (Zofran) 4 mg IVPUSH .STK-MED ONE Stop: 01/19/17 08:01 Propofol (Diprivan 20 Ml) 200 mg IV .STK-MED ONE Stop: 01/19/17 08:01 Rocuronium [place] (Zemuron) 25 mg IV .STK-MED ONE Stop: 01/19/17 08:01 Succinylcholine Chloride (Quelicin) 160 mg IV .STK-MED ONE Stop: 01/19/17 08:01 - Exam Wound/Incisions: Healing Well General: Alert, Oriented Lungs: Clear to Auscultation GI/Abdominal Exam: Soft, Non-Tender - Problem List Review Problem List Initiated/Reviewed/Updated: Yes - My Orders Last 24 Hours: Active Orders 24 hr Category Date Time Status DC [place] Catheter [Urinary Catheter Removal] [RC] Per Care 01/20/17 12:00 Active Unit Routine Enoxaparin [Lovenox] Med 01/20/17 09:00 Active 40 mg SUBCUT DAILY Medication Orders Hydrocodone Bitart/Acetaminophen ([place] 325-5 Mg) 1 tab PO Q4H PRN PRN Reason: Pain (mild 1-3) Enoxaparin Sodium (Lovenox) 40 mg SUBCUT DAILY [facility] Last Admin: 01/20/17 09:31 Dose: 40 mg Lactated Ringer's (Ringers, Lactated) 1,000 mls @ 125 mls/hr IV ASDIRECTED [facility] Last Admin: 01/21/17 04:06 Dose: 125 mls/hr Infusion: 01/21/17 04:03 Dose: 125 mls/hr Admin: 01/20/17 20:03 Dose: 125 mls/hr Infusion: 01/20/17 19:53 Dose: 125 mls/hr Admin: 01/20/17 11:53 Dose: 125 mls/hr Infusion: 01/20/17 11:39 Dose: 125 mls/hr Admin: 01/20/17 03:39 Dose: 125 mls/hr Infusion: 01/20/17 03:27 Dose: 125 mls/hr Admin: 01/19/17 19:27 Dose: 125 mls/hr Infusion: 01/19/17 19:15 Dose: 125 mls/hr Admin: 01/19/17 11:15 Dose: 125 mls/hr Ketorolac Tromethamine (Toradol) 30 mg IVPUSH Q6H [place] Stop: 01/24/17 16:01 Last Admin: 01/21/17 04:06 Dose: 30 mg Admin: 01/20/17 22:00 Dose: 30 mg Admin: 01/20/17 15:58 Dose: 30 mg Admin: 01/20/17 10:28 Dose: 30 mg Admin: 01/20/17 03:39 Dose: 30 mg Admin: 01/19/17 21:54 Dose: 30 mg Admin: 01/19/17 16:12 Dose: 30 mg Morphine Sulfate (Morphine) 2 mg IVPUSH Q1H PRN PRN Reason: Pain (severe 7-10) Last Admin: 01/19/17 13:02 Dose: 2 mg Admin: 01/19/17 11:10 Dose: 2 mg Pantoprazole Sodium (Protonix Iv) 40 mg IVPUSH DAILY [facility] Last Admin: 01/20/17 08:16 Dose: 40 mg Admin: 01/19/17 11:38 Dose: 40 mg Sodium Chloride (Saline Flush) 10 ml FLUSH ASDIRECTED PRN PRN Reason: Keep Vein Open Sodium Chloride ([place] Nasal [place]) 0 ml RONAK Q2H PRN PRN Reason: Nasal Dryness - Assessment Assessment (Free Text/Narrative):: Doing Well POD #2 - Plan Plan (Free Text/Narrative):: Cont as is
[2017-01-21] MEDS: Enoxaparin 40 MG/0.4 ML Syringe SUBCUT SCH (09:23)
[2017-01-21] MEDS: Pantoprazole 40 MG Vial IVPUSH SCH (09:54)
[2017-01-22] MEDS: Lactated Ringers 1,000 ML IV SCH ×2 (04:24→14:35)
[2017-01-22] MEDS: Ketorolac 30 MG/ML SDV IVPUSH SCH ×2 (04:25→10:17)
[2017-01-22] MEDS ORDERED: Ketorolac 30 MG/ML SDV IVPUSH PRN (10:15)
[2017-01-22] MEDS: Enoxaparin 40 MG/0.4 ML Syringe SUBCUT SCH (10:16)
[2017-01-22] MEDS: Pantoprazole 40 MG Vial IVPUSH SCH (10:17)
--- NOTE | 2017-01-22 10:19 | PCM.SURGPN ---
- General Info Date of Service: 01/22/17 POD#: 3 Functional Status: Reports: Pain Controlled - Review of Systems General: Reports: No Symptoms Gastrointestinal: Reports: Flatus (and stools since yesterday am) - Patient Data Vitals - Most Recent: Last Vital Signs Temp 98.1 F 01/22/17 04:30 Pulse 68 01/22/17 04:30 Resp 20 01/22/17 04:30 BP 144/70 H 01/22/17 04:30 Pulse Ox 98 01/22/17 09:07 Weight - Most Recent: 118.841 kg I&O - Last 24 Hours: Intake & Output 01/21/17 01/22/17 01/22/17 22:59 06:59 14:59 Intake Total 1810 990 Balance 1810 990 Med Orders - Current: Current Medications Hydrocodone Bitart/Acetaminophen ([place] 325-5 Mg) 1 tab PO Q4H PRN PRN Reason: Pain (mild 1-3) Enoxaparin Sodium (Lovenox) 40 mg SUBCUT DAILY [facility] Last Admin: 01/22/17 10:16 Dose: 40 mg Lactated Ringer's (Ringers, Lactated) 1,000 mls @ 75 mls/hr IV ASDIRECTED [facility] Ketorolac Tromethamine (Toradol) 30 mg IVPUSH Q6H PRN PRN Reason: Abdominal Pain Stop: 01/27/17 10:16 Metoprolol Tartrate (Lopressor) 25 mg PO BID [facility] Pantoprazole Sodium (Protonix Iv) 40 mg IVPUSH DAILY [facility] Last Admin: 01/22/17 10:17 Dose: 40 mg Sodium Chloride (Saline Flush) 10 ml FLUSH ASDIRECTED PRN PRN Reason: Keep Vein Open Sodium Chloride ([place] Nasal [place]) 0 ml RONAK Q2H PRN PRN Reason: Nasal Dryness Discontinued Medications Cefoxitin Sodium (Mefoxin) 2 gm IV ONETIME ONE Stop: 01/19/17 08:01 Last Admin: 01/19/17 08:04 Dose: 2 gm Cefoxitin Sodium (Mefoxin) 1 gm IV Q6H [facility] Stop: 01/21/17 02:01 Last Admin: 01/21/17 01:59 Dose: 1 gm Fentanyl (Sublimaze) 25 mcg IVPUSH Q10M PRN PRN Reason: Abdominal Pain Fentanyl (Sublimaze) 225 mcg IV .STK-MED ONE Stop: 01/19/17 08:01 Glycopyrrolate (Robinul) 0.7 mg IV .STK-MED ONE Stop: 01/19/17 08:01 Lactated Ringer's (Ringers, Lactated) 1,000 mls @ 125 mls/hr IV ASDIRECTED [facility] Last Admin: 01/19/17 07:51 Dose: 125 mls/hr Cefoxitin Sodium 1 gm/ Sodium (Chloride) 50 mls @ 100 mls/hr IV Q6H [facility] Stop: 01/21/17 02:29 Lactated Ringer's (Ringers, Lactated) 1,000 mls @ 125 mls/hr IV ASDIRECTED [facility] Last Admin: 01/22/17 04:24 Dose: 125 mls/hr Sodium Chloride (Normal Saline) 500 mls @ 250 mls/hr IV .BOLUS ONE Stop: 01/20/17 09:59 Last Admin: 01/20/17 08:04 Dose: 250 mls/hr Acetaminophen (Ofirmev) 100 mls @ as directed IV .STK-MED ONE Stop: 01/19/17 08:01 Lactated Ringer's (Ringers, Lactated) 1,000 mls @ as directed IV .STK-MED ONE Stop: 01/19/17 08:01 Ketorolac Tromethamine (Toradol) 30 mg IVPUSH Q6H [facility] Stop: 01/24/17 14:01 Ketorolac Tromethamine (Toradol) 30 mg IVPUSH Q6H [facility] Stop: 01/24/17 16:01 Last Admin: 01/22/17 04:25 Dose: 30 mg Ketorolac Tromethamine (Toradol) 30 mg IVPUSH .STK-MED ONE Stop: 01/19/17 08:01 Lidocaine HCl (Xylocaine 2%) 40 mg IVPUSH .STK-MED ONE Stop: 01/19/17 08:01 Midazolam HCl (Versed 1 Mg/Ml) 1 mg IV .STK-MED ONE Stop: 01/19/17 08:01 Morphine Sulfate (Morphine) 2 mg IVPUSH Q1H PRN PRN Reason: Pain (severe 7-10) Last Admin: 01/19/17 13:02 Dose: 2 mg Neostigmine Methylsulfate (Neostigmine Methylsulfate) 4 mg IVPUSH .STK-MED ONE Stop: 01/19/17 08:01 Ondansetron HCl (Zofran) 4 mg IVPUSH .STK-MED ONE Stop: 01/19/17 08:01 Propofol (Diprivan 20 Ml) 200 mg IV .STK-MED ONE Stop: 01/19/17 08:01 Rocuronium [place] (Zemuron) 25 mg IV .STK-MED ONE Stop: 01/19/17 08:01 Succinylcholine Chloride (Quelicin) 160 mg IV .STK-MED ONE Stop: 01/19/17 08:01 - Exam Wound/Incisions: Healing Well GI/Abdominal Exam: Soft, Non-Tender - Problem List Review Problem List Initiated/Reviewed/Updated: Yes - My Orders Last 24 Hours: Active Orders 24 hr Category Date Time Status Clear Liquid Diet [DIET] Diet 01/22/17 Lunch Active Ketorolac [Toradol] Med 01/22/17 10:15 Ordered 30 mg IVPUSH Q6H PRN Lactated Ringers [Ringers, Lactated] 1,000 ml Med 01/22/17 08:26 Active IV ASDIRECTED Metoprolol Tartrate [Lopressor] Med 01/22/17 21:00 Ordered 25 mg PO BID Medication Orders Hydrocodone Bitart/Acetaminophen ([place] 325-5 Mg) 1 tab PO Q4H PRN PRN Reason: Pain (mild 1-3) Enoxaparin Sodium (Lovenox) 40 mg SUBCUT DAILY [facility] Last Admin: 01/22/17 10:16 Dose: 40 mg Admin: 01/21/17 09:23 Dose: 40 mg Admin: 01/20/17 09:31 Dose: 40 mg Lactated Ringer's (Ringers, Lactated) 1,000 mls @ 75 mls/hr IV ASDIRECTED [facility] Ketorolac Tromethamine (Toradol) 30 mg IVPUSH Q6H PRN PRN Reason: Abdominal Pain Stop: 01/27/17 10:16 Metoprolol Tartrate (Lopressor) 25 mg PO BID [facility] Pantoprazole Sodium (Protonix Iv) 40 mg IVPUSH DAILY [facility] Last Admin: 01/22/17 10:17 Dose: 40 mg Admin: 01/21/17 09:54 Dose: 40 mg Admin: 01/20/17 08:16 Dose: 40 mg Admin: 01/19/17 11:38 Dose: 40 mg Sodium Chloride (Saline Flush) 10 ml FLUSH ASDIRECTED PRN PRN Reason: Keep Vein Open Sodium Chloride ([place] Nasal [place]) 0 ml RONAK Q2H PRN PRN Reason: Nasal Dryness - Assessment Assessment (Free Text/Narrative):: Doing well - Plan Plan (Free Text/Narrative):: Start liquids D/C jr
[2017-01-22] MEDS: Metoprolol Tartrate 25 MG Tab PO SCH (20:05)
[2017-01-23] MEDS: Lactated Ringers 1,000 ML IV SCH (04:11)
[2017-01-23 08:48] VITALS: BP 145/85
[2017-01-23] MEDS: Metoprolol Tartrate 25 MG Tab PO SCH (08:48)
[2017-01-23] MEDS: Pantoprazole 40 MG Vial IVPUSH SCH ×2 (08:48→09:46)
[2017-01-23] MEDS: Enoxaparin 40 MG/0.4 ML Syringe SUBCUT SCH (08:48)
--- NOTE | 2017-01-23 12:15 | PCM.SURGPN ---
- General Info Date of Service: 01/23/17 POD#: 4 Functional Status: Reports: Pain Controlled, Tolerating Diet, Ambulating, Urinating - Review of Systems General: Reports: No Symptoms Gastrointestinal: Reports: Other (several loose stools) - Patient Data Vitals - Most Recent: Last Vital Signs Temp 97.7 F 01/23/17 04:39 Pulse 61 01/23/17 08:48 Resp 16 01/23/17 04:39 BP 145/85 H 01/23/17 08:48 Pulse Ox 97 01/23/17 04:39 Weight - Most Recent: 118.841 kg I&O - Last 24 Hours: Intake & Output 01/22/17 01/23/17 01/23/17 22:59 06:59 14:59 Intake Total 574 805 Output Total 700 1100 500 Balance -126 -295 -500 Med Orders - Current: Current Medications Hydrocodone Bitart/Acetaminophen ([place] 325-5 Mg) 1 tab PO Q4H PRN PRN Reason: Pain (mild 1-3) Enoxaparin Sodium (Lovenox) 40 mg SUBCUT DAILY [facility] Last Admin: 01/23/17 08:48 Dose: 40 mg Lactated Ringer's (Ringers, Lactated) 1,000 mls @ 75 mls/hr IV ASDIRECTED [facility] Last Admin: 01/23/17 04:11 Dose: 75 mls/hr Ketorolac Tromethamine (Toradol) 30 mg IVPUSH Q6H PRN PRN Reason: Abdominal Pain Stop: 01/27/17 10:16 Last Admin: 01/22/17 20:05 Dose: 30 mg Metoprolol Tartrate (Lopressor) 25 mg PO BID [facility] Last Admin: 01/23/17 08:48 Dose: 25 mg Pantoprazole Sodium (Protonix Iv) 40 mg IVPUSH DAILY [facility] Last Admin: 01/23/17 09:46 Dose: Not Given Sodium Chloride (Saline Flush) 10 ml FLUSH ASDIRECTED PRN PRN Reason: Keep Vein Open Sodium Chloride ([place] Nasal [place]) 0 ml RONAK Q2H PRN PRN Reason: Nasal Dryness Discontinued Medications Cefoxitin Sodium (Mefoxin) 2 gm IV ONETIME ONE Stop: 01/19/17 08:01 Last Admin: 01/19/17 08:04 Dose: 2 gm Cefoxitin Sodium (Mefoxin) 1 gm IV Q6H [facility] Stop: 01/21/17 02:01 Last Admin: 01/21/17 01:59 Dose: 1 gm Fentanyl (Sublimaze) 25 mcg IVPUSH Q10M PRN PRN Reason: Abdominal Pain Fentanyl (Sublimaze) 225 mcg IV .STK-MED ONE Stop: 01/19/17 08:01 Glycopyrrolate (Robinul) 0.7 mg IV .STK-MED ONE Stop: 01/19/17 08:01 Lactated Ringer's (Ringers, Lactated) 1,000 mls @ 125 mls/hr IV ASDIRECTED [facility] Last Admin: 01/19/17 07:51 Dose: 125 mls/hr Cefoxitin Sodium 1 gm/ Sodium (Chloride) 50 mls @ 100 mls/hr IV Q6H [facility] Stop: 01/21/17 02:29 Lactated Ringer's (Ringers, Lactated) 1,000 mls @ 125 mls/hr IV ASDIRECTED [facility] Last Admin: 01/22/17 04:24 Dose: 125 mls/hr Sodium Chloride (Normal Saline) 500 mls @ 250 mls/hr IV .BOLUS ONE Stop: 01/20/17 09:59 Last Admin: 01/20/17 08:04 Dose: 250 mls/hr Acetaminophen (Ofirmev) 100 mls @ as directed IV .STK-MED ONE Stop: 01/19/17 08:01 Lactated Ringer's (Ringers, Lactated) 1,000 mls @ as directed IV .STK-MED ONE Stop: 01/19/17 08:01 Ketorolac Tromethamine (Toradol) 30 mg IVPUSH Q6H [facility] Stop: 01/24/17 14:01 Ketorolac Tromethamine (Toradol) 30 mg IVPUSH Q6H [facility] Stop: 01/24/17 16:01 Last Admin: 01/22/17 10:17 Dose: Not Given Ketorolac Tromethamine (Toradol) 30 mg IVPUSH .STK-MED ONE Stop: 01/19/17 08:01 Lidocaine HCl (Xylocaine 2%) 40 mg IVPUSH .STK-MED ONE Stop: 01/19/17 08:01 Midazolam HCl (Versed 1 Mg/Ml) 1 mg IV .STK-MED ONE Stop: 01/19/17 08:01 Morphine Sulfate (Morphine) 2 mg IVPUSH Q1H PRN PRN Reason: Pain (severe 7-10) Last Admin: 01/19/17 13:02 Dose: 2 mg Neostigmine Methylsulfate (Neostigmine Methylsulfate) 4 mg IVPUSH .STK-MED ONE Stop: 01/19/17 08:01 Ondansetron HCl (Zofran) 4 mg IVPUSH .STK-MED ONE Stop: 01/19/17 08:01 Propofol (Diprivan 20 Ml) 200 mg IV .STK-MED ONE Stop: 01/19/17 08:01 Rocuronium [place] (Zemuron) 25 mg IV .STK-MED ONE Stop: 01/19/17 08:01 Succinylcholine Chloride (Quelicin) 160 mg IV .STK-MED ONE Stop: 01/19/17 08:01 - Exam Wound/Incisions: Healing Well General: Alert, Oriented Lungs: Clear to Auscultation, Normal Respiratory Effort GI/Abdominal Exam: Soft, Non-Tender - Problem List Review Problem List Initiated/Reviewed/Updated: Yes - My Orders Last 24 Hours: Active Orders 24 hr Category Date Time Status Ready for Discharge [RC] PER UNIT ROUTINE Care 01/23/17 12:13 Ordered Full Liquid Diet [DIET] Diet 01/23/17 Breakfast Active Metoprolol Tartrate [Lopressor] Med 01/22/17 21:00 Active 25 mg PO BID Medication Orders Hydrocodone Bitart/Acetaminophen ([place] 325-5 Mg) 1 tab PO Q4H PRN PRN Reason: Pain (mild 1-3) Enoxaparin Sodium (Lovenox) 40 mg SUBCUT DAILY [facility] Last Admin: 01/23/17 08:48 Dose: 40 mg Admin: 01/22/17 10:16 Dose: 40 mg Admin: 01/21/17 09:23 Dose: 40 mg Admin: 01/20/17 09:31 Dose: 40 mg Lactated Ringer's (Ringers, Lactated) 1,000 mls @ 75 mls/hr IV ASDIRECTED [facility] Last Admin: 01/23/17 04:11 Dose: 75 mls/hr Infusion: 01/23/17 03:55 Dose: 75 mls/hr Admin: 01/22/17 14:35 Dose: 75 mls/hr Ketorolac Tromethamine (Toradol) 30 mg IVPUSH Q6H PRN PRN Reason: Abdominal Pain Stop: 01/27/17 10:16 Last Admin: 01/22/17 20:05 Dose: 30 mg Metoprolol Tartrate (Lopressor) 25 mg PO BID [facility] Last Admin: 01/23/17 08:48 Dose: 25 mg Admin: 01/22/17 20:05 Dose: 25 mg Pantoprazole Sodium (Protonix Iv) 40 mg IVPUSH DAILY [facility] Last Admin: 01/23/17 09:46 Dose: Admin: 01/22/17 10:17 Dose: 40 mg Admin: 01/21/17 09:54 Dose: 40 mg Admin: 01/20/17 08:16 Dose: 40 mg Admin: 01/19/17 11:38 Dose: 40 mg Sodium Chloride (Saline Flush) 10 ml FLUSH ASDIRECTED PRN PRN Reason: Keep Vein Open Sodium Chloride ([place] Nasal [place]) 0 ml RONAK Q2H PRN PRN Reason: Nasal Dryness - Assessment Assessment (Free Text/Narrative):: Doing well - Plan Plan (Free Text/Narrative):: Discharge to home
--- NOTE | 2017-01-23 12:18 | PCM.DCSUM1 ---
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 Here for takedown ileostomy. Post op did well with bowel function returning on POD #2. Is tolerating diet and ready for discharge - Discharge Data Discharge Date: 01/23/17 Discharge Disposition: Home, Self-Care 01 Condition: Good - Patient Summary/Data Operative Procedure(s) Performed: Takedown loop ileostomy - Patient Instructions Diet: Usual Diet as Tolerated Activity: No Lifting Over 20 Pounds (for 4 weeks) Driving: Do Not Drive (for 1 week) Showering/Bathing: June Shower Wound/Incision Care: Keep Operative Site/Wound Site Clean and Dry - Discharge Plan Home Medications: Home Meds Esomeprazole [NexIUM] 20 mg PO DAILY 11/14/12 [History] Metoprolol Tartrate 25 mg PO BID 11/14/12 [History] Fesoterodine Fumarate [Toviaz] 4 mg PO DAILY 10/10/16 [History] Fluticasone Propionate [Flonase Allergy Relief] 2 sprays NS DAILY PRN 10/13/16 [ History] Iron,Carbonyl/Ascorbic Acid [Iron 100-Vitamin C Tablet] 1 each PO DAILY [History] Multivitamin with Minerals [Multiple Vitamin] 1 tab PO DAILY 01/16/17 [History] Patient Handouts: Venous Thromboembolism Prevention Referrals: Blake Johnson MD [Physician] - (f/u next Thu or for staple removal) - Patient Data Vitals - Most Recent: Last Vital Signs Temp 97.7 F 01/23/17 04:39 Pulse 61 01/23/17 08:48 Resp 16 01/23/17 04:39 BP 145/85 H 01/23/17 08:48 Pulse Ox 97 01/23/17 04:39 Weight - Most Recent: 118.841 kg I&O - Last 24 hours: Intake & Output 01/22/17 01/23/17 01/23/17 22:59 06:59 14:59 Intake Total 574 805 Output Total 700 1100 500 Balance -126 -295 -500 Med Orders - Current: Current Medications Hydrocodone Bitart/Acetaminophen ([place] 325-5 Mg) 1 tab PO Q4H PRN PRN Reason: Pain (mild 1-3) Enoxaparin Sodium (Lovenox) 40 mg SUBCUT DAILY [facility] Last Admin: 01/23/17 08:48 Dose: 40 mg Lactated Ringer's (Ringers, Lactated) 1,000 mls @ 75 mls/hr IV ASDIRECTED [facility] Last Admin: 01/23/17 04:11 Dose: 75 mls/hr Ketorolac Tromethamine (Toradol) 30 mg IVPUSH Q6H PRN PRN Reason: Abdominal Pain Stop: 01/27/17 10:16 Last Admin: 01/22/17 20:05 Dose: 30 mg Metoprolol Tartrate (Lopressor) 25 mg PO BID [facility] Last Admin: 01/23/17 08:48 Dose: 25 mg Pantoprazole Sodium (Protonix Iv) 40 mg IVPUSH DAILY [facility] Last Admin: 01/23/17 09:46 Dose: Not Given Sodium Chloride (Saline Flush) 10 ml FLUSH ASDIRECTED PRN PRN Reason: Keep Vein Open Sodium Chloride ([place] Nasal [place]) 0 ml RONAK Q2H PRN PRN Reason: Nasal Dryness Discontinued Medications Cefoxitin Sodium (Mefoxin) 2 gm IV ONETIME ONE Stop: 01/19/17 08:01 Last Admin: 01/19/17 08:04 Dose: 2 gm Cefoxitin Sodium (Mefoxin) 1 gm IV Q6H [facility] Stop: 01/21/17 02:01 Last Admin: 01/21/17 01:59 Dose: 1 gm Fentanyl (Sublimaze) 25 mcg IVPUSH Q10M PRN PRN Reason: Abdominal Pain Fentanyl (Sublimaze) 225 mcg IV .STK-MED ONE Stop: 01/19/17 08:01 Glycopyrrolate (Robinul) 0.7 mg IV .STK-MED ONE Stop: 01/19/17 08:01 Lactated Ringer's (Ringers, Lactated) 1,000 mls @ 125 mls/hr IV ASDIRECTED [facility] Last Admin: 01/19/17 07:51 Dose: 125 mls/hr Cefoxitin Sodium 1 gm/ Sodium (Chloride) 50 mls @ 100 mls/hr IV Q6H [facility] Stop: 01/21/17 02:29 Lactated Ringer's (Ringers, Lactated) 1,000 mls @ 125 mls/hr IV ASDIRECTED [facility] Last Admin: 01/22/17 04:24 Dose: 125 mls/hr Sodium Chloride (Normal Saline) 500 mls @ 250 mls/hr IV .BOLUS ONE Stop: 01/20/17 09:59 Last Admin: 01/20/17 08:04 Dose: 250 mls/hr Acetaminophen (Ofirmev) 100 mls @ as directed IV .STK-MED ONE Stop: 01/19/17 08:01 Lactated Ringer's (Ringers, Lactated) 1,000 mls @ as directed IV .STK-MED ONE Stop: 01/19/17 08:01 Ketorolac Tromethamine (Toradol) 30 mg IVPUSH Q6H [facility] Stop: 01/24/17 14:01 Ketorolac Tromethamine (Toradol) 30 mg IVPUSH Q6H [facility] Stop: 01/24/17 16:01 Last Admin: 01/22/17 10:17 Dose: Not Given Ketorolac Tromethamine (Toradol) 30 mg IVPUSH .STK-MED ONE Stop: 01/19/17 08:01 Lidocaine HCl (Xylocaine 2%) 40 mg IVPUSH .STK-MED ONE Stop: 01/19/17 08:01 Midazolam HCl (Versed 1 Mg/Ml) 1 mg IV .STK-MED ONE Stop: 01/19/17 08:01 Morphine Sulfate (Morphine) 2 mg IVPUSH Q1H PRN PRN Reason: Pain (severe 7-10) Last Admin: 01/19/17 13:02 Dose: 2 mg Neostigmine Methylsulfate (Neostigmine Methylsulfate) 4 mg IVPUSH .STK-MED ONE Stop: 01/19/17 08:01 Ondansetron HCl (Zofran) 4 mg IVPUSH .STK-MED ONE Stop: 01/19/17 08:01 Propofol (Diprivan 20 Ml) 200 mg IV .STK-MED ONE Stop: 01/19/17 08:01 Rocuronium [place] (Zemuron) 25 mg IV .STK-MED ONE Stop: 01/19/17 08:01 Succinylcholine Chloride (Quelicin) 160 mg IV .STK-MED ONE Stop: 01/19/17 08:01 *Q Meaningful Use (DIS) - VTE *Q VTE Criteria *Q: - Stroke *Q Stroke Criteria *Q: - AMI *Q AMI Criteria *Q:
== END 2017-01-23 13:00 | disposition home or self-care (01) | DRG 331 ==
LOC: FB.MS 06:46
PROVIDERS: ADMIT Surgery; ATTEND Surgery
PROC: 0DSB0ZZ Reposition Ileum, Open Approach (ICD-10-PCS; principal; 2017-01-19)
DX: Z43.2 Encounter for attention to ileostomy (principal); Z85.038 Personal history of other malignant neoplasm of large intestine; Z90.49 Acquired absence of other specified parts of digestive tract; Z88.0 Allergy status to penicillin
CPT/HCPCS: 36415; 80048; 85027; 94150; A9270-GY; C9113; J0131; J0330; J0694; J1650; J1885; J2250; J2270; J2405; J2704; J2710; J3010; J7040; J7120

== ENCOUNTER 2022-08-26 09:17 | Emergency (ER) | payer MEDICARE, BC ==
[2022-08-26 10:08] LABS: HEMATOCRIT 39.6 % (38.3-50.1); HEMOGLOBIN 12.9 g/dL (12.9-17.7); MEAN CORPUSCULAR HEMOGLOBIN 29.7 pg (27.0-33.3); MEAN CORPUSCULAR HGB CONC 32.7 g/dL (28.7-35.3); MEAN CORPUSCULAR VOLUME 90.9 fL (80.8-98.7); MEAN PLATELET VOLUME 9.5 fL (6.7-11.0); PLATELET COUNT,PLT 234 x10(3)uL (117-477); RED BLOOD CELL COUNT 4.35 x10(6)uL (3.90-5.90); RED CELL DISTRIBUTION WIDTH 14.7 % (12.4-15.0); WHITE BLOOD CELL COUNT,WBC 16.8 x10-3/uL (3.2-10.1)
[2022-08-26 10:10] LABS: BLOOD UREA NITROGEN,BUN 27 mg/dL (7-18); BUN/CREATININE RATIO 19.3 (9-20); CALCIUM 9.7 mg/dL (8.6-10.2); CARBON DIOXIDE,CO2 22 mmol/L (21-32); CHLORIDE,CL 103 mmol/L (100-110); CREATININE 1.4 mg/dL (0.70-1.30); EST CRCL DRUG DOSING (CG) 34.17 mL/min; ESTIMATED GFR 50 mL/min (>60); GLUCOSE RANDOM 271 mg/dL (80-116); POTASSIUM,K 4.2 mmol/L (3.5-5.3); SODIUM,NA 136 mmol/L (135-145)
[2022-08-26 10:16] LABS: A/G RATIO 0.9; ALANINE AMINOTRANSFERASE,ALT 25 U/L (12-36); ALBUMIN 3.3 g/dL (3.2-4.6); ALKALINE PHOSPHATASE 78 IU/L (56-112); ASPARTATE AMNIOTRANSFERASE,AST 14 IU/L (5-25); BILIRUBIN TOTAL 0.4 mg/dL (0.1-1.3); PROTEIN TOTAL,TP 6.8 g/dL (6.0-8.0)
[2022-08-26 10:17] LABS: LYMPHOCYTES PERCENT MAN 9 % (13-37); MONOCYTES PERCENT MAN 2 % (4-12); SEG NEUTROPHILS PERCENT MAN 89 % (46-82)
[2022-08-26 10:18] LABS: INR 1.08 (1.00-1.24); PROTHROMBIN TIME 11.1 sec (9.0-11.1); PTT,PARTIAL THROMBOPLSTIN TIME 27.3 SECONDS (24.4-33.2)
[2022-08-26] MEDS: Acetaminophen 500 MG Tab PO ONE (10:36)
[2022-08-26] MEDS: Sodium Chloride 0.9% 1,000 ML IV SCH (10:45)
[2022-08-26] MEDS: Aspirin 81 MG Tab.Chew PO ONE (10:55)
[2022-08-26] MEDS: Clopidogrel 75 MG Tab PO ONE (10:56)
[2022-08-26 13:37] VITALS: BP 112/76; PULSE 78
== END 2022-08-26 12:52 ==
LOC: FB.ED 09:17
DX: I63.9 Cerebral infarction, unspecified (principal); I86.8 Varicose veins of other specified sites; J30.9 Allergic rhinitis, unspecified; K21.9 Gastro-esophageal reflux disease without esophagitis; K43.9 Ventral hernia without obstruction or gangrene; E66.01 Morbid (severe) obesity due to excess calories; M19.90 Unspecified osteoarthritis, unspecified site; G95.9 Disease of spinal cord, unspecified; M54.16 Radiculopathy, lumbar region; G47.33 Obstructive sleep apnea (adult) (pediatric); Z68.42 Body mass index [BMI] 45.0-49.9, adult; Z85.51 Personal history of malignant neoplasm of bladder; Z85.46 Personal history of malignant neoplasm of prostate; Z85.038 Personal history of other malignant neoplasm of large intestine; Z86.79 Personal history of other diseases of the circulatory system; I11.0 Hypertensive heart disease with heart failure; I50.30 Unspecified diastolic (congestive) heart failure; E78.00 Pure hypercholesterolemia, unspecified; I48.91 Unspecified atrial fibrillation; Z79.899 Other long term (current) drug therapy; Z88.0 Allergy status to penicillin; Z88.5 Allergy status to narcotic agent
CPT/HCPCS: 36415; 70450; 71045; 80053; 84484; 85025; 85610; 85730; 93005; 99285; A9270; J7030

== ENCOUNTER 2022-10-28 16:00 | Emergency (ER) | payer MEDICARE, BC, OTHER ==
[2022-10-28] MEDS ORDERED: Lidocaine 1% 20 ML MDV INFILT ONE (16:01)
[2022-10-28] MEDS: Diphtheria,Pertussis(Acell),Tetanus Vaccine 0.5 ML Syringe IM ONE (17:44)
[2022-10-28 19:52] VITALS: BP 139/75; PULSE 73
== END 2022-10-28 18:10 | disposition home or self-care (01) ==
LOC: FB.ED 16:00
DX: S01.81XA Laceration without foreign body of other part of head, initial encounter (principal); S61.412A Laceration without foreign body of left hand, initial encounter; I48.91 Unspecified atrial fibrillation; E78.00 Pure hypercholesterolemia, unspecified; I10 Essential (primary) hypertension; K21.9 Gastro-esophageal reflux disease without esophagitis; E66.9 Obesity, unspecified; Z68.30 Body mass index [BMI] 30.0-30.9, adult; Z88.5 Allergy status to narcotic agent; Z88.0 Allergy status to penicillin; Z79.01 Long term (current) use of anticoagulants; Z79.82 Long term (current) use of aspirin; Z23 Encounter for immunization; W01.0XXA Fall on same level from slipping, tripping and stumbling without subsequent striking against object, initial encounter
CPT/HCPCS: 12002; 12013; 70450; 90471; 90715; 99283-25

== ENCOUNTER 2024-08-18 19:59 | Emergency (ER) | payer MEDICARE, BC ==
[2024-08-18] MEDS ORDERED: predniSONE 20 MG Tab PO ONE (20:00)
[2024-08-18 20:18] VITALS: BP 125/81; PULSE 109
[2024-08-18] MEDS ORDERED: Sodium Chloride 0.9% 10 ML Syringe FLUSH PRN (20:19)
[2024-08-18 20:55] LABS: MEAN CORPUSCULAR HEMOGLOBIN 31.7 pg (27.0-33.3); MEAN PLATELET VOLUME 8.6 fL (6.7-11.0)
[2024-08-18] MEDS: Famotidine 20 MG/2 ML SDV IVPUSH ONE (20:57)
[2024-08-18] MEDS: diphenhydrAMINE 50 MG/ML SDV IVPUSH ONE (20:57)
[2024-08-18] MEDS: methylPREDNISolone Sodium Succinate 125 MG/2 ML SDV IVPUSH ONE (20:57)
[2024-08-18 21:00] LABS: BLOOD UREA NITROGEN,BUN 18 mg/dL (7-18); BUN/CREATININE RATIO 12.9 (9-20); CALCIUM 10.3 mg/dL (8.6-10.2); CARBON DIOXIDE,CO2 24 mmol/L (21-32); CHLORIDE,CL 100 mmol/L (100-110); CREATININE 1.4 mg/dL (0.70-1.30); EST CRCL DRUG DOSING (CG) 40.34 mL/min; ESTIMATED GFR 49 mL/min (>60); GLUCOSE RANDOM 190 mg/dL (80-116); HEMATOCRIT 44.9 % (38.3-50.1); HEMOGLOBIN 15.4 g/dL (12.9-17.7); MEAN CORPUSCULAR HGB CONC 34.3 g/dL (28.7-35.3); MEAN CORPUSCULAR VOLUME 92.6 fL (80.8-98.7); PLATELET COUNT,PLT 289 x10(3)uL (117-477); POTASSIUM,K 4.4 mmol/L (3.5-5.3); RED BLOOD CELL COUNT 4.85 x10(6)uL (3.90-5.90); RED CELL DISTRIBUTION WIDTH 13.8 % (12.4-15.0); SODIUM,NA 134 mmol/L (135-145); WHITE BLOOD CELL COUNT,WBC 10.2 x10-3/uL (3.2-10.1)
[2024-08-18] MEDS: Albuterol/Ipratropium 3.0-0.5 MG/3 ML Neb Soln NEB ONE (21:02)
[2024-08-18 21:05] LABS: ALANINE AMINOTRANSFERASE,ALT 26 U/L (12-36); ALBUMIN 3.7 g/dL (3.2-4.6); ALKALINE PHOSPHATASE 98 IU/L (56-112); ASPARTATE AMNIOTRANSFERASE,AST 20 IU/L (5-25); PROTEIN TOTAL,TP 7.3 g/dL (6.0-8.0)
[2024-08-18 21:11] LABS: TROPONIN I 13.4 pg/mL (4.0-60.3)
[2024-08-18 21:22] LABS: C-REACTIVE PROTEIN 2.94 mg/dL (<0.50)
[2024-08-18 21:23] LABS: LYMPHOCYTES PERCENT MAN 3 % (13-37); MONOCYTES PERCENT MAN 8 % (4-12); SEG NEUTROPHILS PERCENT MAN 89 % (46-82)
[2024-08-19] MEDS: diphenhydrAMINE 50 MG/ML SDV IVPUSH ONE (00:15)
== END 2024-08-19 01:26 | disposition home or self-care (01) ==
LOC: FB.ED 19:59
DX: R06.2 Wheezing (principal); L50.9 Urticaria, unspecified; I48.91 Unspecified atrial fibrillation; I10 Essential (primary) hypertension; E78.00 Pure hypercholesterolemia, unspecified; K21.9 Gastro-esophageal reflux disease without esophagitis; Z90.49 Acquired absence of other specified parts of digestive tract; Z88.0 Allergy status to penicillin; Z88.5 Allergy status to narcotic agent; Z79.01 Long term (current) use of anticoagulants; Z79.82 Long term (current) use of aspirin; Z79.899 Other long term (current) drug therapy
CPT/HCPCS: 36415; 71045; 80053; 83880; 84484; 85025; 86140; 93005; 94640; 96374; 96375; 96376; 99285; A9270; J1200; J2919; J7512